=== PATIENT | male | born 1950 | race Caucasian/White ===

== ENCOUNTER 2023-12-06 12:01 | Inpatient (IN) ==
[2023-12-06 12:48] LABS: Hematocrit (blood only) 31.4 % (42.0-52.0); Hemoglobin 9.6 g/dl (14.0-18.0); Mean Corpuscular Hemoglobin 24.6 pg (25.0-34.0); Mean Corpuscular Hgb Conc 30.6 g/dL (32.0-36.0); Mean Corpuscular Volume 80.5 fL (80.0-100.0); Mean Platelet Volume 9.4 fL (9.4-12.4); Nucleated RBC # (auto) 0.06 K/uL (0.00-0.12); Nucleated RBC % (auto) 0.3 %; Platelet Count 623 K/uL (130-400); RDW Coefficient of Variation 19.5 % (11.5-14.5); RDW Standard Deviation 56.5 fL (36.4-46.3); White Blood Count 18.06 K/ul (4.8-10.8)
[2023-12-06 13:07] LABS: Basophils # (auto) 0.01 K/uL (0.00-0.20); Basophils % (auto) 0.1 %; Eosinophils # (auto) 0.05 K/uL (0.00-0.50); Eosinophils % (auto) 0.3 %; Immature Granulocytes # (auto) 0.27 K/uL (0.01-0.20); Immature Granulocytes % (auto) 1.5 %; Lymphocytes # (auto) 0.66 K/uL (1.20-3.40); Lymphocytes % (auto) 3.7 %; Monocytes # (auto) 0.39 K/uL (0.11-0.59); Monocytes % (auto) 2.2 %; Neutrophils # (auto) 16.68 K/uL (1.40-6.50); Neutrophils % (auto) 92.2 %; Rouleaux 1+
[2023-12-06 13:13] LABS: Alanine Aminotransferase 76 U/L (7-52); Albumin Globulin Ratio 0.8 (0.9-2); Albumin Level 3.1 gm/dl (3.4-5.0); Alkaline Phosphatase 107 U/L (34-104); Anion Gap 11 (3-11); Aspartate Aminotransferase 61 U/L (13-39); BUN Creatinine Ratio 28.3 (10-20); Bilirubin,Total 0.5 mg/dl (0.2-1.0); Blood Urea Nitrogen 32 mg/dl (6-23); Calcium 8.9 mg/dl (8.6-10.3); Carbon Dioxide 24 mmol/L (21-32); Chloride 98 mmol/L (98-107); Globulin 3.9 gm/dl (2.5-4.0); Glucose 136 mg/dl (70-99(Fasting)); Potassium 4.4 mmol/L (3.5-5.1); Sodium 133 mmol/L (136-145)
[2023-12-06 13:18] LABS: Partial Thromboplastin Ratio 0.9; Partial Thromboplastin Time 24 Seconds (21-31); Prothrombin Time 11.1 Seconds (9.0-12.0)
[2023-12-06 13:19] LABS: Troponin I High Sensitivity 10.6 pg/ml (0-20)
--- NOTE | 2023-12-06 13:21 | Emergency Department Note ---
Impression & Plan Acute respiratory failure with hypoxia, Metastatic renal cell carcinoma to bone, SOB (shortness of breath), Acute pulmonary edema ED Provider Note NAME: OSCAR YIN AGE: 73 SEX: M : 1950 ARRIVES VIA: Walk-In INFORMANT: Patient ED PROVIDER(S): Armaan Diego DO CHIEF COMPLAINT: Shortness of breath HPI: Patient is a 73-year-old male with a past medical history of metastatic renal cell carcinoma and pneumonitis who presents to the ER for shortness of breath. He notes he has metastatic renal cell carcinoma and is taking Keytruda. Over the past 2 to 3 weeks his shortness of breath has been getting worse. He admits to being seen here recently and had a scan of his chest. Denies any headache or change in vision. No chest pain. No belly pain, nausea, vomiting, or diarrhea. No dysuria, urgency, or frequency. No other exacerbating or remitting factors. ADDITIONAL HISTORY OBTAINED: Per HPI Chronic Medical/Social Conditions Affecting Care: Per HPI PAST MEDICAL HISTORY:See Below PAST SURGICAL HISTORY:See Below FAMILY HISTORY:See Below SOCIAL HISTORY:See Below HOME MEDICATIONS:See Below ALLERGIES:See Below VITALS:See Below PHYSICAL EXAMINATION: GENERAL: Sitting up in bed, alert, well appearing, well nourished, no distress, non-toxic EYE EXAM: normal conjunctiva. OROPHARYNX: mucous membranes are moist NECK: supple, no nuchal rigidity, no adenopathy, non-tender LUNGS: Clear to auscultation. Normal chest wall mechanics HEART: no murmurs, S1 normal and S2 normal ABDOMEN: abdomen soft, non-tender, normo-active bowel sounds, no masses, no rebound or guarding. UPPER EXTREMITIES: upper extremities are grossly normal. LOWER EXTREMITIES: No pitting edema. Calves are equal bilaterally NEURO EXAM: Normal sensorium, cranial nerves II-XII grossly intact, normal speech, no gross weakness of arms, no gross weakness of legs. MEDICAL DECISION MAKING: Patient is a 73-year-old male who presents to the ER for shortness of breath. IV was established medicos obtained. Upon arrival he is found to be hypoxic at 88% on room air. He was placed on 2 L nasal cannula throughout his stay while in the ER. Labs show leukocytosis of 18,000. Mild anemia at 10. INR unremarkable. BMP along with LFTs bilirubin was unremarkable. Troponin was negative. Flu COVID and RSV was negative. Chest x-ray was obtained and did show pulmonary vascular congestion. Do favor this likely cause of the hypoxia. He was given IV Lasix. Updated bedside. Discussed case with the hospitalist for further evaluation management treatment. CT angio of the chest was negative done on the and was negative for PE and consequently did not repeat this as I do not feel this would be beneficial at this time. Consults/Care Managements Discussions: Per [facility] Triage Nursing notes reviewed. Limited review of prior medical records performed Vital Signs: reviewed and remarkable for hypoxia Differential diagnosis: Differential diagnoses includes but is not limited to pneumonia, bronchitis, COPD/Asthma exacerbation, pneumothorax, pulmonary embolism, congestive heart failure, acute coronary syndrome ER treatment provided: See below Diagnostics interpreted by me include EKG and cardiac monitoring as listed below: -Cardiac Monitoring: An order was placed for continuous cardiac monitoring. The monitor shows a rate of 94 with sinus rhythm. -ECG: Sinus rhythm rate of 94 Normal axis No PVCs QTc 415 -Laboratory studies:Interpreted by me as stated above in MDM and shown below. Imaging studies: Xrays: As interpreted by me: Portable AP upright 1 view of the chest shows pulmonary vascular congestion CTs show: none Procedures:none Critical Care: I have personally spent 32 minutes of critical care time in the direct management of this patient. This includes bedside care, interpretation of diagnostic studies, and testing, discussion with consultants, patient, and family members, and other required patient management activities. This 32 minutes is in excess of all separately billable procedures. Past Med/Surg History Problem List (Updated 12/06/23 @ 16:45 by Armaan Diego DO) Hypertension Acute pulmonary edema (Acute) Acute respiratory failure with hypoxia (Acute) Pneumonitis (Acute) SOB (shortness of breath) (Acute) Metastatic renal cell carcinoma to bone (Chronic) Medical History (Updated 12/06/23 @ 16:45 by Armaan Diego DO) MDD (major depressive disorder) Lyme disease Left inguinal hernia Hyperlipidemia BPH with elevated PSA Bloody stool COVID-19 Surgical History (Updated 10/27/22 @ 14:10 by Summer Escobedo RN) S/P TURP (transurethral resection of prostate) Hx of prostate biopsy H/O colonoscopy H/O hernia repair Family History (Updated 10/27/22 @ 13:23 by Summer Escobedo RN) Mother Cancer colon and metastatic liver Father Cancer Lung Sister Cancer Lung Sister Cancer Kidney Social History (Updated 10/27/22 @ 13:25 by Summer Escobedo RN) Smoking Status: Never smoker Second Hand Exposure: Yes; Hx Alcohol Use: Yes Alcohol type: beer Alcohol Intake Frequency: 2-3 x/Week Hx Substance Use: No Preferred Language: Divehi Visual Impairment: No Limitations Hearing Ability: Normal Ophthalmic Aide Required: No Beliefs That Will Affect Care: None Current Living Situation: Spouse current occupational status: retired current occupation: IT Feels Safe at Home: Yes Diet: regular Assistive Devices: Glasses Allergies Allergies Allergy/AdvReac Type Severity Reaction Status Date / Time Penicillins Allergy Intermediate Rash Verified 05/23/23 15:08 Home Meds Home Medications Medication Instructions Recorded Confirmed aspirin 81 mg chewable tablet 81 mg PO DAILY 10/27/22 05/23/23 bupropion HCl 100 mg tablet,12 hr 100 mg PO BID 10/27/22 05/23/23 sustained-release (Wellbutrin SR) cholecalciferol (vitamin D3) 100 100 mcg PO DAILY 10/27/22 05/23/23 mcg (4,000 unit) tablet ferrous sulfate 325 mg (65 mg 325 mg PO .QOD 10/27/22 05/23/23 iron) tablet,delayed release finasteride 5 mg tablet 5 mg PO DAILY 10/27/22 05/23/23 losartan 25 mg tablet (Cozaar) 25 mg PO DAILY 10/27/22 05/23/23 multivitamin 1 tab PO DAILY 10/27/22 05/23/23 omega 2-kyj-nrl-fish oil 1,000 mg 1 cap PO DAILY 10/27/22 05/23/23 (120 mg-180 mg) capsule (Fish Oil) simvastatin 10 mg tablet 10 mg PO DAILY 10/27/22 05/23/23 cabozantinib 40 mg tablet 40 mg PO DAILY 11/09/22 05/23/23 (Cabometyx) nivolumab 40 mg/4 mL intravenous IV 11/09/22 05/23/23 solution (Opdivo) ondansetron HCl 8 mg tablet 8 mg PO DAILY 11/09/22 05/23/23 prochlorperazine maleate 10 mg 10 mg PO Q6H PRN 11/09/22 05/23/23 tablet (Compazine) calcium carbonate (Calcium 500) 500 mg PO BID 05/23/23 05/23/23 mecobalamin (vitamin B12) 1,000 1,000 mcg PO BID 05/23/23 05/23/23 mcg chewable tablet Results & Data (ED) Vital Signs Vital Signs - 24 hr 12/06/23 12:10 Temperature 36.8 C Temperature Source Skin Pulse Rate 101 H Respiratory Rate 20 Blood Pressure 136/75 Blood Pressure Mean 95 Pulse Oximetry 89 L Oxygen Delivery Method Room Air Sepsis Recent Fever Within 48 Hours No Sepsis New/Unexplained Change in Mental Status No Sepsis Action Taken by Nursing No Action Required Laboratory Data 12/06/23 12:28 12/06/23 12:28 Lab Results 12/06/23 Range/Units 12:28 WBC 18.06 H (4.8-10.8) K/ul RBC 3.90 L (4.70-6.10) M/uL Hgb 9.6 L (14.0-18.0) g/dl Hct 31.4 L (42.0-52.0) % MCV 80.5 (80.0-100.0) fL MCH 24.6 L (25.0-34.0) pg MCHC 30.6 L (32.0-36.0) g/dL RDW Std Deviation 56.5 H (36.4-46.3) fL RDW Coeff of Gumaro 19.5 H (11.5-14.5) % Plt Count 623 H (130-400) K/uL MPV 9.4 (9.4-12.4) fL Immature Gran % (Auto) 1.5 % Neut % (Auto) 92.2 % Lymph % (Auto) 3.7 % Collin % (Auto) 2.2 % Eos % (Auto) 0.3 % Baso % (Auto) 0.1 % Neut # (Auto) 16.68 H (1.40-6.50) K/uL Lymph # (Auto) 0.66 L (1.20-3.40) K/uL Collin # (Auto) 0.39 (0.11-0.59) K/uL Eos # (Auto) 0.05 (0.00-0.50) K/uL Baso # (Auto) 0.01 (0.00-0.20) K/uL Immature Gran # (Auto) 0.27 H (0.01-0.20) K/uL Absolute Nucleated RBC 0.06 (0.00-0.12) K/uL Nucleated RBC % (auto) 0.3 % Rouleaux 1+ PT 11.1 (9.0-12.0) Seconds INR 1.0 (0.9-1.1) APTT 24 (21-31) Seconds PTT Ratio 0.9 Sodium 133 L (136-145) mmol/L Potassium 4.4 (3.5-5.1) mmol/L Chloride 98 (98-107) mmol/L Carbon Dioxide 24 (21-32) mmol/L Anion Gap 11 (3-11) BUN 32 H (6-23) mg/dl Creatinine 1.13 (0.6-1.4) mg/dl Est Cr Clr Drug Dosing Not Reportable eGFR 69.06 BUN/Creatinine Ratio 28.3 H (10-20) Glucose 136 H (70-99(Fasting)) mg/dl Calcium 8.9 (8.6-10.3) mg/dl Total Bilirubin 0.5 (0.2-1.0) mg/dl AST 61 H (13-39) U/L ALT 76 H (7-52) U/L Alkaline Phosphatase 107 H (34-104) U/L Troponin I High Sens 10.6 (0-20) pg/ml Total Protein 7.0 (6.0-8.3) gm/dl Albumin 3.1 L (3.4-5.0) gm/dl Globulin 3.9 (2.5-4.0) gm/dl Albumin/Globulin Ratio 0.8 L (0.9-2) SARS-CoV-2 (PCR) NEGATIVE (Negative) Influenza Type A (PCR) Negative (Neg) Influenza Type B (PCR) Negative (Neg) RSV (RT-PCR) Negative (Neg) Administered Medications Discontinued Medications Furosemide (Furosemide 40 Mg/4 Ml Vial) 40 mg IV NOW STA Stop: 12/06/23 14:04 Last Admin: 12/06/23 14:37 Dose: 40 mg Documented By: NRB Imaging Data Radiologist's Impression: Chest X-Ray 12/06/23 12:14 SINGLE VIEW CHEST CLINICAL HISTORY: Atypical chest pain. FINDINGS: An AP, portable, upright chest radiograph is compared to chest x-ray and chest CT dated 12/01/2023. The heart is enlarged. There is pulmonary vascular congestion with evidence of interstitial edema. Atelectasis is noted at the lung bases. Small pleural effusions are suspected. No pneumothorax is seen. The skeletal structures are osteopenic. The bony thorax is grossly intact. Degenerative change is noted in the spine. IMPRESSION: 1. Cardiomegaly with evidence of congestive failure and pulmonary edema. This has worsened as compared to 12/01/2023. Correlate clinically for evidence of a superimposed infectious/inflammatory pneumonitis. Radiographic follow-up to resolution is recommended. 2. Suspect small pleural effusions ACT 112: Negative or not required by law. Electronically signed by: Jim Griffin M.D. 12/06/2023 1:39 PM Discharge Plan Visit Data Chief Complaint: Shortness of Breath/Dyspnea Stated Complaint: FEVER, SOB, COUGH, LOW O2 ED Provider: Armaan Diego Discharge Problem: Acute respiratory failure with hypoxia, Metastatic renal cell carcinoma to bone, SOB (shortness of breath), Acute pulmonary edema Patient Disposition: Admitted As Inpatient Discharge Instructions Interventions: ED Discharge Assessment Last Done: 12/06/23 15:50
[2023-12-06 13:39] LABS: Influenza A virus by PCR Negative (Neg); Influenza B virus by PCR Negative (Neg); RSV by PCR Negative (Neg); SARS CoV2 RNA(COVID-19) Ceph NEGATIVE (Negative)
--- NOTE | 2023-12-06 13:40 | XRay Report ---
SINGLE VIEW CHEST CLINICAL HISTORY: Atypical chest pain. FINDINGS: An AP, portable, upright chest radiograph is compared to chest x-ray and chest CT dated 11/05. The heart is enlarged. There is pulmonary vascular congestion with evidence of interstitial e ting. Atelectasis is noted at the lung bases. Small pleural effusions are suspected. No pneumothorax is seen. The skeletal structures are osteopenic. The bony thorax is grossly intact. Degenerative roldan ge is noted in the spine. IMPRESSION: 1. Cardiomegaly with evidence of congestive failure and pulmonary edema. This has worsened as compare d to 12/01/2023. Correlate clinically for evidence of a superimposed infectious/inflammatory pneumonit is. Radiographic follow-up to resolution is recommended. 2. Suspect small pleural effusions ACT 112: Negative or not required by law. Electronically signed by: Jim Griffin M.D. 12/06/2023 1:39 PM
[2023-12-06] MEDS: FUROSEMIDE 40 MG/4 ML VIAL IV STA (14:37)
--- NOTE | 2023-12-06 15:28 | History & Physical Report ---
Date of Service December 06, 2023 Assessment & Plan (1) Acute respiratory failure with hypoxia: (2) Pneumonitis: (3) Acute pulmonary edema: (4) Metastatic renal cell carcinoma to bone: (5) Hypertension: Plan: 73-year-old male with history of metastatic renal cell carcinoma, with osseous and pulmonary hilar/mediastinal mets, hypertension, and other problems noted below presenting with shortness of breath and cough x 1 to 2 weeks. Acute respiratory failure with hypoxia, multifactorial, secondary to: Pulmonary edema, rule out CHF Check echocardiogram Lasix 40 mg IV daily Pneumonitis, secondary to immunotherapy Presence of mediastinal metastatic disease Currently Keytruda on hold Continue prednisone 60 mg p.o. daily started by oncologist last November 28, 2023 Check procalcitonin Start Levaquin for possible bacterial pneumonia component given immunocompromised state Start nebs 4 times daily, incentive spirometry, flutter valve Will order pulmonology service evaluation Metastatic renal cell carcinoma with osseous and pulmonary involvement Currently Keytruda on hold as per oncologist Dr. West Hypertension Patient reports blood pressure was on the lower side this morning Hold losartan DVT prophylaxis Lovenox 1 mg subcu daily CODE STATUS Patient okay with CPR and defibrillation, no mechanical ventilation or intubation Disposition Lives with family at home History of Present Illness Chief Complaint: Shortness of breath x 1-2 weeks Primary Care Provider: Joe Osborn MD 73-year-old male with history of metastatic renal cell carcinoma, with osseous and pulmonary hilar/mediastinal mets, hypertension, and other problems noted below presenting with shortness of breath and cough x 1 to 2 weeks. Patient follows with [facility] oncology and [facility] in [place]. About 2 weeks ago, patient developed dry cough and shortness of breath associated with some voice hoarseness. CT chest done as an outpatient showed new bilateral micronodular infiltrates consistent with pneumonitis. Symptoms felt to be multifactorial secondary to drug-induced pneumonitis, presence of bulky mediastinal mid metastatic disease process. He was started on prednisone 60 mg p.o. daily last November 28, 2023. Due to persistence of symptoms, patient was referred to dietary pulmonary service and was seen last December 04, 2023. He was advised to continue with the prednisone 60 mg p.o. daily and HCTZ 12.5 mg daily as needed for lower EXTR edema was also started. Today, patient presented to the ER for worsening of shortness of breath and cou gh. Denies fevers or chills. Found to be hypoxic in the ER in the high 90s on room air, placed on 2 L of O2 by cell cannula. Chest x-ray showing possible pulmonary edema and groundglass opacities possible infectious versus inflammatory in etiology. On exam, patient seen resting in bed, comfortable on 2 L of O2. No other new symptoms. Allergies Allergy/AdvReac Type Severity Reaction Status Date / Time Penicillins Allergy Intermediate Rash Verified 05/23/23 15:08 Home Medications Medication Instructions Recorded Confirmed Type aspirin 81 mg chewable tablet 81 mg PO DAILY 10/27/22 05/23/23 History bupropion HCl 100 mg tablet,12 hr 100 mg PO BID 10/27/22 05/23/23 History sustained-release (Wellbutrin SR) cholecalciferol (vitamin D3) 100 100 mcg PO DAILY 10/27/22 05/23/23 History mcg (4,000 unit) tablet ferrous sulfate 325 mg (65 mg 325 mg PO .QOD 10/27/22 05/23/23 History iron) tablet,delayed release finasteride 5 mg tablet 5 mg PO DAILY 10/27/22 05/23/23 History losartan 25 mg tablet (Cozaar) 25 mg PO DAILY 10/27/22 05/23/23 History multivitamin 1 tab PO DAILY 10/27/22 05/23/23 History omega 3-coo-spe-fish oil 1,000 mg 1 cap PO DAILY 10/27/22 05/23/23 History (120 mg-180 mg) capsule (Fish Oil) simvastatin 10 mg tablet 10 mg PO DAILY 10/27/22 05/23/23 History cabozantinib 40 mg tablet 40 mg PO DAILY 11/09/22 05/23/23 History (Cabometyx) nivolumab 40 mg/4 mL intravenous IV 11/09/22 05/23/23 History solution (Opdivo) ondansetron HCl 8 mg tablet 8 mg PO DAILY 11/09/22 05/23/23 History prochlorperazine maleate 10 mg 10 mg PO Q6H PRN 11/09/22 05/23/23 History tablet (Compazine) calcium carbonate (Calcium 500) 500 mg PO BID 05/23/23 05/23/23 History mecobalamin (vitamin B12) 1,000 1,000 mcg PO BID 05/23/23 05/23/23 History mcg chewable tablet Past Med/Surg History Problem List (Updated 12/06/23 @ 15:34 by Rk Sanderson MD) Hypertension Acute pulmonary edema Acute respiratory failure with hypoxia Pneumonitis (Acute) SOB (shortness of breath) (Acute) Metastatic renal cell carcinoma to bone (Chronic) Medical History (Updated 12/06/23 @ 15:34 by Rk Sanderson MD) MDD (major depressive disorder) Lyme disease Left inguinal hernia Hyperlipidemia BPH with elevated PSA Bloody stool COVID-19 Surgical History (Updated 10/27/22 @ 14:10 by Summer Escobedo, BASSAM) S/P TURP (transurethral resection of prostate) Hx of prostate biopsy H/O colonoscopy H/O hernia repair Family History (Updated 10/27/22 @ 13:23 by Summer Escobedo, RN) Mother Cancer colon and metastatic liver Father Cancer Lung Sister Cancer Lung Sister Cancer Kidney Social History (Updated 10/27/22 @ 13:25 by Summer Escobedo, RN) Smoking Status: Never smoker Second Hand Exposure: Yes; Hx Alcohol Use: Yes Alcohol type: beer Alcohol Intake Frequency: 2-3 x/Week Hx Substance Use: No Preferred Language: Estonian Visual Impairment: No Limitations Hearing Ability: Normal Beliefs That Will Affect Care: None Current Living Situation: Spouse current occupational status: retired current occupation: IT Feels Safe at Home: Yes Diet: regular Assistive Devices: Glasses Review of Systems Review of Systems: all noted and negative except for above Physical Exam Physical Exam: General- oriented x 3, not in distress, speaks in sentences with no effort or accessory muscle use Head- atraumatic Eyes- PERRL, EOMI, anicteric ENT- oropharynx clear Neck- supple, no JVD, no adenopathy, no thyromegaly; carotids +2/2, no bruits appreciated Lungs-Positive crackles bilateral bases, no wheezing, good air entry bilaterally Heart- normal rate, regular rhythm; no murmur, no gallop, no rub appreciated Abdomen- normal bowel sounds, nondistended, soft, nontender, no masses or hepatosplenomegaly Extremities-mild lower extremity edema, no calf tenderness; peripheral pulses intact Neuro- alert, oriented x 3; CN 2-12 grossly intact; motor 5/5 bilaterally;sensation 100% on all extremities; no other gross focal neurologic deficits Skin- warm & dry Results & Data Results & Data Vital Signs (Past 12 Hours) Vital Signs Temp Pulse Resp BP Pulse Ox O2 Del Method 12/06/23 12:10 36.8 C 101 H 20 136/75 89 L Room Air all noted and reviewed including below Code Status & VTE Plan VTE Prophylaxis Plan VTE Prophylaxis will be ordered: Yes
--- NOTE | 2023-12-06 15:29 | Electrocardiogram Report ---
Test Reason : Blood Pressure : */* mmHG Vent. Rate : 94 BPM Atrial Rate : 94 BPM P-R Int : 146 ms QRS Dur : 82 ms QT Int : 332 ms P-R-T Axes : 35 -12 10 degrees QTcB Int : 415 ms Normal sinus rhythm Minimal voltage criteria for LVH, may be normal variant Borderline ECG When compared with ECG of 01-Dec-2023 15:29, No significant change was found Confirmed by Mauricio Salguero ([id number]) on 12/06/2023 3:29:01 PM Referred By: Confirmed By: Mauricio Salguero
[2023-12-06] MEDS ORDERED: ACETAMINOPHEN 325 MG TAB PO PRN (16:14)
[2023-12-06] MEDS ORDERED: Patient's HEIGHT &/or WEIGHT Needed SCH (16:30)
[2023-12-06] MEDS: ADVANCED PROBIOTIC 625 MG CAPSULE PO SCH (18:09)
[2023-12-06] MEDS: levoFLOXacin 750 MG TAB PO ONE (18:09)
[2023-12-06] MEDS ORDERED: ALBUTEROL HFA 8 GM INHALER INH PRN (18:25)
[2023-12-06] MEDS: ACETAMINOPHEN W/CODEINE #3 1 TAB PO PRN (18:36)
[2023-12-06] MEDS: FERROUS SULFATE 325 MG TAB PO SCH (19:51)
[2023-12-06] MEDS: POLYETHYLENE (MIRALAX) 17 GM PACK PO SCH (20:42)
[2023-12-06] MEDS: buPROPion SR 100 MG TABCR PO SCH (20:45)
[2023-12-06] MEDS: CALCIUM CARBONATE 1250MG TAB PO SCH (20:45)
[2023-12-06] MEDS: CYANOCOBALAMIN (B-12) 500 MCG TABLET PO SCH (20:46)
[2023-12-06] MEDS: LEVALBUTEROL HCL 0.63 MG/3 ML NEB NEB SCH (20:51)
--- OUTSIDE RECORDS SUMMARY | 2023-12-07 00:12 | External Medical Summary | Summary of Care ---
Author Name Unknown Organization [facility] Address [address] [place] [address] Phone [phone] Care Team Providers Care Line Servicer Name Role Phone Joe Osborn MD Primary Care Provider + Reason for Visit * Reason Onset Date Comments Advice 12/04/2023 Dr. West Test Results 12/04/2023 Encounter Details Date Type Department Care Team (Late st Contact Info) Description 12/04/2023 Telephone Hematology/Oncology [facility] [place] 200 [facility] [place] [phone] Rafael West MD 200 [facility] [place] [address] Advice (Dr. West ); Test Results Allergies Active Allergy Reactions Criticality Noted Date Comments Penicillins Rash 08/26/2015 Age 19 had hepatitis a and got a rash. documented as of this encounter (statuses as of 12/04/2023) Medications Medication Sig Dispensed Refills Start Date End Date Status Aspirin 81 MG Tablet Take 1 Tablet by mouth in the morning. Active Fish Oil 1000 MG Oral Capsule Take 1 Capsule by mouth in the morning. Active Vitamin D3 50 MCG (1999) Oral Capsule Take 50 Units by mouth daily. 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 30 Tablet 3 10/27/2022 Active Additional Information Patient not taking.Reported on 11/27/2023 Prochlorperazine Maleate 10 MG Oral Tablet (Compazine)Indicatio ns:Malignant neoplasm of left kidney (HCC) Take 1 Tablet by mouth every 6 hours as needed for Nausea. 30 Tablet 3 10/27/2022 Active Additional Information Patient not taking.Reported on 11/27/2023 Udderly Smooth Extra Care 20 External CreamIndications:Mal ignant neoplasm of left kidney (HCC) Apply topically to affected area 2 times a day. Apply topically to hands and feet twice daily 228 g 3 10/27/2022 Active Sodium Fluoride 1.1 % Dental Cream (PreviDent 5000 Plus) [place] with a pea-size amount each evening before bed for 2 minutes. Spit but do not rinse after. 51 g 3 11/17/2022 Active Clobetasol Propionate 0.05 % External Ointment (Temovate)Indication s:Hand foot syndrome Apply topically to affected area 2 times a day. Apply to hands and feet 30 g 1 01/03/2023 Active Simvastatin 10 MG Oral Tablet (Zocor)Indications:H yperlipidemia, unspecified hyperlipidemia type TAKE ONE TABLET BY MOUTH EVERY DAY 90 Tablet 1 04/04/2023 04/03/19 25 Active Finasteride 5 MG Oral Tablet (Proscar) TAKE ONE TABLET BY MOUTH IN THE MORNING 90 Tablet 3 04/04/2023 04/03/19 25 Active Ammonium Lactate 12 % External Lotion (Amlactin Daily) Apply topically to affected area as needed for Dry Skin. Apply to both feet once daily. 400 g 1 05/10/2023 Active B-12 1000 MCG Oral Tablet Take by mouth. Active Calcium Carbonate 1250 (500 Ca) MG Oral Tablet Chewable 1 Tablet. 05/23/2023 Acti ve LORazepam 0.5 MG Oral Tablet (Ativan)Indications: VIANEY (generalized anxiety disorder) Take 1 Tablet by mouth 3 times a day as needed for Anxiety. 30 Tablet 1 06/19/2023 Active Albuterol Sulfate HFA 108 (90 Base) MCG/ACT Inhalation Aerosol Solution Inhale 1 puff by mouth every 6 (six) hours as needed for wheezing or shortness of breath. 8.5 g 3 06/29/2023 Active Additional Information Patient not taking.Reported on 11/27/2023 Clindamycin HCl 300 MG Oral Capsule Take 1 capsule by mouth every six hours until finished 24 Capsule 07/03/2023 Active Additional Information Patient not taking.Reported on 11/09/2023 Chlorhexidine Gluconate 0.12 % Mouth/Throat Solution (Periogard) Swish 15ml in the mouth two times a day (after meals) 473 mL 07/03/2023 Active Additional Information Patient not taking.Reported on 11/27/2023 Losartan Potassium 25 MG Oral Tablet (Cozaar) Take 1 Tablet by mouth in the morning. 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 90 Capsule 3 07/26/2023 Active Clindamycin HCl 150 MG Oral Capsule (Cleocin) take 1 capsule by mouth every 6 hours until gone 40 Capsule 1 08/22/2023 Active Additional Information Patient not taking.Reported on 11/09/2023 buPROPion HCl ER (SR) 100 MG Oral Tablet Extended Release 12 Hour (Wellbutrin SR) TAKE ONE TABLET BY MOUTH EVERY MORNING AND ONE TABLET BEFORE BEDTIME 200 Tablet 3 09/05/2023 Active Levothyroxine Sodium 25 MCG Oral Tablet (Levoxyl) Take 1 tablet (25 mcg) by mouth daily. 30 Tablet 11 10/05/2023 Active Lenvima (18 MG Daily Dose) 10 MG & 2 x 4 MG Oral Capsule Therapy Pack (Lenvatinib (18 MG Daily Dose)) Take 3 capsules (18 mg) by mouth daily. 90 Each 11 10/05/2023 Active Additional Information Patient taking differently: 14 mg daily, Reported on 11/27/2023 Ferrous Sulfate 325 (65 Fe) MG Oral Tablet (FeroSul)Indications :Iron deficiency anemia Take 1 Tablet by mouth every other day. 45 Tablet 3 10/25/2023 Active predniSONE 10 MG Oral Tablet (Deltasone)Indicatio ns:Drug-induced pneumonitis Take 6 Tablets by mouth in the morning. Or as directed by Oncology office. Take with food.. 150 Tablet 11/28/2023 Active Omeprazole 20 MG Oral Capsule Delayed Release (PriLOSEC)Indication s:Drug-induced pneumonitis Take 1 Capsule by mouth in the morning. 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 50 Tablet 2 11/30/2023 Active hydroCHLOROthiazide 12.5 MG Oral Tablet Take 1 Tablet by mouth at bedtime as needed for Other (Worsening edema in lower extremities.). 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 02/21 colon WNL armond 5y 10/19 colonoscopy 7mm sigmoid polyp . Path tubular adenoma. Armond 3y due to poor prep BPH with elevated PSA Overview: 2018 WNL . Armond 2y. Had elev PSA in past 2002 biopsy at time WNL, went on meds, no symptoms, PSA 4 this spring. See scanned results. Up from 3 1 yA Family history of colon cancer in mother MDD (major depressive disorder), recurrent episo de, mild Hyperlipidemia documented as of this encounter (statuses as of 12/04/2023) Resolved Problems Problem Noted Date Diagnosed Date Resolved Date COVID-19 virus infection 08/10/2022 Left flank pain 07/06/2022 10/24/2023 Left inguinal hernia 03/09/2016 023 Blood stool 08/29/2016 documented as of this encounter (statuses as of 12/04/2023) Immunizations Name Administration Dates Next Due COVID-19 mRNA, LNP-s, No Pre serve, 2-Dose Series (eTruck) 12/09/2020,05/13/2020,04/15/2020 COVID-19, LNP-s, No Preserve , Ryder-sucrose, Ages 12+ (eTruck) 08/30/2021 COVID-19, MRNA-LNP, 23-24, P F, 30 MCG/0.3 mL, 12 YRS AND ABOVE, IM ([facility]) 06/20/2023 Covid-19, Mrna, Lnp-s, Pf, B ivalent, 30 Mcg, IM, 12 yrs and above (eTruck) 12/31/2021 Pneumococcal Conjugate Vacc, 13 Valent (Prevnar) 08/29/2016 Pneumococcal Polysaccharide PPV23 (Pneumovax) 08/30/2017 Season Influenza, Quad, PF, Adjuvanted, 65+ Yrs, IM (FLUAD) 12/20/2019 Seasonal Influenza, High Dos e, Trivalent, PF, IM (Fluzone HD) 11/09/2023 Seasonal Influenza, PF, 6 M & above, IM , (FluLaval or Fluzone) 12/05/2020,11/22/2017,01/04/2017 Seasonal Influenza, Quadriva lent Hd (Fluzone Hd) 12/19/2022,12/08/2021 Seasonal Influenza, Quadriva lent, No Preserve, IM 11/24/2015 Seasonal Influenza, Trivalen t, (IIV3), with Preserv, (Fluzone) 12/25/2018 Seasonal Influenza, Trivalen t, Adjuvanted, 65+ YRS, PF, (Fluad) 12/25/2018 TDAP (age 10 and older)(Boostrix) 08/26/2015 Varicella Zoster Vaccine (Adult) 09/04/2011 Zoster Vaccine Recombinant (Shingrix) 02/06/2018 ,08/30/2017 documented as of this encounter Social History Tobacco Use Types Packs/Day Years Used Date Smoking Tobacco: Never Smokeless Tobacco: Never Alcohol Use Standard Drinks/Week Comments Not Currently 3 (1 standard drink = 0.6 oz pur e alcohol) update to Zero w/ch PHQ-2 Answer Date Recorded PHQ Adult Total Score 0 06/15/2022 Hunger Vital Sign Answer Date Recorded Within the past 12 months, y ou worried that your food would run out before you got the money to buy more. Never true 06/16/19 23 Within the past 12 months, t he food you bought just didn't last and you didn't have money to get more. Never true 06/15/2022 Utilities Answer Date Recorded Do you have trouble paying y our heating, water, or electric bill? (Adult - for ages 18 years and over) Not on file 08/22/2023 Is your family able to pay t he heat, water, or electric bill? (Household - for ages 0-17 years) Not on file 08/22/2023 Does your family have access to good internet? (Household - for ages 0-17 years) Not on file 08/22/2023 Social Connections Answer Date Recorded How often do you feel lonely or isolated from those around you? (Adult - for ages 18 years and over) Not on file 08/22/2023 Sex and Gender Information Value Date Recorded Sex Assigned at Male 06/15/2022 8:17 AM EDT Gender Identity Male 06/15/2022 8:17 AM EDT Sexual Orientation Straight 06/15/2022 8: 17 AM EDT Job Start Date Occupation Industry Not on file Not on file Not on file documented as of this encounter Miscellaneous Notes * Telephone Encounter - Nader Elizondo RN - 12/04/2023 2:[address] West/Damaris- ISABEL, patient seen at [facility] ER 11/30 for SOB. PT 02 sat 97%, CTA of Chest completed as well as CXR andEKG. Pt discharged same day and advised to follow up. He is scheduled to see Damaris on 12/11. * Telephone Encounter - Nader Elizondo RN - 12/04/2023 2:45 PM EDT Called patients Yulia back. No answer, LMOM with return #. * Telephone Encounter - Karie Justin OSA - 12/04/2023 2:33 PM EDT Patients Yulia called to speak with Savi. She advised he had lab work completed this morningas Damaris Dickey instructed him too. She also advised Bayron went to the ER on Monday and they advised him to follow up with hem/onc on Monday. She was inquiring Dr. West's office would want him to be seen in person or if she could just speak with someone about his ER visit. Please contact Yulia at your earliest convenience at [phone]. She advised she will be unavailable from 3-4 pm today. Thank you. documented in this encounter Plan of Treatment Upcoming Encounters Date Type Department Care Team (Late st Contact Info) Description 12/12/2023 3:00 PM EDT Office Visit [facility]ematology[facility] [phone] [facility] [place] [address] 12/13/2023 11:30 AM EDT Office Visit Urology, [facility] 132 [facility] [place] [address] Shar Brown MD 27 [facility] [place] [address] 12/19/2023 9:30 AM EDT Pharmacy Pharmacy Hematology Oncology [facility] [address] [place] [address] [facility], [facility] Hem/Onc [address] [place] [address] 12/25/2023 11:20 AM EDT Office Visit Family Practice [facility] [address] [place] [address] Joe Osborn MD [address] [place] [address] 12/27/2023 2:45 PM EDT Office Visit Hematology/Oncology [facility] [address] [place] [phone] Rafael West MD 200 [facility] [place] [address] 01/01/2024 2:15 PM EDT Office Visit Dermatology [facility] 200 [facility] [place], [place] [address] Bayron Molina MD 200 [facility] [place], [place] [address] 03/11/2024 3:20 PM EST Office Visit Pulmonary Medicine, [facility] [address] [place] [address] Isael Ang MD [address] [place] [address] 06/20/2024 9:20 AM EDT Office Visit Family [facility] [address] [place] [address] Joe Osborn MD [address] [place] [address] 09/25/2024 7:40 AM EDT Office Visit Pulmonary Medicine, [facility] [address] [place] [address] Isael Ang MD [address] [place] [address] Scheduled Procedures Name Priority Associated Diagnoses Date/Ti me COLONOSCOPY FLEXIBLE PROXIMA L DIAGNOSTIC Recall History of colon polyps Family history of colon cancer Health Maintenance Due Date Last Done Comments Cologuard 05/16/1996 Fecal Occult Blood Test 05/16/1996 Sigmoidoscopy 05/16/1996 Adult Wellness Visit 05/16/2017 Depression Monitoring 06/16/2023 06/15/2022 COVID-19 Vaccine ( season) 2023 06/20/2023, 12/31/2021, 08/30/2021, Additional history exists Colonoscopy 02/20/2024 02/19/2019, 02/03, 10/26/2015, Additional history exists Colorectal Cancer Screening 02/20/2024 TSH 11/27/2024 11/28/2023, 05/2023, 10/17/2023, Additional history exists GFR 12/03/2024 12/04/2023, 11/05, 11/07/2023, Additional history exists Albumin/Creatinine Ratio 07/07/2025 07/07/2022 DTap/Tdap Vaccines (2 - Td or Tdap) 08/25/2025 08/26/2015 Lipid Panel 05/01/2028 05/01/2023, 100 07/2021, 10/05/2020, Additional history exists Pneumococcal Vaccine: 65+ Years Completed 08/30/2017, 08/29/2016 Zoster Vaccines Completed 02/06/2018, 08/05, 09/04/2011 RETIRED - COLONOSCOPY-EVERY 5 YRS AGES 18-100 Discontinued 02/19/2019, 02/19/2019, 10/26/2015, Additional history exists Influenza Vaccine (FLU shot) Completed 11/09/2023, 12/19/2022, 12/08/2021, Additional history exists HPV (Gardasil) Vaccine Aged Out No lo nger eligible based on patient's age to complete this topic Hepatitis B Vaccine Aged Out No longe r eligible based on patient's age to complete this topic MENINGOCOCCAL (MENACTRA/MENVEO) Aged Out No longer eligible based on patient's age to complete this topic documented as of this encounter Medical Devices Implanted Type Area Director Clinical Applications Device Identifier Shelf Expiration Date Model / Serial / Lot Mesh 3dmax 3.1x5.3in Lft Med - [id number] Implanted:Qty: 1 on 12/18/2017 by Aashish Schwartz MD at OR [facility] Left: Groin CR BARD : DAVOL 09/30/2021 [id number] / / [id number] documented as of this encounter Advance Directives * Full Code (Latest Code Status on File) Date Activated Date Inactivated Comments 10/04/2022 5:49 PM 10/04/2022 11:15 PM This order re flects the patients wishes and were consensually agreed upon. Question Answer Comments Discussion of Advance Direct britta occurred with: Not Discussed due to patient's condition * Full Code Date Activated Date Inactivated Comments 10/04/2022 2:12 PM 10/04/2022 5:49 PM This order ref lects the patients wishes and were consensually agreed upon. Question Answer Comments Discussion of Advance Directives occurred with: Patient Care Teams Line Servicer Relationship Specialty Start Date End Date Joe Osborn MD [address] [place] [address] PCP - General Family Medicine 08/26/15 documented as of this encounter
--- OUTSIDE RECORDS SUMMARY | 2023-12-07 00:12 | External Medical Summary | Summary of Care ---
Author Name Unknown Organization [facility] Address [address] [place] [address] Phone [phone] Care Team Providers Care Vp & General Counsel Name Role Phone Joe Osborn MD Primary Care Provider + Reason for Visit * Reason Onset Date Comments Advice 12/04/2023 Dr. West Test Results 12/04/2023 Encounter Details Date Type Department Care Team (Late st Contact Info) Description 12/04/2023 Telephone Hematology/Oncology [facility] [place] [address] [facility] [place] [phone] Rafael West MD 200 [facility] [place] [address] Advice (Dr. West ); Test Results Allergies Active Allergy Reactions Criticality Noted Date Comments Penicillins Rash 08/26/2015 Age 19 had hepatitis a and got a rash. documented as of this encounter (statuses as of 12/05/2023) Medications Medication Sig Dispensed Refills Start Date [...] 1.1 % Dental Cream (PreviDent 5000 Plus) [place] with a pea-size amount each evening before [...] as of this encounter (statuses as of 12/05/2023) Active Problems Problem Noted Date Diagnosed Date [...] as of this encounter (statuses as of 12/05/2023) Resolved Problems Problem Noted Date Diagnosed Date Resolved Date COVID-19 virus infection 08/10/2022 Left flank pain 07/06/2022 10/24/2023 Left inguinal hernia 03/09/2016 023 Blood stool 08/29/2016 documented as of this encounter (statuses as of 12/05/2023) Immunizations Name Administration Dates Next Due COVID-19 mRNA, LNP-s, No Pre serve, 2-Dose Series (ii4b) 12/09/2020,05/13/2020,04/15/2020 COVID-19, LNP-s, No Preserve , Ryder-sucrose, Ages 12+ (ii4b) 08/30/2021 COVID-19, MRNA-LNP, 23-24, P F, 30 MCG/0.3 mL, 12 YRS AND ABOVE, IM ([facility]) 06/20/2023 Covid-19, Mrna, Lnp-s, Pf, B ivalent, 30 Mcg, IM, 12 yrs and above (ii4b) 12/31/2021 Pneumococcal Conjugate Vacc, 13 Valent (Prevnar) [...] encounter Miscellaneous Notes * Telephone Encounter - Savi Small RN - 12/05/2023 9:22 AM EDT Reviewed with Dr West. Patient should continue 60mg prednisone daily. Patient is scheduled to see Damaris 12/12/23. Plan is to potentially decrease to 50mg prednisone daily when patient is seen, depending on symptoms. Can consider also adding in bactrim prophylaxis at office visit next week. Called patient. He verbalized understanding. * Telephone Encounter - Nader Elizondo RN - 12/04/2023 2:[address] West/Slava HALL, patient seen at [facility] ER 11/30 for SOB. PT 02 sat [...] contact Yulia at your earliest convenience at [phone]. She advised she will be unavailable from 3-4 pm today. Thank you. documented in this encounter Plan of Treatment Upcoming Encounters Date Type Department Care Team (Late st Contact Info) Description 12/12/2023 3:00 PM EDT Office Visit Hematology/Oncology [facility] [address] [place] [phone] Damaris Dickey CRNP [address] [place] [address] 12/13/2023 11:30 AM EDT Office Visit Urology, [facility] [address] [place] [address] Shar Brown MD [address] [place] [address] 12/19/2023 9:30 AM EDT Pharmacy Pharmacy Hematology Oncology [facility] [address] [place] [address] [facility] Hem/Onc [address] [place] [address] 12/25/2023 11:20 AM EDT Office Visit [facility] 132 [facility] [place] [address] Joe Osborn MD 132 [place] [address] 12/27/2023 2:45 PM EDT Office Visit Hematology/Oncology [facility] [address] [facility] [place] [address] Rafael West MD [address] [facility] [place] [place] [address] 01/01/2024 2:15 PM EDT Office Visit Dermatology [facility] [address] [facility] [place] [place] [address] Bayron Molina MD [address] [facility] [place] [place] [address] 03/11/2024 3:20 PM EST Office Visit Pulmonary Medicine, [facility] 132 [facility] [place] [address] Isael Ang MD [address] [place] [address] 06/20/2024 9:20 AM EDT Office Visit [facility] [place] [address] Joe Osborn MD [address] [place] [address] 09/25/2024 7:40 AM EDT Office Visit Pulmonary Medicine, [facility] [place] [address] Isael Ang MD [address] [place] [address] Scheduled Procedures Name Priority Associated Diagnoses Date/Ti [...] Additional history exists Colorectal Cancer Screening 02/20/2024 GFR 12/03/2024 12/04/2023, 11/05, 11/07/2023, Additional history exists TSH 12/03/2024 12/04/2023, 11/05, 11/07/2023, Additional history exists Albumin/Creatinine Ratio 07/07/2025 07/07/2022 DTap/Tdap Vaccines (2 - Td or Tdap) 08/25/2025 08/26/2015 Lipid Panel 05/01/2028 05/01/2023, 10/0 07/2021, 10/05/2020, Additional history exists Pneumococcal Vaccine: [...] this encounter Medical Devices Implanted Type Area Producer Device Identifier Shelf Expiration Date Model / Serial / Lot Mesh 3dmax 3.1x5.3in Lft Med - [id number] Implanted:Qty: 1 on 12/18/2017 by Aashish Schwartz MD at [facility] Left: Groin CR BARD : DAVOL 09/30/2021 [id number] / / [id number] documented as of this encounter Advance Directives [...] Advance Directives occurred with: Patient Care Teams Vp & General Counsel Relationship Specialty Start Date End Date Joe Osborn MD [address] [place] [address] PCP - General Family Medicine 08/26/15 documented as of this encounter
--- OUTSIDE RECORDS SUMMARY | 2023-12-07 00:13 | External Medical Summary | Summary of Care ---
Author Name Unknown Organization [facility] Address [address] [place] [address] Phone [phone] Care Team Providers Care Instruction Librarian Name Role Phone Joe Osborn MD Primary Care Provider + Reason for Visit * Reason Comments Outpatient Testing Encounter Details Date Type Department Care Team (Late st Contact Info) Description 12/04/2023 8:30 AM EDT Laboratory Laboratory, [facility] [address] [place] [phone] [facility] [address] [place] [address] Malignant neoplasm of left kidney (HCC); [employer] Other*[id number] Allergies Active Allergy Reactions Criticality Noted Date [...] 1.1 % Dental Cream (PreviDent 5000 Plus) Parker with a pea-size amount each evening before [...] mRNA, LNP-s, No Pre serve, 2-Dose Series ([employer]) 12/09/2020,05/13/2020,04/15/2020 COVID-19, LNP-s, No Preserve , Ryder-sucrose, Ages 12+ ([employer]) 08/30/2021 COVID-19, MRNA-LNP, 23-24, P F, 30 MCG/0.3 mL, 12 YRS AND ABOVE, IM ([facility]) 06/20/2023 Covid-19, Mrna, Lnp-s, Pf, B ivalent, 30 Mcg, IM, 12 yrs and above ([employer]) 12/31/2021 Pneumococcal Conjugate Vacc, 13 Valent (Prevnar) [...] on file documented as of this encounter Plan of Treatment Upcoming Encounters Date Type Department Care Team (Late st Contact Info) Description 12/12/2023 3:00 PM EDT Office Visit Hematology/Oncology [facility] [place] [address] [place] [phone] Damaris Dickey CRNP [address] [place] [address] 12/13/2023 11:30 AM EDT Office Visit Urology, [facility] [address] [facility] [place] [address] Shar Brown MD [address] [place] [address] 12/19/2023 9:30 AM EDT Pharmacy Pharmacy Hematology Oncology [facility] [address] [place] [address] [facility] Hem/Onc [address] [place] [address] 12/25/2023 11:20 AM EDT Office Visit [facility] [address] [facility] [place] [address] Joe Osborn MD [address] [place] [address] 12/27/2023 2:45 PM EDT Office Visit Hematology/Oncology [facility] [address] [facility] [place] [phone] Rafael West MD [address] [facility] [place] [address] 01/01/2024 2:15 PM EDT Office Visit Dermatology [facility] [address] [facility] [place] [address] Bayron Molina MD [address] [facility] [place] [address] 03/11/2024 3:20 PM EST Office Visit Pulmonary Medicine, [facility] 132 [facility] [place] [address] Isael Ang MD [address] [place] [address] 06/20/2024 9:20 AM EDT Office Visit [facility] [address] [facility] [place] [address] Joe Osborn MD [address] [place] [address] 09/25/2024 7:40 AM EDT Office Visit Pulmonary Medicine, [facility] [address] [place] [address] Isael [facility] [address] [facility] [address] Pending Results Name Type Priority Associated Diagnoses Date /Time TSH WITH FREE T4 IF INDICATED Lab Routine Malignant neoplasm of left kidney (HCC) 12/04/2023 8:21 AM EDT MYCODE SUBSEQUENT ADULT Lab Routine [employer] Other*[id number] 12/04/2023 8:21 AM EDT MYCODE SST1 Lab Routine [employer] Other*[id number] 12/04/2023 8:21 AM EDT MYCODE SST2 Lab Routine [employer] Other*[id number] 12/04/2023 8:21 AM EDT URINALYSIS WITH MICROSCOPIC EXAM Lab Routine Malignant neoplasm of left kidney (HCC) 12/04/2023 12:00 PM EDT Scheduled Procedures Name Priority Associated Diagnoses Date/Ti [...] this encounter Medical Devices Implanted Type Area Textiles Sales Representative Device Identifier Shelf Expiration Date Model / Serial / Lot Mesh 3dmax 3.1x5.3in Lft Med - [id number] Implanted:Qty: 1 on 12/18/2017 by Aashish Schwartz MD at OR [facility] Left: Groin CR BARD : DAVOL 09/30/2021 [id number] / / [id number] documented as of this encounter Procedures Procedure Name Priority Date/Time Associated Diagnosis Comments DIFFERENTIAL, AUTOMATED Routine 12/04/2023 8:21 AM EDT Malignant neoplasm of left kidney (HCC) BASIC METABOLIC PANEL Routine 12/04/2023 8:21 AM EDT Malignant neoplasm of left kidney (HCC) CBC Routine 12/04/2023 8:21 AM EDT Malignant neoplasm of left kidney (HCC) CBC Routine 12/04/2023 8:21 AM EDT Malignant neoplasm of left kidney (HCC) DIFFERENTIAL, TECHNOLOGIST REVIEW Routine 12/04/2023 8:21 AM EDT Malignant neoplasm of left kidney (HCC) documented in this encounter Results * (ABNORMAL) DIFFERENTIAL, TECHNOLOGIST REVIEW (12/04/2023 8:21 AM EDT) WBC 21.62(H) 4.00 - 10.80 K/uL 12/04/2023 10:30 AM EDT [facility] [place] [facility] Neutrophils % 86.0(H) 40.0 - 75.0 % 12/04/2023 10:30 AM EDT [facility] [place] [facility] Lymphocytes % 3.0(L) 18.0 - 42.0 % 12/04/2023 10:30 AM EDT [facility] [place] [facility] Monocytes % 11.0 1.0 - 11.0 % 12/04/2023 10:30 AM EDT [facility] [place] [facility] Absolute Neutrophils 18.59(H) 1.80 - 7.70 K/uL 12/04/2023 10:30 AM EDT [facility] [place] [facility] Absolute Lymphocytes 0.65(L) 1.00 - 4.80 K/uL 12/04/2023 10:30 AM EDT [facility] [place] [facility] Absolute Monocytes 2.38(H) 0.00 - 1.10 K/uL 12/04/2023 10:30 AM EDT [facility] [place] [facility] nRBCs 1(H) <=0 /100 WBCs 12/04/2023 10:30 AM EDT [facility] [place] [facility] Hypersegmented Neutrophils Present(A ) None Seen 12/04/2023 10:30 AM EDT [facility] [place] [facility] Blood Venous blood specimen / Unknown Venipuncture / Unknown 12/04/2023 8:21 AM EDT 12/04/2023 8:21 AM EDT Isael Ang MD LAB BLOOD ORDE KALI [facility] [place] [facility] [address] [facility] [place] [address] * DIFFERENTIAL, AUTOMATED (12/04/2023 8:21 AM EDT) Blood Venous blood specimen / Unknown Venipuncture / Unknown 12/04/2023 8:21 AM EDT 12/04/2023 8:21 AM EDT Isael Ang MD LAB BLOOD CATHLEEN BASS [facility] Organization Address City/State/ZIP Co de Phone Number [facility] [place] [facility] [address] [facility] [place] [address] * (ABNORMAL) CBC (12/04/2023 8:21 AM EDT) WBC 21.62(H) 4.00 - 10.80 K/uL 12/04/2023 10:30 AM EDT [facility] [place] [facility] RBC 3.77 4.50 - 5.25 M/uL 12/04/2023 10:30 AM EDT [facility] [place] [facility] HGB 9.5(L) 14.0 - 16.8 g/dL 12/04/2023 10:30 AM EDT [facility] [place] [facility] HCT 31.0(L) 40.0 - 48.4 % 12/04/2023 10:30 AM EDT [facility] [place] [facility] MCV 82.2 82.0 - 99.5 fL 12/04/2023 10:30 AM EDT [facility] [place] [facility] MCH 25.2 27.0 - 34.0 pg 12/04/2023 10:30 AM EDT [facility] [place] [facility] MCHC 30.6 32.0 - 36.0 g/dL 12/04/2023 10:30 AM EDT [facility] RDW 19.8 11.5 - 15.5 % 12/04/2023 10:30 AM EDT [facility] [place] [facility] PLT 616(H) 140 - 400 K/uL 12/04/2023 10:30 AM EDT [facility] MPV 9.3 6.6 - 11.1 fL 12/04/2023 10:30 AM EDT [facility] [place] [facility] Blood Venous blood specimen / Unknown Venipuncture / Unknown 12/04/2023 8:21 AM EDT 12/04/2023 8:21 AM EDT Isael Ang MD LAB BLOOD ORDE K[facility] Organization Address City/State/ZIP Co de Phone Number [facility] [place] [facility] [place] [address] * (ABNORMAL) BASIC METABOLIC PANEL (12/04/2023 8:21 AM EDT) BUN 28(H) 6 - 20 mg/dL 12/04/2023 11:03 AM EDT [facility] [place] [facility] CREATININE 1.0 0.6 - 1.2 mg/dL 12/04/2023 11:03 AM EDT [facility] [place] [facility] EGFR 79 >=60 mL/min 12/04/2023 11:03 AM EDT [facility] [place] [facility] Comment:eGFR is calculated b ased on the CKD-EPI 2020 equation. SODIUM 135 135 - 146 mmol/L 12/04/2023 11:03 AM EDT [facility] [place] [facility] POTASSIUM 4.7 3.5 - 5.1 mmol/L 12/04/2023 11:03 AM EDT [facility] [place] [facility] CHLORIDE 98 98 - 107 mmol/L 12/04/2023 11:03 AM EDT [facility] [place] [facility] CO2 23 22 - 32 mmol/L 12/04/2023 11:03 AM EDT [facility] [place] [facility] ANION GAP 14 7 - 15 mmol/L 12/04/2023 11:03 AM EDT [facility] [place] [facility] GLUCOSE 161(H) 70 - 120 mg/dL 12/04/2023 11:03 AM EDT [facility] [place] [facility] CALCIUM 8.5 8.4 - 10.2 mg/dL 12/04/2023 11:03 AM EDT [facility] [place] [facility] Blood Venous blood specimen / Unknown Venipuncture / Unknown 12/04/2023 8:21 AM EDT 12/04/2023 8:21 AM EDT Isael Ang MD LAB BLOOD [facility] [place] [facility] [place] [address] documented in this encounter Visit Diagnoses Diagnosis Malignant neoplasm of left kidney (HCC) [employer] Other*[id number] documented in this encounter Advance Directives * Full Code [...] Advance Directives occurred with: Patient Care Teams Instruction Librarian Relationship Specialty Start Date End Date Joe Osborn MD [address] [place] [address] PCP - General Family Medicine 08/26/15 documented as of this encounter
--- OUTSIDE RECORDS SUMMARY | 2023-12-07 00:13 | External Medical Summary ---
Author Name Unknown Address Unknown Organization K01:[facility] [place] [address] [place] [address] Laboratory Report Ordering Provider Test Date Status TEE STALLWORTH 12/04/2023 08:21:45 Final Observation Date Value Abnormality Reference (Units ) Status MYCODE SPECIMEN-SST 12/04/2023 08:21:45 Freezing of extracted DNA, whole blood and/or serum. Final Performing Location [facility] - [address] [place] [address]
--- OUTSIDE RECORDS SUMMARY | 2023-12-07 00:13 | External Medical Summary | Summary of Care ---
Author Name Unknown Organization [facility] Address [address] [place] [address] Phone [phone] Care Team Providers Care Electrician Office Name Role Phone Joe Obsorn MD Primary Care Provider + Reason for Visit * Reason Comments Follow Up Return pulm. Renal c ell carcinoma. Encounter Details Date Type Department Care Team (Late st Contact Info) Description 12/04/2023 7:40 AM EDT Office Visit Pulmonary Medicine, [facility] [address] [place] [address] Isael Ang MD [address], [place] [id number] Malignant neoplasm of left kidney (HCC)* Allergies Active Allergy Reactions Criticality Noted Date [...] 1.1 % Dental Cream (PreviDent 5000 Plus) [place] with a pea-size amount each evening before [...] poor prep BPH with elevated PSA Overview: 2017 WNL . Armond 2y. Had elev PSA [...] mRNA, LNP-s, No Pre serve, 2-Dose Series (PVPower) 12/09/2020,05/13/2020,04/15/2020 COVID-19, LNP-s, No Preserve , Ryder-sucrose, Ages 12+ (PVPower) 08/30/2021 COVID-19, MRNA-LNP, 23-24, P F, 30 MCG/0.3 mL, 12 YRS AND ABOVE, IM ([facility] 06/20/2023 Covid-19, Mrna, Lnp-s, Pf, B ivalent, 30 Mcg, IM, 12 yrs and above (PVPower) 12/31/2021 Pneumococcal Conjugate Vacc, 13 Valent (Prevnar) [...] on file documented as of this encounter Last Filed Vital Signs Vital Sign Reading Time Taken Comments Blood Pressure 140/76 12/04/2023 7:32 AM EDT Pulse 88 12/04/2023 7:32 AM EDT Temperature 36.2 C (97.1 F) 12/04/2023 7:32 AM ED T Respiratory Rate 16 12/04/2023 7:32 AM EDT Oxygen Saturation 92% 12/04/2023 7:33 AM EDT ra-amb Inhaled Oxygen Concentration - - Weight 73.5 kg (162 lb) 12/04/2023 7:32 AM EDT Height 170.2 cm (5' 7") 12/04/2023 7:32 AM EDT Body Mass Index 25.37 12/04/2023 7:32 AM EDT documented in this encounter Progress Notes * Isael Ang MD - 12/04/2023 7:40 AM EDT 12/04/2023 Pulmonary Medicine, [address] [place] [id number] Bayron Alston 1950 male 73 year old Attending Physician Documentation: 73-year-old male, retired professional services manager, lifetime nonsmoker, significant past medical history of metastatic left renal cell CA, evidence of osseous and pulmonary hilar/mediastinal Mets on PET scan,recent worsening of cough, shortness of breath with worsening bilateral reticulonodular infiltrates/ pneumonitis, currently off Keytruda and immunotherapy, started on high-dose steroid therapy, presenting for follow-up pulmonary medicine evaluation regarding persistent cough. Patient is receiving concurrent Oncology care between [facility] and [facility] in [place]. Scheduled for [facility] follow-up in December 2023 Since last evaluation patient describes worsening of his cough symptoms , continuing with corticosteroids therapy as prescribed by Oncology along with Tylenol No. 3 currently being managed by Oncology/PCP. Patient has been taking 2 tablets of Tylenol No. 3 every 6 hours for control of his cough symptoms. Prednisone at 30 mg to 60 mg daily based on symptoms status Denies heartburn, postnasal drainage, high-grade fever or purulent expectoration. Denies sick contacts. Episodic hoarseness of voice reported. Denies use of bronchodilator therapy. Patient has been continuing on prednisone as prescribed by Oncology service. Lower extremity swelling is reported. Physical examination significant for alert awake oriented male, class 2 throat, clear lung durand, regular cardiac rhythm, no evidence of volume overload and nonlateralizing Neuro examination. CT chest 11/2023 was compared with historical CT scan from few months ago. New bilateral micronodular infiltrates noted bilaterally consistent with pneumonitis . Prior PET scan showed bulky FDG avid lymphadenopathy in subcarinal and left hilar zones. No evidence of extrinsic bronchial compression noted. Cough and episodic hoarseness is considered multifactorial likely related to drug-induced pneumonitis, presence of bulky mediastinal metastatic disease process along with concern regarding immunotherapy drug related side effects. Symptomatic relief of cough is recommended instead of additional diagnostic workup. We agree with continuing maintenance acetaminophen /codeine 300/30 mg 1-2 tablets every 6 hours as needed for cough and kqnlfziy-iv-ogbpbp pain. Low-dose hydrochlorothiazide therapy was added at 12.5mg taken once daily as needed for lower extremity edema while patient is on high-dose prednisone therapy. Drug related side effects in management recommendations were discussed. Patient was advised to avoid driving or operating heavy machinery while taking codeine. Cumulative effect of codeine and Antihistamine cough syrups for somnolence was discussed. Patient will be followed up in 3 months to reassess cough symptoms status, and discuss further management plan. Meanwhile patient was advised to continue follow-up with PCP, Oncology Service and Oncology team at [facility]. 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 for Cough control Agree with high dose Prednisone trial per oncology HCTZ 12.5 QD PRN for edema added F/u 3 months Additional Radiologic surveillance per Oncology Follow Up: Return in about 3 months (around 03/04/2024) for Clinic Visit. 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 for Cough control Agree with high dose Prednisone trial per oncology HCTZ 12.5 QD PRN for edema added F/u 3 mon Follow Up: Return in about 3 months (around 03/04/2024) for Clinic Visit. | For: Clinic Visit | Check-out note: ths Additional Radiologic surveillance per Oncology Isael Ang MD Subjective CC: Chief Complaint Patient presents with Follow Up Return pulm. Renal cell carcinoma. HPI: Nursing Notes: Ping Tao LPN 12/04/23 0738 Signed Chief Complaint Patient presents with Follow Up Return pulm. Interm History/Respiratory Symptoms Cough: no Hemoptysis: no Sinus Symptoms: congestion/drainage Hospitalizations: no ED Trips: yes-11/30-renal cell carcinoma.CT lungs Triggers: breathing exertion Nocturnal: sleeps with head elevation CPAP/BiPAP/O2: no DME Supplier: no Flu Vaccine: 2022 Pneumovax: 2018 Prevnar: 2017 COVID 19: x6. MMRC Dyspnea Scale = 4 (I am too breathless to leave the house or I am breathless when dressing) Objective Filed Vitals: 12/04/23 0732 12/04/23 0733 BP: 140/76 Pulse: 88 Resp: 16 Temp: 36.2 C (97.1 F) TempSrc: Tympanic SpO2: 95% 92% Weight: 73.5 kg (162 lb) Height: 1.702 m (5' 7") Exam: Const: No signs of acute distress present. Head/Face: Normal on inspection. Eyes: Conjunctivae clear. Pupils equal round and reactive to light. ENMT: Oropharynx: No erythema, exudate or masses. Posterior pharynx is normal. Neck: Supple and symmetric. Resp: Respiratory examination as outlined above CV: Rate is regular. Rhythm is regular. No heart murmur appreciated. Extremities: No edema of the lower limbs bilaterally. Skin: Skin is warm and dry. Neuro: Coordination normal. No involuntary movement. Psych: Patient's attitude is cooperative. Mood is normal. Affect is normal. Tests reviewed with the patient: CT CHEST W CONTRAST Result Date: 11/28/2023 IMPRESSION: 1. Acute, diffuse pulmonary opacity favoring drug-related pneumonitis versus viral bronchiolitis. 2. Metastatic mediastinal and retroperitoneal lymphadenopathy not appreciably changed within the field of view. Hypoenhancing soft tissue in the included left kidney appears marginally increased; unclear if this is related to marginal disease progression or an inflammatory component in the context of immunotherapy. Attention on follow-up studies according to the clinical protocol for the primary neoplasm. XR CHEST 2 VIEWS Result Date: 11/27/2023 IMPRESSION Grossly clear lungs without lobar pneumonia. Note that metastatic disease chest was better assessed on the prior CT scan. VASC DUPLEX VENOUS LE BILAT Result Date: 11/17/2023 : Right lower extremity with no evidence of acute deep venous thrombosis. Left lower extremity withno evidence of acute deep venous thrombosis. XR ANKLE 3 OR MORE VIEWS Result Date: 11/17/2023 IMPRESSION No radiographic evidence of acute osseous injury. Small Achilles enthesophyte. CT ABD/PELVIS W IV CONTRAST - WO ORAL CONTRAST Result Date: 10/05/2023 Chest: 1. Unchanged pulmonary parenchymal nodules, compatible with metastases. 2. Minimal decrease in size of the left infrahilar adenopathy, with unchanged additional posterior mediastinal/retrocrural adenopathy. Abdomen and pelvis: 1. New subcentimeter hypodensity within hepatic segment VII, suspect for new metastasis. 2. Unchanged left renal primary tumor with associated areas of pelvicalycealdilatation. 3. Largely stable left para aortic adenopathy, with minimal decrease in size of one of the left para-aortic lymph nodes. Musculoskeletal: Unchanged multifocal osseous metastases. ACTIONABLE ITEMS/RECOMMENDATIONS*: None. *An Actionable Finding is a finding that may be unrelated to the original reason for imaging but potentially actionable, meaning further investigation may be necessary. The Actionable Findings Vigilance Unit (AFVU) assists medical providers with responding to additional radiologic findings that are unexpected and potentially actionable. NM BONE SCAN WHOLEBODY Result Date: 10/04/2023 Stable multifocal skeletal metastatic disease. ACTIONABLE ITEMS/RECOMMENDATIONS*: None. *An Actionable Finding is a finding that may be unrelated to the original reason for imaging but potentially actionable, meaning further investigation may be necessary. The Actionable Findings Vigilance Unit (AFVU) assists medical providers with responding to additional radiologic findings that are unexpected and potentially actionable. XR L SPINE AP AND LATERAL Result Date: 07/18/2023 IMPRESSION: No acute bony abnormalities. THIS DOCUMENT HAS BEEN ELECTRONICALLY SIGNED BY COREY CHASE MD XR HIP UNILAT 2-3 VIEWS INCLUDING AP PELVIS Result Date: 07/18/2023 IMPRESSION: No acute findings. THIS DOCUMENT HAS BEEN ELECTRONICALLY SIGNED BY VENKAT BRENNAN MD MRI BRAIN W WO CONTRAST Result Date: 06/28/2023 No acute intracranial abnormality. No intracranial metastasis. ACTIONABLE ITEMS/RECOMMENDATIONS*: None. *An Actionable Finding is a finding that may be unrelated to the original reason for imaging but potentially actionable, meaning further investigation may be necessary. The Actionable Findings Vigilance Unit (AFVU) assists medical providers with responding to additional radiologic findings thatare unexpected and potentially actionable. CT CHEST ABDOMEN PELVIS WITH/WITHOUT CONTRAST Result Date: 06/27/2023 Multiple subcentimeter bilateral lung nodules suspicious for metastatic disease, difficult to compare with 05/16/2023 PET/CT. Stable left renal primary infiltrative malignancy with associated areas of moderate hydronephrosis. Stable left infrahilar, posterior mediastinal, retrocrural, retroperitoneal adenopathy. Stable osseous metastases ACTIONABLE ITEMS/RECOMMENDATIONS*: None. *An Actionable Finding is a finding that may be unrelated to the original reason for imaging but potentially actionable, meaning further investigation may be necessary. The Actionable Findings Vigilance Unit (AFVU) assists medical providers with responding to additional radiologic findings that are unexpected and potentially actionable. NM BONE SCAN WHOLEBODY Result Date: 06/26/2023 Multifocal bone metastases, as described. Study may serve as a baseline bone scan study. ACTIONABLEITEMS/RECOMMENDATIONS*: None. *An Actionable Finding is a finding that may be unrelated to the original reason for imaging but potentially actionable, meaning further investigation may be necessary. The Actionable Findings Vigilance Unit (AFVU) assists medical providers with responding to additional radiologic findings that are unexpected and potentially actionable. I personally reviewed these image(s) along with the resident's/fellow's interpretations, certify that if a procedure was performedI was physically present, and agree with the final report. CT CHEST W CONTRAST Result Date: 06/13/2023 IMPRESSION Stable burden of metastatic disease in the chest without acute findings. XR CHEST 2 VIEWS Result Date: 06/09/2023 IMPRESSION Retrocardiac density, which may correspond to the left infrahilar metastasis demonstrated on the PET-CT. Available Radiologic data was reviewed by me in PACS. The images were shown to the patient and findings were discussed with the patient. HOME MEDICATIONS: Acetaminophen-Codeine 300-30 MG Oral Tablet Omeprazole 20 MG Oral Capsule Delayed Release (PriLOSEC) predniSONE 10 MG Oral Tablet (Deltasone) Lenvima (18 MG Daily Dose) 10 MG & 2 x 4 MG Oral Capsule Therapy Pack (Lenvatinib (18 MG Daily Dose)) Levothyroxine Sodium 25 MCG Oral Tablet (Levoxyl) buPROPion HCl ER (SR) 100 MG Oral Tablet Extended Release 12 Hour (Wellbutrin SR) Benzonatate 100 MG Oral Capsule (Tessalon Perles) Losartan Potassium 25 MG Oral Tablet (Cozaar) LORazepam 0.5 MG Oral Tablet (Ativan) Calcium Carbonate 1250 (500 Ca) MG Oral Tablet Chewable B-12 1000 MCG Oral Tablet Ammonium Lactate 12 % External Lotion (Amlactin Daily) Finasteride 5 MG Oral Tablet (Proscar) Simvastatin 10 MG Oral Tablet (Zocor) Sodium Fluoride 1.1 % Dental Cream (PreviDent 5000 Plus) Udderly Smooth Extra Care 20 External Cream Vitamin D3 50 MCG (2000 UT) Oral Capsule Aspirin 81 MG Tablet Ferrous Sulfate 325 (65 Fe) MG Oral Tablet (FeroSul) Clindamycin HCl 150 MG Oral Capsule (Cleocin) Chlorhexidine Gluconate 0.12 % Mouth/Throat Solution (Periogard) Clindamycin HCl 300 MG Oral Capsule Albuterol Sulfate HFA 108 (90 Base) MCG/ACT Inhalation Aerosol Solution Clobetasol Propionate 0.05 % External Ointment (Temovate) Ondansetron HCl 8 MG Oral Tablet Prochlorperazine Maleate 10 MG Oral Tablet (Compazine) Fish Oil 1000 MG Oral Capsule ROS: No reported history of Hemoptysis, Hematemesis, Melena No reported history of Dysuria, Hematuria, Flank Pain No reported history of chronic headache, seizures No reported history of Fall or trauma . No reported history of recent change in weight or appetite. Past Medical History: Diagnosis Date Blood stool BPH with elevated PSA COVID-19 virus infection 08/10/2022 Family history of colon cancer in mother Hyperlipidemia Left inguinal hernia 03/09/2016 Lyme disease 2015 treated MDD (major depressive disorder), recurrent episode, mild (HCC) Metastasis to liver (HCC) 10/24/2023 Past Surgical History: Procedure Laterality Date BONE BIOPSY, TROCAR/NEEDLE, DEEP Right 10/04/2022 BIOPSY BONE TROCAR OR NEEDLE DEEP [place] [facility] [place] MARROW ASPIRATION N/A 10/04/2022 BONE MARROW ASPIRATION performed by Noble Roy MD [place] [facility], [place]NOST[place] (RECTUM) 10/26/2015 adenomatous polyp, repeat 3 yrs/COLONOSCOPY FLEXIBLE PROXIMAL DIAGNOSTIC performed by Jacquelyn Sepulveda DO at [facility]OS[facility] COLONOSCOPY, DIAGNOSTIC (RECTUM) 02/19/2019 normal, repeat 5 yrs/COLONOSCOPY FLEXIBLE PROXIMAL DIAGNOSTIC performed by Jacquelyn Sepulveda DO at ENDOSCOPY [facility] DENTAL SURGERY PROCEDURE NEC LAPAROSCOPY; REPAIR INITIAL INGUINAL HERNIA Left 12/18/2017 LAPAROSCOPIC REPAIR INGUINAL HERNIA INITIAL performed by Aashish Schwartz MD at [facility] MISCELLANEOUS ORDER (HS ONLY) knee arthroscopy-cartilage PROSTATE U/S AND BIOPSY EDU 2002 benign REMOVAL OF PROSTATE (TURP) 08/24/2018 TRANSURETHRAL RESECTION PROSTATE ELECTROSURGICAL performed by Deanne Friedman MD at OR [facility] Social History Socioeconomic History Marital status: Occupational History 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 Mar 2018 Tobacco Use Smoking status: Never Smokeless tobacco: Never Vaping Use Vaping status: Never Used Substance and Sexual Activity Alcohol use: Not Currently Alcohol/week: 3.0 - 5.0 standard drinks of alcohol Types: 3 - 5 Mixed drink(s) containing 1.5 shots of alcohol per week Comment: update to Zero w/ch Drug use: No Sexual activity: Yes Partners: Female Comment: . step daughter. 3 grandkids in [place] Social History Narrative 03/26 addition on house. Likes--fish, golf Social Determinants of Health Financial Resource Strain: Low Risk (03/23/2023) [facility], [facility], [facility] Overall Financial Resource Strain (CARDIA) Difficulty of Paying Living Expenses: Not hard at all Food Insecurity: No Food Insecurity (03/23/2023) [facility], [facility], [facility] Hunger Vital Sign Worried About Running Out of Food in the Last Year: Never true Ran Out of Food in the Last Year: Never true Transportation Needs: Unknown (03/23/2023) [facility], [facility], [facility], [facility] PRAPARE - Transportation Lack of Transportation (Medical): No Social Connections Housing Stability: Unknown (03/23/2023) Received from [facility], [facility], [facility], [facility], [facility] Housing Stability Vital Sign Unable to Pay for Housing in the Last Year: No In the last 12 months, was there a time when you did not have a steady place to sleep or slept in ashelter (including now)?: No Family History Problem Relation Name Age of Onset Cancer Mother colon 80s-- Cancer Father 80s-smoked lung CA Prostate cancer Father 75 Peripheral vascular disease Sister near [place] Brain cancer Sister 43 Other (hepatitis c) Sister 40 [facility]. treated but active. Liver cancer Sister treated 30ya. Review of patient's allergies indicates: Allergen Reactions Penicillins Rash Age 19 had hepatitis a and got a rash. documented in this encounter Nursing Notes * Ping Tao LPN - 12/04/2023 7:33 AM EDT Chief Complaint Patient presents with Follow Up Return pulm. Interm History/Respiratory Symptoms Cough: no Hemoptysis: no Sinus Symptoms: congestion/drainage Hospitalizations: no ED Trips: yes-11/30-renal cell carcinoma.CT lungs Triggers: breathing exertion Nocturnal: sleeps with head elevation CPAP/BiPAP/O2: no DME Supplier: no Flu Vaccine: 2022 Pneumovax: 2018 Prevnar: 2017 COVID 19: x6. MMRC Dyspnea Scale = 4 (I am too breathless to leave the house or I am breathless when dressing) documented in this encounter Plan of Treatment Upcoming Encounters Date Type Department Care Team (Late st Contact Info) Description 12/12/2023 3:00 PM EDT Office Visit Hematology/Oncology [facility] [address] [place] [phone] Damaris Dickey CRNP [address] [place] [address] [place] [address] 12/13/2023 11:30 AM EDT Office Visit Urology, [facility] [address] [facility] [place] [address] Shar Brown MD [address] [place] [address] 12/19/2023 9:30 AM EDT Pharmacy Pharmacy Hematology Oncology [facility] [address] [place] [address] [facility] [address] [place] [address] 12/25/2023 11:20 AM EDT Office Visit Family Practice [facility] [address] [facility] [place] [address] [facility] MD [address] [facility] [address] 12/27/2023 2:45 PM EDT Office Visit Hematology/Oncology [facility] [address] [place] [address] Rafael West MD [address] [facility] [place] [address] 01/01/2024 2:15 PM EDT Office Visit Dermatology [facility] [address] [facility] [place] [address] Bayron Molina MD [address] [facility] [place], [place] [address] 03/11/2024 3:20 PM EST Office Visit Pulmonary Medicine, [facility] [address] [facility] [place] [address] Isael Ang MD [address] [place] [address] 06/20/2024 9:20 AM EDT Office Visit Family Practice [facility] [address] [place] [address] Joe Osborn MD [address] [place] [address] 09/25/2024 7:40 AM EDT Office Visit Pulmonary Medicine, [facility] [address] [place] [address] Isael Ang MD [address] [place] [address] Pending Results Name Type Priority Associated Diagnoses Date /Time CBC WITH WBC DIFFERENTIAL Lab Routine Malignant neoplasm of left kidney (HCC) 12/04/2023 8:21 AM EDT BASIC METABOLIC PANEL Lab Routine Malignant neoplasm of left kidney (HCC) 12/04/2023 8:21 AM EDT TSH WITH FREE T4 IF INDICATED Lab Routine Malignant neoplasm of left kidney (HCC) 12/04/2023 8:21 AM EDT Scheduled Orders Name Type Priority Associated Diagnoses Orde r Schedule CBC WITH WBC DIFFERENTIAL Lab Routine Malignant neoplasm of left kidney (HCC) Expected: 12/04/2023 (Approximate), Expires: 12/03/2024 BASIC METABOLIC PANEL Lab Routine Malignant neoplasm of left kidney (HCC) Expected: 12/04/2023, Expires: 12/03/2024 TSH WITH FREE T4 IF INDICATED Lab Routine Malignant neoplasm of left kidney (HCC) Expected: 12/04/2023, Expires: 12/03/2024 Scheduled Procedures Name Priority Associated Diagnoses Date/Ti [...] history exists Colorectal Cancer Screening 02/20/2024 GFR 11/27/2024 11/28/2023, 090 05/2023, 10/17/2023, Additional history exists TSH 11/27/2024 11/28/2023, 0 05/2023, 10/17/2023, Additional history exists Albumin/Creatinine Ratio 07/07/2025 07/07/2022 [...] this encounter Medical Devices Implanted Type Area Shrimp Trawler Device Identifier Shelf Expiration Date Model / Serial / Lot Mesh 3dmax 3.1x5.3in t Med - [id number] Implanted:Qty: 1 on 12/18/2017 by Aashish Schwartz MD at OR [facility] Left: Groin CR BARD : DAVOL 09/30/2021 [id number] / / [id number] documented as of this encounter Visit Diagnoses Diagnosis Malignant neoplasm of left kidney (HCC)- Primary documented in this encounter Advance Directives * [...] Advance Directives occurred with: Patient Care Teams Electrician Office Relationship Specialty Start Date End Date Joe Osborn MD [address] [place] [address] PCP - General Family Medicine 08/26/15 documented as of this encounter
--- OUTSIDE RECORDS SUMMARY | 2023-12-07 00:13 | External Medical Summary ---
Author Name Unknown Address Unknown Organization K0G:[facility] [place] 57-10 - [address] [place] [address] Laboratory Report Ordering Provider Test Date Status ARANZA ROSADO 12/04/2023 08:21:26 Final Observation Date Value Abnormality Reference (Units ) Status BUN 12/04/2023 08:21:26 28 Above high normal 6-20 (mg/dL) Final Creatinine 12/04/2023 08:21:26 1.0 0.6-1.2 (mg/dL) Final Glomerular filtration rate/1.73 sq M.predicted [Volume Rate/Area] in Serum, Plasma or Blood by Creatinine-based formula (CKD-EPI) 12/04/2023 08:21:26 79 >=60 (mL/min) Final eGFR is calculated based on the CKD-EPI 2020 equation. Sodium 12/04/2023 08:21:26 135 135-146 (m mol/L) Final Potassium 12/04/2023 08:21:26 4.7 3.5-5.1 (m mol/L) Final Cl 12/04/2023 08:21:26 98 98-107 (mm ol/L) Final CO2 12/04/2023 08:21:26 23 22-32 (mmo l/L) Final Anion gap 12/04/2023 08:21:26 14 7-15 (mmol /L) Final Glucose 12/04/2023 08:21:26 161 Above high normal 70 -120 (mg/dL) Final Calcium 12/04/2023 08:21:26 8.5 8.4-10.2 ( mg/dL) Final Performing Location [facility] [place] 57-1 0 - [address] [place] [address]
--- OUTSIDE RECORDS SUMMARY | 2023-12-07 00:13 | External Medical Summary ---
Author Name Unknown Address Unknown Organization K01:[facility] - [address] [place] [address] Laboratory Report Ordering Provider Test Date Status ARANZA ROSADO 12/04/2023 08:21:26 Final Observation Date Value Abnormality Reference (Units ) Status T4, Free 12/04/2023 08:21:26 1.2 0.9-1.7 (n g/dL) Final Performing Location [facility] - [address] [place] [address]
--- OUTSIDE RECORDS SUMMARY | 2023-12-07 00:13 | External Medical Summary | Summary of Care ---
Author Name Unknown Organization [facility] Address [address] [place] [address] Phone [phone] Care Team Providers Care Pattern Wheel Maker Name Role Phone Joe Osborn MD Primary Care Provider + Reason for Visit * Reason Onset Date Comments Advice 12/04/2023 Dr. West Test Results 12/04/2023 Encounter Details Date Type Department Care Team (Late st Contact Info) Description 12/04/2023 Telephone Hematology/Oncology [facility] [place] 200 [facility] [place] [phone] Rafael West MD 200 [place] [address] Advice (Dr. West ); Test Results Allergies [...] 1.1 % Dental Cream (PreviDent 5000 Plus) [place] with a pea-size amount each evening before [...] mRNA, LNP-s, No Pre serve, 2-Dose Series ([employer]) 12/09/2020,05/13/2020,04/15/2020 COVID-19, LNP-s, No Preserve , Ryder-sucrose, Ages 12+ ([employer]) 08/30/2021 COVID-19, MRNA-LNP, 23-24, P F, 30 MCG/0.3 mL, 12 YRS AND ABOVE, IM ([facility]) 06/20/2023 Covid-19, Mrna, Lnp-s, Pf, B ivalent, 30 Mcg, IM, 12 yrs and above ([employer]) 12/31/2021 Pneumococcal Conjugate Vacc, 13 Valent (Prevnar) [...] EDT Dr. West/Damaris- ISABEL, patient seen at [facility] ER 11/30 for SOB. PT 02 [...] contact Yulia at your earliest convenience at [phone]. She advised she will be unavailable from 3-4 pm today. Thank you. documented in this encounter Plan of Treatment Upcoming Encounters Date Type Department Care Team (Late st Contact Info) Description 12/12/2023 3:00 PM EDT Office Visit Hematology/Oncology [facility] [phone] Damaris Dickey CRNP [facility] [place] [address] 12/13/2023 11:30 AM EDT Office Visit Urology, [facility] 132 [facility] [place] [address] Shar Brown MD 27 [facility] [place] [address] 12/19/2023 9:30 AM EDT Pharmacy Pharmacy Hematology Oncology [facility] [address] [place] [address] [facility], [facility] Hem/Onc [address] [place] [address] 12/25/2023 11:20 AM EDT Office Visit Family Practice [facility] [address] [place] [address] Joe Osborn MD [address] [place] [address] 12/27/2023 2:45 PM EDT Office Visit Hematology/Oncology [facility] [address] [place] [phone] Rafael West MD 200 [facility] [place] [address] 01/01/2024 2:15 PM EDT Office Visit Dermatology [facility] 200 [facility] [place], [place] [address] Bayron Molina MD 200 [facility] [place], [place] [address] 03/11/2024 3:20 PM EST Office Visit Pulmonary Medicine, [facility] [address] [place] [address] Isael Ang MD [address] [place] [address] 06/20/2024 9:20 AM EDT Office Visit Family [facility] [address] [place] [address] Joe Osborn MD [address] [place] [address] 09/25/2024 7:40 AM EDT Office Visit Pulmonary Medicine, [facility] [address] [place] [address] Isael Ang MD [address] [place] [address] Scheduled Procedures Name Priority Associated Diagnoses Date/Ti [...] this encounter Medical Devices Implanted Type Area Box Maker Wood Device Identifier Shelf Expiration Date Model / Serial / Lot Mesh 3dmax 3.1x5.3in Lft Med - [id number] Implanted:Qty: 1 on 12/18/2017 by Aashish Schwartz MD at OR [facility] Left: Groin CR BARD : DAVOL 09/30/2021 [id number] / / [id number] documented as of this encounter Advance Directives [...] Advance Directives occurred with: Patient Care Teams Pattern Wheel Maker Relationship Specialty Start Date End Date Joe Osborn MD [address] [place] [address] PCP - General Family Medicine 08/26/15 documented as of this encounter
--- OUTSIDE RECORDS SUMMARY | 2023-12-07 00:13 | External Medical Summary ---
Author Name Unknown Address Unknown Organization K0G:[facility] [place] 57-10 - [address] [place] [address] Laboratory Report Ordering Provider Test Date Status IVETH HAQUE 12/04/2023 12:00:33 Final Observation Date Value Abnormality Reference (Units ) Status Color of Urine by Auto 12/04/2023 12:00:33 Yellow Light Yellow, Yellow, Dark Yellow Final Clarity, Urine 12/04/2023 12:00:33 Clear Clear Final Glucose [Mass/volume] in Urine by Automated test strip 12/04/2023 12:00:33 Negative Negative (mg/dL) Final Bilirubin.total [Presence] in Urine by Automated test strip 12/04/2023 12:00:33 Negative Negative Final Ketones [Mass/volume] in Urine by Automated test strip 12/04/2023 12:00:33 Negative Negative (mg/dL) Final Specific gravity, Urine 12/04/2023 12:00:33 1.015 1.003-1.030 Final Hemoglobin [Presence] in Urine by Automated test strip 12/04/2023 12:00:33 Negative Negative Final pH, Urine 12/04/2023 12:00:33 6.5 5.0-7.5 (Units) Final Protein [Mass/volume] in Urine by Automated test strip 12/04/2023 12:00:33 Negative Negative (mg/dL) Final Urobilinogen [Mass/volume] in Urine by Automated test strip 12/04/2023 12:00:33 0.2 0.2, 1.0 (mg/dL) Final Nitrite [Presence] in Urine by Automated test strip 12/04/2023 12:00:33 Negative Negative Final Leukocyte esterase [Presence] in Urine by Automated test strip 12/04/2023 12:00:33 Negative Negative Final RBC, Urine 12/04/2023 12:00:33 0-2 0-2 (/HPF) Final WBC, Urine 12/04/2023 12:00:33 0-2 0-2 (/HPF) Final Bacteria [#/area] in Urine sediment by Microscopy high power field 12/04/2023 12:00:33 0-25 0-25 (/HPF) Final Performing Location [facility] [place] 57-1 0 - [address] [facility] [address]
--- OUTSIDE RECORDS SUMMARY | 2023-12-07 00:13 | External Medical Summary | Summary of Care ---
Author Name Unknown Organization [facility] Address [address] [place] [address] Phone [phone] Care Team Providers Care Sign Erector Name Role Phone Joe Osborn MD Primary Care Provider + Reason for Visit * Reason Comments Outpatient Testing Encounter Details Date Type Department Care Team (Late st Contact Info) Description 12/04/2023 8:30 AM EDT Laboratory Laboratory, [facility] [address] [place] [phone] [facility] [address] [place] [address] Malignant neoplasm of left kidney (HCC); Attachments.[employer] Research Other*[id number] Allergies Active Allergy Reactions Criticality Noted Date [...] 1.1 % Dental Cream (PreviDent 5000 Plus) [place] with a pea-size amount each evening before [...] mRNA, LNP-s, No Pre serve, 2-Dose Series ([employer]) 12/09/2020,05/13/2020,04/15/2020 COVID-19, LNP-s, No Preserve , Ryder-sucrose, Ages 12+ ([employer]) 08/30/2021 COVID-19, MRNA-LNP, 23-24, P F, 30 MCG/0.3 mL, 12 YRS AND ABOVE, IM ([facility]) 06/20/2023 Covid-19, Mrna, Lnp-s, Pf, B ivalent, 30 Mcg, IM, 12 yrs and above ([employer]) 12/31/2021 Pneumococcal Conjugate Vacc, 13 Valent (Prevnar) [...] PM EDT Office Visit Hematology/Oncology [facility] [place] [address] [place] [phone] Damaris Dickey CRNP [address] [place] [address] 12/13/2023 11:30 AM EDT Office Visit Urology, [facility] 132 [facility] [place] [address] Shar Brown MD [address] [place] [address] 12/19/2023 9:30 AM EDT Pharmacy Pharmacy Hematology Oncology [facility] [address] [place] [address] [facility] Hem/Onc [address] [place] [address] 12/25/2023 11:20 AM EDT Office Visit [facility] 132 [facility] [place] [address] Joe Osborn MD [address] [place] [address] 12/27/2023 2:45 PM EDT Office Visit Hematology/Oncology [facility] 200 [facility] [place] [phone] Rafael West MD 200 [facility] [place] [address] 01/01/2024 2:15 PM EDT Office Visit Dermatology [facility] 200 [facility] [place] [address] Bayron Molina MD 200 [facility] [place] [address] 03/11/2024 3:20 PM EST Office Visit Pulmonary Medicine, [facility] 132 [facility] [place] [address] Isael Ang MD [address] [place] [address] 06/20/2024 9:20 AM EDT Office Visit [facility] 132 [facility] [place] [address] Joe Osborn MD [address] [place] [address] 09/25/2024 7:40 AM EDT Office Visit Pulmonary Medicine, [facility] [address] [place] [address] Isael Ang MD [address] [facility] [place] [address] Pending Results Name Type Priority Associated Diagnoses Date /Time CBC WITH WBC DIFFERENTIAL Lab Routine Malignant neoplasm of left kidney (HCC) 12/04/2023 8:21 AM EDT BASIC METABOLIC PANEL Lab Routine Malignant neoplasm of left kidney (HCC) 12/04/2023 8:21 AM EDT TSH WITH FREE T4 IF INDICATED Lab Routine Malignant neoplasm of left kidney (HCC) 12/04/2023 8:21 AM EDT CBC Lab Routine Malignant neoplasm of left kidney (HCC) 12/04/2023 8:21 AM EDT DIFFERENTIAL, AUTOMATED Lab Routine Malignant neoplasm of left kidney (HCC) 12/04/2023 8:21 AM EDT MYCODE SUBSEQUENT ADULT Lab Routine [employer] Other*[id number] 12/04/2023 8:21 AM EDT MYCODE SST1 Lab Routine [employer] Other*[id number] 12/04/2023 8:21 AM EDT MYCODE SST2 Lab Routine [employer] Other*[id number] 12/04/2023 8:21 AM EDT Scheduled Procedures Name Priority Associated Diagnoses [...] Colorectal Cancer Screening 02/20/2024 GFR 11/27/2024 11/28/2023, 0 05/2023, 10/17/2023, Additional history exists TSH 11/27/2024 [...] this encounter Medical Devices Implanted Type Area Cell Biology Scientist Device Identifier Shelf Expiration Date Model / Serial / Lot Mesh 3dmax 3.1x5.3in t Med - [id number] Implanted:Qty: 1 on 12/18/2017 by Aashish Schwartz MD at OR [facility] Left: Groin CR BARD : DAVOL 09/30/2021 [id number] / / [id number] documented as of this encounter Visit Diagnoses Diagnosis Malignant neoplasm of left kidney (HCC) [employer] Other*[id number] documented in this encounter Advance Directives * [...] Advance Directives occurred with: Patient Care Teams Sign Erector Relationship Specialty Start Date End Date Joe Osborn MD [address] [place] [address] PCP - General Family Medicine 08/26/15 documented as of this encounter
--- OUTSIDE RECORDS SUMMARY | 2023-12-07 00:13 | External Medical Summary ---
Author Name Unknown Address Unknown Organization K01:[facility] - [address] [place] [address] Laboratory Report Ordering Provider Test Date Status ARANZA ROSADO 12/04/2023 08:21:26 Final Observation Date Value Abnormality Reference (Units ) Status TSH 12/04/2023 08:21:26 4.56 Above high normal 0. 27-4.20 (uIU/mL) Final Performing Location LAB[facility]ORY C - [address] [place] [address]
--- OUTSIDE RECORDS SUMMARY | 2023-12-07 00:13 | External Medical Summary | Summary of Care ---
Author Name Unknown Organization [facility] Address [address] [place] [address] Phone [phone] Care Team Providers Care Customer Support Coordinator Name Role Phone Joe Osborn MD Primary Care Provider + Reason for Visit * Reason Onset Date Comments Advice 12/04/2023 Dr. West Test Results 12/04/2023 Encounter Details Date Type Department Care Team (Late st Contact Info) Description 12/04/2023 Telephone Hematology/Oncology [facility] [place] 200 [facility] [place] [phone] Rafael West MD 200 [place] [address] Advice (Dr. West ); Test Results Allergies [...] 1.1 % Dental Cream (PreviDent 5000 Plus) [place] with a pea-size amount each evening before [...] mRNA, LNP-s, No Pre serve, 2-Dose Series ([employer]) 12/09/2020,05/13/2020,04/15/2020 COVID-19, LNP-s, No Preserve , Ryder-sucrose, Ages 12+ ([employer]) 08/30/2021 COVID-19, MRNA-LNP, 23-24, P F, 30 MCG/0.3 mL, 12 YRS AND ABOVE, IM [facility] 06/20/2023 Covid-19, Mrna, Lnp-s, Pf, B ivalent, 30 Mcg, IM, 12 yrs and above ([employer]) 12/31/2021 Pneumococcal Conjugate Vacc, 13 Valent (Prevnar) [...] - 12/04/2023 2:45 PM EDT Called patients [place] Bender back. No answer, LMOM with return #. [...] contact Yulia at your earliest convenience at [phone]. She advised she will be unavailable from 3-4 pm today. Thank you. documented in this encounter Plan of Treatment Upcoming Encounters Date Type Department Care Team (Late st Contact Info) Description 12/12/2023 3:00 PM EDT Office Visit Hematology/Oncology [facility] 200 [place] [phone] Damaris Dickey CRNP [address] [place] [address] 12/13/2023 11:30 AM EDT Office Visit Urology, [facility] [address] [place] [address] Shar Brown MD [address] [place] [address] 12/19/2023 9:30 AM EDT Pharmacy Pharmacy Hematology Oncology [facility] [address] [place] [address] [facility] Hem[facility]Onc [address] [place] [address] 12/25/2023 11:20 AM EDT Office Visit Family Practice [facility] [address] [place] [address] Joe Osborn MD 132 [place] [address] 12/27/2023 2:45 PM EDT Office Visit Hematology/Oncology [place] [address] [facility] [place], [place] [address] Rafael West MD 200 [facility] [place] [address] 01/01/2024 2:15 PM EDT Office Visit Dermatology [facility] 200 [facility] [place] [address] Bayron Molina MD 200 [facility] [place] [address] 03/11/2024 3:20 PM EST Office Visit Pulmonary Medicine, [facility] 132 [facility] [place] [address] Isael Ang MD [address] [place] [address] 06/20/2024 9:20 AM EDT Office Visit Family Practice [facility] 132 [facility] [place] [address] Joe Osborn MD 132 [employer] [place] [address] 09/25/2024 7:40 AM EDT Office Visit Pulmonary Medicine, [facility] 132 [facility] [place] [address] Isael Ang MD [address] [place] [address] Scheduled Procedures Name Priority Associated Diagnoses Date/Ti [...] Tdap) 08/25/2025 08/26/2015 Lipid Panel 05/01/2028 05/01/2023, 07/2021, 10/05/2020, Additional history exists Pneumococcal Vaccine: [...] this encounter Medical Devices Implanted Type Area Tip Mender Device Identifier Shelf Expiration Date Model / Serial / Lot Mesh 3dmax 3.1x5.3in t Med - [id number] Implanted:Qty: 1 on 12/18/2017 by Aashish Schwartz MD at OR [facility] Left: Groin CR BARD : DAVOL 09/30/2021 [id number] / / [id number] documented as of this encounter Advance Directives [...] Advance Directives occurred with: Patient Care Teams Customer Support Coordinator Relationship Specialty Start Date End Date Joe Osborn MD [address] [place] [address] PCP - General Family Medicine 08/26/15 documented as of this encounter
--- OUTSIDE RECORDS SUMMARY | 2023-12-07 00:13 | External Medical Summary ---
Author Name Unknown Address Unknown Organization K0G:[facility] [place] 57-10 - [address] [place] [address] Laboratory Report Ordering Provider Test Date Status ARANZA ROSADO 12/04/2023 08:21:26 Final Observation Date Value Abnormality Reference (Units ) Status WBC, Total 12/04/2023 08:21:26 21.62 Above high normal 4 .00-10.80 (K/uL) Final RBC 12/04/2023 08:21:26 3.77 4.50-5.25 (M/uL) Final Hemoglobin 12/04/2023 08:21:26 9.5 Below low normal 14 .0-16.8 (g/dL) Final HCT 12/04/2023 08:21:26 31.0 Below low normal 40. 0-48.4 (%) Final MCV 12/04/2023 08:21:26 82.2 82.0-99.5 (fL) Final MCH 12/04/2023 08:21:26 25.2 27.0-34.0 (pg) Final MCHC 12/04/2023 08:21:26 30.6 32.0-36.0 (g/dL) Final RDW 12/04/2023 08:21:26 19.8 11.5-15.5 (%) Final Platelets 12/04/2023 08:21:26 616 Above high normal 14 0-400 (K/uL) Final MPV 12/04/2023 08:21:26 9.3 6.6-11.1 ( fL) Final Performing Location [facility] [place] 57-1 0 - [address] [place] [address]
--- OUTSIDE RECORDS SUMMARY | 2023-12-07 00:13 | External Medical Summary ---
Author Name Unknown Address Unknown Organization K0G:[facility] [place] 57-10 - [address] [place] [address] Laboratory Report Ordering Provider Test Date Status ARANZA ROSADO 12/04/2023 08:21:26 Final Observation Date Value Abnormality Reference (Units ) Status SYNC LEUKOCYTES IN BLOOD BY AUTOMATED COUNT 12/04/2023 08:21:26 21.62 Above high normal 4.00-10.80 (K/uL) Final Neutrophils/100 leukocytes in Blood by Manual count 12/04/2023 08:21:26 86.0 Above high normal 40.0-75.0 (%) Final Lymphocytes/100 leukocytes in Blood by Manual count 12/04/2023 08:21:26 3.0 Below low normal 18.0-42.0 (%) Final Monocytes/100 leukocytes in Blood by Manual count 12/04/2023 08:21:26 11.0 1.0-11.0 (%) Final Neutrophils [#/volume] in Blood by Manual count 12/04/2023 08:21:26 18.59 Above high normal 1.80-7.70 (K/uL) Final Lymphocytes [#/volume] in Blood by Manual count 12/04/2023 08:21:26 0.65 Below low normal 1.00-4.80 (K/uL) Final Monocytes [#/volume] in Blood by Manual count 12/04/2023 08:21:26 2.38 Above high normal 0.00-1.10 (K/uL) Final Nucleated erythrocytes/100 leukocytes [Ratio] in Blood by Automated count 12/04/2023 08:21:26 1 Above high normal <=0 (/100 WBCs) Final Neutrophils.hypersegm ented [Presence] in Blood by Light microscopy 12/04/2023 08:21:26 Present Abnormal None Seen Final Performing Location [facility] [place] 57-1 0 - [address] [place] [address]
--- OUTSIDE RECORDS SUMMARY | 2023-12-07 00:13 | External Medical Summary ---
Author Name Unknown Address Unknown Organization K01:[facility] - [address] [place] [address] Laboratory Report Ordering Provider Test Date Status TEE STALLWORTH 12/04/2023 08:21:45 Final Observation Date Value Abnormality Reference (Units ) Status MYCODE SPECIMEN-SST 12/04/2023 08:21:45 Freezing of extracted DNA, whole blood and/or serum. Final Performing Location LAB[facility]ATORY C - [address] [place] [address]
[2023-12-07] MEDS: LEVOTHYROXINE SODIUM 25 MCG TABLET PO SCH (04:46)
[2023-12-07 06:35] LABS: Hematocrit (blood only) 28.7 % (42.0-52.0); Hemoglobin 8.9 g/dl (14.0-18.0); Mean Corpuscular Hemoglobin 24.8 pg (25.0-34.0); Mean Corpuscular Volume 79.9 fL (80.0-100.0); Mean Platelet Volume 9.3 fL (9.4-12.4); Nucleated RBC # (auto) 0.02 K/uL (0.00-0.12); Nucleated RBC % (auto) 0.1 %; Platelet Count 550 K/uL (130-400); RDW Standard Deviation 54.4 fL (36.4-46.3); Red Blood Count 3.59 M/uL (4.70-6.10); White Blood Count 15.86 K/ul (4.8-10.8)
[2023-12-07 06:52] LABS: Albumin Level 2.8 gm/dl (3.4-5.0); BUN Creatinine Ratio 30.4 (10-20); Bilirubin Direct 0.1 mg/dl (0-0.2); Bilirubin,Total 0.4 mg/dl (0.2-1.0); Creatinine Clr Calc Pharmacy 56.2 ml/min; Potassium 4.6 mmol/L (3.5-5.1); Total Protein 6.4 gm/dl (6.0-8.3)
[2023-12-07 06:54] LABS: Basophils # (auto) 0.02 K/uL (0.00-0.20); Basophils % (auto) 0.1 %; Eosinophils # (auto) 0.02 K/uL (0.00-0.50); Eosinophils % (auto) 0.1 %; Immature Granulocytes # (auto) 0.18 K/uL (0.01-0.20); Immature Granulocytes % (auto) 1.1 %; Lymphocytes % (auto) 3.2 %; Monocytes # (auto) 0.22 K/uL (0.11-0.59); Monocytes % (auto) 1.4 %; Neutrophils # (auto) 14.92 K/uL (1.40-6.50); Neutrophils % (auto) 94.1 %
[2023-12-07] MEDS: LEVALBUTEROL 1.25 MG/3 ML NEB NEB PRN (07:50)
--- NOTE | 2023-12-07 08:30 | Hospitalist Progress Note ---
Date of Service December 07, 2023 Assessment & Plan (1) Acute respiratory failure with hypoxia: (2) Pneumonitis: (3) Acute pulmonary edema: (4) Metastatic renal cell carcinoma to bone: (5) Hypertension: Plan Pt is a 73-year-old male with history of metastatic renal cell carcinoma, with osseous and pulmonary hilar/mediastinal mets, hypertension, and other problems noted below presenting with shortness of breath and cough x 1 to 2 weeks. Acute respiratory failure with hypoxia, multifactorial Pulmonary edema Pneumonitis, secondary to immunotherapy Presence of mediastinal metastatic disease Pt presenting hypoxic Chest XRAY noting concern for pleural effusions CTA chest from 11/30 with diffuse ground glass opacities Echo with EF of 60 to 65%, grade 1 diastolic dysfunction, moderate LVH Lasix 40 mg IV daily Currently Keytruda on hold procalcitonin normal Pulmonology consulted, appreciate recs --switched to methylpred from po prednisone Continue Levaquin for possible bacterial pneumonia component given immunocompromised state Continue nebs 4 times daily, incentive spirometry, flutter valve Continue to monitor Chronic Anemia Hgb currently 8.9 AM anemia panel Continue to monitor Congestive Heart failure Chest XRAY concerning for cardiomegaly with CHF and pulmonary edema BNP elevated with downtrend today Continue with IV Lasix 40mg daily Consider cardiology consult in AM Metastatic renal cell carcinoma with osseous and pulmonary involvement Currently Keytruda on hold as per oncologist Dr. West Hypertension Patient reports blood pressure was on the lower side this morning Hold losartan Diet: Regular DVT prophylaxis: Lovenox 1 mg subcu daily CODE STATUS: Patient okay with CPR and defibrillation, no mechanical ventilation or intubation Dispo: PT/OT ordered for further recs Admission and Anticipated Discharge Date Admission Date: December 06, 2023 Subjective Patient was seen with his at bedside. States that he feels the same, having difficulty breathing Review of Systems Review of Systems: All systems reviewed & are unremarkable except as noted in Subjective Physical Exam Physical Exam: General: Alert, oriented Psych: Appropriate mood and affect Neuro: No gross deficits while in bed HEENT: NC/AT CV: RRR Resp: Breath sounds without wheeze bilaterally, no increased effort of breathing Abdomen: Soft, nontender Extremities: No edema in lower extremities bilaterally. Results & Data Results & Data Vital Signs (Past 12 Hours) Vital Signs Temp Pulse Pulse Resp BP BP Pulse Ox 12/07/23 07:52 94 H 22 85 L 12/07/23 07:39 36.7 C 81 18 146/78 H 90 12/07/23 07:22 76 12/07/23 03:41 36.9 C 82 16 122/66 94 12/06/23 23:41 36.8 C 76 18 130/73 93 12/06/23 22:01 12/06/23 21:52 79 12/06/23 20:53 79 17 98 O2 Del Method O2 Flow Rate 12/07/23 07:52 Nasal Cannula 2 12/07/23 07:39 Nasal Cannula 2.5 12/07/23 07:22 12/07/23 03:41 Nasal Cannula 2.5 12/06/23 23:41 Nasal Cannula 2.5 12/06/23 22:01 Nasal Cannula 2.5 12/06/23 21:52 12/06/23 20:53 Nasal Cannula 3 Diagnostic Findings Chest X-Ray 12/06/23 12:14 SINGLE VIEW CHEST CLINICAL HISTORY: Atypical chest pain. FINDINGS: An AP, portable, upright chest radiograph is compared to chest x-ray and chest CT dated 12/01/2023. The heart is enlarged. There is pulmonary vascular congestion with evidence of interstitial edema. Atelectasis is noted at the lung bases. Small pleural effusions are suspected. No pneumothorax is seen. The skel etal structures are osteopenic. The bony thorax is grossly intact. Degenerative change is noted in the spine. IMPRESSION: 1. Cardiomegaly with evidence of congestive failure and pulmonary edema. This has worsened as compared to 12/01/2023. Correlate clinically for evidence of a superimposed infectious/inflammatory pneumonitis. Radiographic follow-up to resolution is recommended. 2. Suspect small pleural effusions ACT 112: Negative or not required by law. Electronically signed by: Jim Griffin M.D. 12/06/2023 1:39 PM
--- NOTE | 2023-12-07 09:04 | Pulmonary Consultation ---
Date of Consultation December 07, 2023 Assessment & Plan (1) Acute respiratory failure with hypoxia: (2) Pneumonitis: (3) Metastatic renal cell carcinoma to bone: Plan CTA chest 12/01/2023 personally reviewed: Diffuse patchy groundglass opacities appreciated bilaterally upper and lower lobes Multiple pulmonary nodules appreciated bilaterally measuring up to 6 mm No significant mediastinal lymphadenopathy 2D echo 12/07/2023: EF 60-65%, grade 1 diastolic dysfunction, moderate concentric LVH, RV normal in size and function -- Acute hypoxic respiratory failure Likely secondary to pneumonitis from Keytruda It will be classified as grade 3- 4 pneumonitis and it is recommended to discontinue Keytruda Negative for SARS Cov-2, influenza A/B and RSV on 12/06/2023 Procalcitonin 0.21 BNP 138 --> 44 -- History of metastatic renal cell carcinoma Was getting Keytruda, currently on hold Plan: Follow BNP Continue with antibiotics with atypical coverage for 5 days Increase Solu-Medrol to 40 mg twice daily which will be approximately 1 Mg per KG Keep O2 saturation between 90-92% Please note the above document was generated using voice recognition software. It may contain grammatical, syntax or spelling errors.Any formal questions or concerns about the content, text or information contained within the body of this dictation should be directly addressed to the provider for clarification. History of Present Illness Attending Physician: Deanna Barnes MD History of Present Illness 73-year-old male presents to the hospital with complaints of shortness of breath and cough Past medical history: Metastatic renal cell carcinoma with pulmonary mets, hypertension Pulmonary consulted for abnormal chest CT At the time of examination patient was saturating 88-89% on 4 L nasal cannula, I went up to 5 L Patient says that he has been having issues with shortness of breath going on for approximately a week Denies any chest pain, shortness of breath is more worse on exertion. No wheezing, no chest tightness associated with it Occasional cough with clear phlegm. Denies any chest congestion. No dysuria, no diarrhea No recent travel history. No nausea vomiting No headache, no blurry vision No fever or chills at home Social history: Lifetime non-smoker neck Has a dog at home. No birds or poultry nearby Allergies Allergy/AdvReac Type Severity Reaction Status Date / Time Penicillins Allergy Intermediate Rash Verified 12/06/23 17:43 Home Medications Medication Instructions Recorded Confirmed Type aspirin 81 mg chewable tablet 81 mg PO DAILY 10/27/22 12/06/23 History bupropion HCl 100 mg tablet,12 hr 100 mg PO BID 10/27/22 12/06/23 History sustained-release (Wellbutrin SR) cholecalciferol (vitamin D3) 100 100 mcg PO DAILY 10/27/22 12/06/23 History mcg (4,000 unit) tablet ferrous sulfate 325 mg (65 mg 325 mg PO Q OTHER DAY 10/27/22 12/06/23 History iron) tablet,delayed release finasteride 5 mg tablet 5 mg PO DAILY 10/27/22 12/06/23 History losartan 25 mg tablet (Cozaar) 25 mg PO DAILY 10/27/22 12/06/23 History multivitamin 1 tab PO DAILY 10/27/22 12/06/23 History simvastatin 10 mg tablet 10 mg PO DAILY 10/27/22 12/06/23 History ondansetron HCl 8 mg tablet 8 mg PO Q6H PRN Nausea And Vomiting 11/09/22 12/06/23 History prochlorperazine maleate 10 mg 10 mg PO Q6H PRN Nausea And 11/09/22 12/06/23 History tablet (Compazine) Vomiting calcium carbonate (Calcium 500) 500 mg PO BID 05/23/23 12/06/23 History mecobalamin (vitamin B12) 1,000 1,000 mcg PO BID 05/23/23 12/06/23 History mcg chewable tablet acetaminophen 300 mg-codeine 30 mg 2 tab PO Q6H PRN Pain 12/06/23 12/06/23 History tablet albuterol sulfate 90 mcg/actuation 2 puff inhalation Q6H PRN Dyspnea 12/06/23 12/06/23 History aerosol inhaler hydrochlorothiazide 12.5 mg tablet 12.5 mg PO DAILY 12/06/23 12/06/23 History levothyroxine 25 mcg tablet 25 mcg PO DAILY 12/06/23 12/06/23 History prednisone 10 mg tablet 60 mg PO DAILY 12/06/23 12/06/23 History Patient History Medical History (Updated 12/06/23 @ 16:45 by Armaan Diego DO) MDD (major depressive disorder) Lyme disease Left inguinal hernia Hyperlipidemia BPH with elevated PSA Bloody stool COVID-19 Surgical History (Updated 10/27/22 @ 14:10 by Summer Escobedo RN) S/P TURP (transurethral resection of prostate) Hx of prostate biopsy H/O colonoscopy H/O hernia repair Family History (Updated 10/27/22 @ 13:23 by Summer Escobedo, RN) Mother Cancer colon and metastatic liver Father Cancer Lung Sister Cancer Lung Sister Cancer Kidney Social History (Updated 10/27/22 @ 13:25 by Summer Escobedo, BASSAM) Smoking Status: Never smoker Second Hand Exposure: Yes; Hx Alcohol Use: Yes Alcohol type: beer Alcohol Intake Frequency: 2-3 x/Week Hx Substance Use: No Preferred Language: Divehi Communication Ability: Effective Visual Impairment: No Limitations Hearing Ability: Normal Deliverer Pharmacy Required: No Beliefs That Will Affect Care: None Current Living Situation: Spouse current occupational status: retired current occupation: IT Feels Safe at Home: Yes Diet: regular Assistive Devices: None Review of Systems 2 Review of Systems: All systems reviewed & are unremarkable except as noted in HPI & below Physical Exam 2 Physical Exam: Constitutional: No acute distress HEENT: EOMI, PERRLA Respiratory system: Creased air entry bilaterally, no wheeze, no rhonchi, positive crackles appreciated bilateral lower lobes, questionable Velcro-like CVS: S1-S2 positive, no murmurs or gallops Abdomen: Soft, nontender, nondistended, positive bowel sounds x4 Extremities: +2 pulses bilaterally radialis/ dorsalis pedis, no cyanosis, +2 pitting edema bilateral lower extremity Neuro: Awake alert oriented x3 Psych: Normal mood and affect G/U: No Damico Skin: no rashes, warm and dry Lymphatic: no cervical or axillary lymphadenopathy Results & Data Results & Data Vital Signs (Past 12 Hours) Vital Signs Temp Pulse Pulse Resp BP BP Pulse Ox 12/07/23 07:52 94 H 22 85 L 12/07/23 07:39 36.7 C 81 18 146/78 H 90 12/07/23 07:22 76 12/07/23 03:41 36.9 C 82 16 122/66 94 12/06/23 23:41 36.8 C 76 18 130/73 93 12/06/23 22:01 12/06/23 21:52 79 O2 Del Method O2 Flow Rate 12/07/23 07:52 Nasal Cannula 2 12/07/23 07:39 Nasal Cannula 2.5 12/07/23 07:22 12/07/23 03:41 Nasal Cannula 2.5 12/06/23 23:41 Nasal Cannula 2.5 12/06/23 22:01 Nasal Cannula 2.5 12/06/23 21:52 Laboratory Results 12/07/23 06:00 12/07/23 06:00 PG Care Time/CCT Total # of Minutes Spent Total Time Spent with Patient: Total time spent is greater than 50% in coordination of care (as documented) at patient's floor/unit and/or counseling patient: Coding Level of Care Code 11318 INT INP/OBS CARE 3/75MIN Diagnoses Acute respiratory failure with hypoxia J96.01 Pneumonitis J98.4 Metastatic renal cell carcinoma to bone C79.51; C64.9
[2023-12-07] MEDS ORDERED: methylPREDNISolone 1000 MG/16 ML IV STA (09:21)
[2023-12-07] MEDS: FINASTERIDE 5 MG TAB PO SCH (09:33)
[2023-12-07] MEDS: ASPIRIN 81 MG ECTAB PO SCH (09:33)
[2023-12-07] MEDS: MULTIVITAMIN TAB PO SCH (09:33)
[2023-12-07] MEDS: SIMVASTATIN 10 MG TAB PO SCH (09:33)
[2023-12-07] MEDS: CHOLECALCIFEROL 25 MCG (1000 UNITS) TAB PO SCH (09:34)
[2023-12-07] MEDS: FUROSEMIDE 40 MG/4 ML VIAL IV SCH (09:35)
[2023-12-07] MEDS: methylPREDNISolone 60 MG in SYRINGE 0 ML IV STA (11:03)
[2023-12-07] MEDS: levoFLOXacin 750 MG TAB PO SCH (11:03)
[2023-12-07] MEDS: predniSONE 20 MG TAB PO SCH (11:17)
[2023-12-07] MEDS: DOCUSATE SODIUM 100 MG CAP PO SCH (20:41)
[2023-12-07] MEDS: methylPREDNISolone 40 MG in SYRINGE 0 ML IV SCH (20:42)
[2023-12-07] MEDS ORDERED: methylPREDNISolone 1000 MG/16 ML IV SCH (21:00)
[2023-12-08 06:40] LABS: Hematocrit (blood only) 27.5 % (42.0-52.0); Hemoglobin 8.6 g/dl (14.0-18.0); Mean Corpuscular Hemoglobin 24.6 pg (25.0-34.0); Mean Corpuscular Hgb Conc 31.3 g/dL (32.0-36.0); Mean Corpuscular Volume 78.8 fL (80.0-100.0); Mean Platelet Volume 9.4 fL (9.4-12.4); Platelet Count 480 K/uL (130-400); RDW Coefficient of Variation 18.7 % (11.5-14.5); RDW Standard Deviation 53.8 fL (36.4-46.3); Red Blood Count 3.49 M/uL (4.70-6.10); White Blood Count 15.71 K/ul (4.8-10.8)
[2023-12-08 07:02] LABS: Basophils # (auto) 0.01 K/uL (0.00-0.20); Basophils % (auto) 0.1 %; Immature Granulocytes # (auto) 0.22 K/uL (0.01-0.20); Immature Granulocytes % (auto) 1.4 %; Lymphocytes # (auto) 0.36 K/uL (1.20-3.40); Lymphocytes % (auto) 2.3 %; Monocytes # (auto) 0.22 K/uL (0.11-0.59); Monocytes % (auto) 1.4 %; Neutrophils % (auto) 94.8 %; Polychromasia 1+
[2023-12-08 07:07] LABS: Albumin Globulin Ratio 0.8 (0.9-2); Albumin Level 2.8 gm/dl (3.4-5.0); BUN Creatinine Ratio 36.2 (10-20); Bilirubin,Total 0.3 mg/dl (0.2-1.0); Calcium 9.3 mg/dl (8.6-10.3); Creatinine Clr Calc Pharmacy 50.9 ml/min; Globulin 3.5 gm/dl (2.5-4.0); Phosphorus 5.2 mg/dl (2.5-4.9); Potassium 4.7 mmol/L (3.5-5.1); Total Protein 6.3 gm/dl (6.0-8.3)
[2023-12-08 07:18] LABS: Folate (Folic Acid),Ser orPlas 18.07 ng/ml (>5.38)
[2023-12-08 07:25] LABS: Ferritin 335.1 ng/ml (8-388)
--- NOTE | 2023-12-08 07:43 | XRay Report ---
XR chest 1V portable HISTORY: 73 years-old Male f/u acute shortness of breath COMPARISON: December 06, 2023 TECHNIQUE: AP view the chest FINDINGS: Cardiac silhouette is enlarged. Perivascular congestion with reticular interstitial opacities. No pneumothorax or large pleural effus ion. Probable small pleural effusions. Mild linear left basilar atelectasis. Bones appear grossly int act. IMPRESSION: Cardiomegaly with persistent findings suggestive of interstitial pulmonary edema, stable to mildly worsened. ACT 112: Negative or not required by law. The above report was generated using voice recognition software. It may contain grammatical, syntax o r spelling errors. Electronically signed by: John Jiménez M.D. 12/08/2023 7:42 AM
--- NOTE | 2023-12-08 08:29 | Hospitalist Progress Note ---
Date of Service December 08, 2023 Assessment & Plan (1) Acute respiratory failure with hypoxia: (2) Pneumonitis: (3) Acute pulmonary edema: (4) Metastatic renal cell carcinoma to bone: (5) Hypertension: Plan Pt is a 73-year-old male with history of metastatic renal cell carcinoma, with osseous and pulmonary hilar/mediastinal mets, hypertension, and other problems noted below presenting with shortness of breath and cough x 1 to 2 weeks. Acute respiratory failure with hypoxia, multifactorial Pulmonary edema Pneumonitis, secondary to immunotherapy Presence of mediastinal metastatic disease Pt presenting hypoxic Chest XRAY noting concern for pleural effusions CTA chest from 11/30 with diffuse ground glass opacities Echo with EF of 60 to 65%, grade 1 diastolic dysfunction, moderate LVH Lasix 40 mg IV daily Currently Keytruda on hold procalcitonin normal Pulmonology consulted, appreciate recs --switched to methylpred from po prednisone - recommending discontinuation of Keytruda Continue Levaquin for possible bacterial pneumonia component given immunocompromised state Continue nebs 4 times daily, incentive spirometry, flutter valve Continue to monitor Chronic Anemia Hgb currently 8.9 AM anemia panel noting iron deficiency IV Venofer x1 dose 200mg Continue to monitor Congestive Heart failure Chest XRAY concerning for cardiomegaly with CHF and pulmonary edema BNP elevated with downtrend Received 2 doses of IV Lasix 40mg daily, transitioned to po lasix 20mg daily Cardiology consulted, appreciate recs. Recommended/ stated the following: -"Cardiac assessment has demonstrated normal LV systolic function on serial testing Exam not consistent pulmonary edema or congestive heart failure Trivial lower extremity edema secondary to hypoalbuminemia and acute illness Recommendations: Treat hypoxia likely require oxygen on hospital discharge Discontinue IV furosemide Add oral furosemide 20 mg/day over hydroch lorothiazide for management of mild pedal edema. Hyponatremia may improve off hydrochlorothiazide" Metastatic renal cell carcinoma with osseous and pulmonary involvement Currently Keytruda on hold as per oncologist Dr. West Hypertension Patient reports blood pressure was on the lower side Holding losartan Diet: Regular DVT prophylaxis: heparin SQ CODE STATUS: Patient okay with CPR and defibrillation, no mechanical ventilation or intubation Dispo: PT/OT ordered for further recs, home once medically stable Admission and Anticipated Discharge Date Admission Date: December 06, 2023 Subjective patient was seen with his at bedside. Expresses desire to go home. States that his shortness of breath is improving. States he is having bowel movements Review of Systems Review of Systems: All systems reviewed & are unremarkable except as noted in Subjective Physical Exam Physical Exam: General: Alert, oriented Psych: Appropriate mood and affect Neuro: No gross deficits while in bed HEENT: NC/AT CV: RRR Resp: Breath sounds without wheeze bilaterally, no increased effort of breathing Abdomen: Soft, nontender Extremities: No edema in lower extremities bilaterally. Results & Data Results & Data Vital Signs (Past 12 Hours) Vital Signs Temp Pulse Pulse Resp BP Pulse Ox O2 Del Method 12/08/23 07:57 36.4 C L 65 20 147/71 H 96 Nasal Cannula 12/08/23 07:28 61 15 95 Nasal Cannula 12/08/23 07:25 Nasal Cannula 12/08/23 04:00 36.5 C 59 L 18 110/58 L 97 Nasal Cannula 12/08/23 00:15 36.5 C 67 18 125/73 95 Room Air 12/07/23 23:35 Nasal Cannula 12/07/23 21:47 82 O2 Flow Rate 12/08/23 07:57 5 12/08/23 07:28 5 12/08/23 07:25 5 12/08/23 04:00 5 12/08/23 00:15 12/07/23 23:35 5 12/07/23 21:47
--- NOTE | 2023-12-08 09:12 | Pulmonology Progress Note ---
Date of Service December 08, 2023 Assessment & Plan (1) Acute respiratory failure with hypoxia: (2) Pneumonitis: (3) Metastatic renal cell carcinoma to bone: Plan CTA chest 12/01/2023 personally reviewed: Diffuse patchy groundglass opacities appreciated bilaterally upper and lower lobes Multiple pulmonary nodules appreciated bilaterally measuring up to 6 mm No significant mediastinal lymphadenopathy 2D echo 12/07/2023: EF 60-65%, grade 1 diastolic dysfunction, moderate concentric LVH, RV normal in size and function -- Acute hypoxic respiratory failure Likely secondary to pneumonitis from Keytruda It will be classified as grade 3- 4 pneumonitis and it is recommended to discontinue Keytruda Negative for SARS Cov-2, influenza A/B and RSV on 12/06/2023 Procalcitonin 0.21 BNP 138 --> 44 -- History of metastatic renal cell carcinoma Was getting Keytruda, currently on hold Plan: Chest x-ray from today does not show any significant change compared to before. Recommend strict ins and out Continue with diuretics Continue with antibiotics with atypical coverage for 5 days Continue with Solu-Medrol to 40 mg twice daily which will be approximately 1 Mg per KG Keep O2 saturation between 90-92% Case was discussed with primary team Please note the above document was generated using voice recognition software. It may contain grammatical, syntax or spelling errors.Any formal questions or concerns about the content, text or information contained within the body of this dictation should be directly addressed to the provider for clarification. Admission and Anticipated Discharge Date Admission Date: December 06, 2023 Subjective Patient seen and examined at bedside. No acute distress, no adverse events overnight He was saturating 92-93% on 4 L nasal cannula. Overall he stated that there is mild improvement in the way he felt Still complains of occasional cough. No hemoptysis No chest pain No nausea or vomiting, fair appetite Review of Systems 2 Review of Systems: All systems reviewed & are unremarkable except as noted in Subjective Physical Exam 2 Physical Exam: Constitutional: No acute distress HEENT: EOMI, PERRLA Respiratory system: Decreased air entry bilaterally, no wheeze, no rhonchi, positive crackles appreciated bilateral lower lobes, questionable Velcro-like CVS: S1-S2 positive, no murmurs or gallops Abdomen: Soft, nontender, nondistended, positive bowel sounds x4 Extremities: +2 pulses bilaterally radialis/ dorsalis pedis, no cyanosis, +2 pitting edema bilateral lower extremity Neuro: Awake alert oriented x3 Psych: Normal mood and affect G/U: No Damico Skin: no rashes, warm and dry Lymphatic: no cervical or axillary lymphadenopathy Results & Data Results & Data Vital Signs (Past 12 Hours) Vital Signs Temp Pulse Pulse Resp BP Pulse Ox O2 Del Method 12/08/23 08:52 55 L 12/08/23 07:57 36.4 C L 65 20 147/71 H 96 Nasal Cannula 12/08/23 07:28 61 15 95 Nasal Cannula 12/08/23 07:25 Nasal Cannula 12/08/23 04:00 36.5 C 59 L 18 110/58 L 97 Nasal Cannula 12/08/23 00:15 36.5 C 67 18 125/73 95 Room Air 12/07/23 23:35 Nasal Cannula 12/07/23 21:47 82 O2 Flow Rate 12/08/23 08:52 12/08/23 07:57 5 12/08/23 07:28 5 12/08/23 07:25 5 12/08/23 04:00 5 12/08/23 00:15 12/07/23 23:35 5 12/07/23 21:47 Laboratory Results 12/08/23 06:12 12/08/23 06:12 PG Care Time/CCT Total # of Minutes Spent Total Time Spent with Patient: Total time spent is greater than 50% in coordination of care (as documented) at patient's floor/unit and/or counseling patient: Coding Level of Care Code 75896 SUB INP/OBS CARE 3/50MIN Diagnoses Acute respiratory failure with hypoxia J96.01 Pneumonitis J98.4 Metastatic renal cell carcinoma to bone C79.51; C64.9
[2023-12-08] MEDS: IRON SUCROSE 200 MG in 0.9 % SODIUM CHLORIDE 100 ML IV ONE (09:21)
--- NOTE | 2023-12-08 12:02 | Cardiology Consultation ---
Date of Consultation December 08, 2023 Assessment & Plan (1) Acute respiratory failure with hypoxia: (2) Pneumonitis: (3) Metastatic renal cell carcinoma to bone: Plan 73-year-old male undergoing chemotherapy for metastatic renal cell carcinoma with worsening cough and hypoxia. CT scans demonstrated reticular nodular infiltrate/pneumonitis. Keytruda discontinued and patient being treated with corticosteroid Cardiac assessment has demonstrated normal LV systolic function on serial testing Exam not consistent pulmonary edema or congestive heart failure Trivial lower extremity edema secondary to hypoalbuminemia and acute illness Recommendations: Treat hypoxia likely require oxygen on hospital discharge Discontinue IV furosemide Add oral furosemide 20 mg/day over hydrochlorothiazide for management of mild pedal edema. Hyponatremia may improve off hydrochlorothiazide No other further recommendations. Contact with question History of Present Illness Reason for Consultation: Respiratory distress Requesting Physician: Deanna Barnes MD Attending Physician: Deanna Barnes MD History of Present Illness Patient is a complex 73-year-old male whose ongoing concerns including 1. Renal cell carcinoma with advanced metastatic disease to bone 2. 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 Diagnosis previously established of acute drug- induced pneumonitis Hypoxic on presentation and has responded to oxygen supplementation Now on IV corticosteroid No prior history of cardiac disease, myocardial infarction, angina. Normal structural heart by echocardiogram serially Currently without fevers or chills no dyspnea oxygen Trace ankle edema at times Appetite fair weight stable recently Allergies Allergy/AdvReac Type Severity Reaction Status Date / Time Penicillins Allergy Intermediate Rash Verified 12/06/23 17:43 Home Medications Medication Instructions Recorded Confirmed Type aspirin 81 mg chewable tablet 81 mg PO DAILY 10/27/22 12/06/23 History bupropion HCl 100 mg tablet,12 hr 100 mg PO BID 10/27/22 12/06/23 History sustained-release (Wellbutrin SR) cholecalciferol (vitamin D3) 100 100 mcg PO DAILY 10/27/22 12/06/23 History mcg (4,000 unit) tablet ferrous sulfate 325 mg (65 mg 325 mg PO Q OTHER DAY 10/27/22 12/06/23 History iron) tablet,delayed release finasteride 5 mg tablet 5 mg PO DAILY 10/27/22 12/06/23 History losartan 25 mg tablet (Cozaar) 25 mg PO DAILY 10/27/22 12/06/23 History multivitamin 1 tab PO DAILY 10/27/22 12/06/23 History simvastatin 10 mg tablet 10 mg PO DAILY 10/27/22 12/06/23 History ondansetron HCl 8 mg tablet 8 mg PO Q6H PRN Nausea And Vomiting 11/09/22 12/06/23 History prochlorperazine maleate 10 mg 10 mg PO Q6H PRN Nausea And 11/09/22 12/06/23 History tablet (Compazine) Vomiting calcium carbonate (Calcium 500) 500 mg PO BID 05/23/23 12/06/23 History mecobalamin (vitamin B12) 1,000 1,000 mcg PO BID 05/23/23 12/06/23 History mcg chewable tablet acetaminophen 300 mg-codeine 30 mg 2 tab PO Q6H PRN Pain 12/06/23 12/06/23 History tablet albuterol sulfate 90 mcg/actuation 2 puff inhalation Q6H PRN Dyspnea 12/06/23 12/06/23 History aerosol inhaler hydrochlorothiazide 12.5 mg tablet 12.5 mg PO DAILY 12/06/23 12/06/23 History levothyroxine 25 mcg tablet 25 mcg PO DAILY 12/06/23 12/06/23 History prednisone 10 mg tablet 60 mg PO DAILY 12/06/23 12/06/23 History Patient History Medical History MDD (major depressive disorder) Lyme disease Left inguinal hernia Hyperlipidemia BPH with elevated PSA Bloody stool COVID-19 Surgical History (Updated 10/27/22 @ 14:10 by Summer Escobedo RN) S/P TURP (transurethral resection of prostate) Hx of prostate biopsy H/O colonoscopy H/O hernia repair Family History (Updated 10/27/22 @ 13:23 by Summer Escobedo RN) Mother Cancer colon and metastatic liver Father Cancer Lung Sister Cancer Lung Sister Cancer Kidney Social History (Updated 10/27/22 @ 13:25 by Summer Escobedo RN) Smoking Status: Never smoker Second Hand Exposure: Yes; Hx Alcohol Use: Yes Alcohol type: beer Alcohol Intake Frequency: 2-3 x/Week Hx Substance Use: No Preferred Language: [place] Communication Ability: Effective Visual Impairment: No Limitations Hearing Ability: Normal Supervisor [employer] Required: No Beliefs That Will Affect Care: None Current Living Situation: Spouse current occupational status: retired current occupation: IT Feels Safe at Home: Yes Diet: regular Assistive Devices: None Review of Systems Review of Systems: All systems reviewed & are unremarkable except as noted in HPI & below Physical Exam Constitutional: + ill appearing; no acute distress Eyes: PERRL, conjunctivae normal, anicteric sclerae ENMT: external ear and nose normal, oropharynx normal Neck: trachea midline, no thyromegaly Respiratory: no labored breathing Auscultation: + crackles (Fine basilar crackles present) Cardiovascular: Rate/Rhythm: regular rate and regular rhythm Heart Sounds: normal S1 and normal S2; no murmur Vessels: no JVD Extremities: + edema (Trace) Gastrointestinal (Abdomen): normal bowel sounds, soft, nontender, no hepatosplenomegaly Musculoskeletal: no cyanosis or clubbing, extremities motor strength 5/5 Results & Data Vital Signs (Past 12 Hours) Vital Signs Temp Pulse Pulse Resp BP Pulse Ox Pulse Ox 12/08/23 11:44 36.5 C 87 20 124/74 93 12/08/23 10:31 95 12/08/23 08:52 55 L 12/08/23 07:57 36.4 C L 65 20 147/71 H 96 12/08/23 07:28 61 15 95 12/08/23 07:25 12/08/23 04:00 36.5 C 59 L 18 110/58 L 97 12/08/23 00:15 36.5 C 67 18 125/73 95 Pulse Ox O2 Del Method O2 Flow Rate O2 Flow Rate O2 Flow Rate 12/08/23 11:44 Nasal Cannula 4 12/08/23 10:31 90 4 4 12/08/23 08:52 12/08/23 07:57 Nasal Cannula 5 12/08/23 07:28 Nasal Cannula 5 12/08/23 07:25 Nasal Cannula 5 12/08/23 04:00 Nasal Cannula 5 12/08/23 00:15 Room Air Laboratory Results Laboratory Results - last 24 hr 12/08/23 06:12 WBC 15.71 H RBC 3.49 L Hgb 8.6 L Hct 27.5 L MCV 78.8 L MCH 24.6 L MCHC 31.3 L RDW Std Deviation 53.8 H RDW Coeff of Gumaro 18.7 H Plt Count 480 H MPV 9.4 Immature Gran % (Auto) 1.4 Neut % (Auto) 94.8 Lymph % (Auto) 2.3 Wright % (Auto) 1.4 Eos % (Auto) 0.0 Baso % (Auto) 0.1 Neut # (Auto) 14.90 H Lymph # (Auto) 0.36 L Wright # (Auto) 0.22 Eos # (Auto) 0.00 Baso # (Auto) 0.01 Immature Gran # (Auto) 0.22 H Polychromasia 1+ Sodium 133 L Potassium 4.7 Chloride 95 L Carbon Dioxide 27 Anion Gap 11 BUN 46 H Creatinine 1.27 Est Cr Clr Drug Dosing 50.9 eGFR 60.03 BUN/Creatinine Ratio 36.2 H Glucose 202 H Calcium 9.3 Phosphorus 5.2 H Magnesium 2.0 Iron 30 L TIBC 192 L Unsaturated IBC 162 Transferrin % Sat 16 L Ferritin 335.1 Total Bilirubin 0.3 AST 18 ALT 49 Alkaline Phosphatase 93 Total Protein 6.3 Albumin 2.8 L Globulin 3.5 Albumin/Globulin Ratio 0.8 L Vitamin B12 1429 H Folate 18.07 Diagnostic Findings Echocardiogram 05/17/2023 The left ventricular cavity size is normal. The LV wall thickness is normal. The left ventricular wall motion is normal. The qualitative LV ejection fraction is 60-64% (normal). The global longitudinal strain (GLS) is - 18.7 %. Normal left ventricular systolic function is suggested if GLS is -14% to -30%. The left ventricular diastolic function is mildly abnormal (grade I). Mild mitral regurgitation is present. Mild tricuspid regurgitation is present. There is no evidence of pulmonary hypertension. Compared to prior study of January 17, 2023, there is no significant change. Echocardiogram 12/07/2023 There is mild to moderate increase in left wall thickness with normal wall motion and grade 1 diastolic dysfunction No significant valvular No pulmonary hypertension No change from prior study EKG on presentation Sinus rhythm with voltage criteria for left ventricular hypertrophy at 94 bpm no Q waves or ST segment abnormality
[2023-12-08] MEDS: HYDROcodone/HOMATROPINE SYRUP 5MG/1.5MG 5ML UDP PO PRN (14:56)
[2023-12-08] MEDS: HEPARIN SOD 5,000 UNIT/0.5 ML VIAL SQ SCH (21:05)
[2023-12-09 06:00] LABS: Hematocrit (blood only) 28.4 % (42.0-52.0); Hemoglobin 8.8 g/dl (14.0-18.0); Mean Corpuscular Hemoglobin 24.6 pg (25.0-34.0); Mean Corpuscular Volume 79.6 fL (80.0-100.0); Mean Platelet Volume 9.5 fL (9.4-12.4); Platelet Count 527 K/uL (130-400); RDW Coefficient of Variation 18.8 % (11.5-14.5); RDW Standard Deviation 54.4 fL (36.4-46.3); Red Blood Count 3.57 M/uL (4.70-6.10); White Blood Count 17.02 K/ul (4.8-10.8)
[2023-12-09 06:18] LABS: Albumin Globulin Ratio 0.8 (0.9-2); Albumin Level 2.7 gm/dl (3.4-5.0); Bilirubin,Total 0.3 mg/dl (0.2-1.0); Calcium 9.6 mg/dl (8.6-10.3); Creatinine Clr Calc Pharmacy 54.7 ml/min; Globulin 3.5 gm/dl (2.5-4.0); Magnesium 1.9 mg/dl (1.7-2.4); Phosphorus 4.9 mg/dl (2.5-4.9); Potassium 4.9 mmol/L (3.5-5.1); Total Protein 6.2 gm/dl (6.0-8.3)
[2023-12-09 06:25] LABS: Basophils # (auto) 0.01 K/uL (0.00-0.20); Basophils % (auto) 0.1 %; Immature Granulocytes # (auto) 0.14 K/uL (0.01-0.20); Immature Granulocytes % (auto) 0.8 %; Lymphocytes # (auto) 0.31 K/uL (1.20-3.40); Lymphocytes % (auto) 1.8 %; Monocytes # (auto) 0.18 K/uL (0.11-0.59); Monocytes % (auto) 1.1 %; Neutrophils # (auto) 16.38 K/uL (1.40-6.50); Neutrophils % (auto) 96.2 %; Polychromasia 1+
[2023-12-09] MEDS: FUROSEMIDE 20 MG TAB PO SCH (09:08)
--- NOTE | 2023-12-09 11:17 | Pulmonology Progress Note ---
Date of Service December 09, 2023 Assessment & Plan (1) Acute respiratory failure with hypoxia: (2) Pneumonitis: (3) Metastatic renal cell carcinoma to bone: Plan CTA chest 12/01/2023 personally reviewed: Diffuse patchy groundglass opacities appreciated bilaterally upper and lower lobes Multiple pulmonary nodules appreciated bilaterally measuring up to 6 mm No significant mediastinal lymphadenopathy 2D echo 12/07/2023: EF 60-65%, grade 1 diastolic dysfunction, moderate concentric LVH, RV normal in size and function -- Acute hypoxic respiratory failure Likely secondary to pneumonitis from Keytruda It will be classified as grade 3- 4 pneumonitis and it is recommended to discontinue Keytruda Negative for SARS Cov-2, influenza A/B and RSV on 12/06/2023 Procalcitonin 0.21 BNP 138 --> 44 -- History of metastatic renal cell carcinoma Was getting Keytruda, currently on hold Plan: Continue with diuretics Continue with antibiotics with atypical coverage for 5 days Continue with Solu-Medrol to 40 mg twice daily which will be approximately 1 Mg per KG Keep O2 saturation between 90-92% Case was discussed with primary team and RN at bedside Please note the above document was generated using voice recognition software. It may contain grammatical, syntax or spelling errors.Any formal questions or concerns about the content, text or information contained within the body of this dictation should be directly addressed to the provider for clarification. Admission and Anticipated Discharge Date Admission Date: December 06, 2023 Subjective Patient seen and examined at bedside. No acute distress, no adverse events overnight He was saturating 95-96% on 4 L nasal cannula, I went down to 2 L. He was still saturating 92% on it He did say that he had a coughing fit overnight. He takes codeine pills which helps. When he does bring up phlegm is mostly clear. Denies any hemoptysis Overall he is feeling better since he came to the hospital but still not at his baseline Has been diuresing well Fair appetite, no nausea or vomiting Review of Systems 2 Review of Systems: All systems reviewed & are unremarkable except as noted in Subjective Physical Exam 2 Physical Exam: Constitutional: No acute distress HEENT: EOMI, PERRLA Respiratory system: Decreased air entry bilaterally, no wheeze, no rhonchi, positive crackles appreciated bilateral lower lobes, questionable Velcro-like CVS: S1-S2 positive, no murmurs or gallops Abdomen: Soft, nontender, nondistended, positive bowel sounds x4 Extremities: +2 pulses bilaterally radialis/ dorsalis pedis, no cyanosis, +1 pitting edema bilateral lower extremity Neuro: Awake alert oriented x3 Psych: Normal mood and affect G/U: No Damico Skin: no rashes, warm and dry Lymphatic: no cervical or axillary lymphadenopathy Results & Data Results & Data Vital Signs (Past 12 Hours) Vital Signs Temp Pulse Pulse Resp BP BP Pulse Ox 12/09/23 08:29 71 12/09/23 08:01 36.7 C 68 16 118/65 93 12/09/23 07:33 72 18 90 12/09/23 07:12 12/09/23 02:51 36.5 C 74 20 144/63 H 94 12/09/23 01:16 72 17 94 12/09/23 00:33 O2 Del Method O2 Flow Rate 12/09/23 08:29 12/09/23 08:01 Nasal Cannula 4 12/09/23 07:33 Nasal Cannula 3 12/09/23 07:12 Nasal Cannula 4 12/09/23 02:51 Nasal Cannula 3 12/09/23 01:16 Nasal Cannula 4 12/09/23 00:33 Nasal Cannula 4 Laboratory Results 12/09/23 05:33 12/09/23 05:33 PG Care Time/CCT Total # of Minutes Spent Total Time Spent with Patient: Total time spent is greater than 50% in coordination of care (as documented) at patient's floor/unit and/or counseling patient: Coding Level of Care Code 37706 SUB INP/OBS CARE 2/35MIN Diagnoses Acute respiratory failure with hypoxia J96.01 Pneumonitis J98.4 Metastatic renal cell carcinoma to bone C79.51; C64.9
--- NOTE | 2023-12-09 11:49 | Hospitalist Progress Note ---
Date of Service December 09, 2023 Assessment & Plan (1) Acute respiratory failure with hypoxia: (2) Pneumonitis: (3) Acute pulmonary edema: (4) Metastatic renal cell carcinoma to bone: (5) Hypertension: Plan Pt is a 73-year-old male with history of metastatic renal cell carcinoma, with osseous and pulmonary hilar/mediastinal mets, hypertension, and other problems noted below presenting with shortness of breath and cough x 1 to 2 weeks. Acute respiratory failure with hypoxia, multifactorial Pulmonary edema Pneumonitis, secondary to immunotherapy Presence of mediastinal metastatic disease Pt presenting hypoxic Chest XRAY noting concern for pleural effusions CTA chest from 11/30 with diffuse ground glass opacities Echo with EF of 60 to 65%, grade 1 diastolic dysfunction, moderate LVH Lasix 40 mg IV daily Currently Keytruda on hold procalcitonin normal Pulmonology consulted, appreciate recs --switched to IV methylpred from po prednisone - recommending discontinuation of Keytruda -12/09/23: "Continue with diuretics. Continue with antibiotics with atypical coverage for 5 days. Continue with Solu-Medrol to 40 mg twice daily which will be approximately 1 Mg per KG. Keep O2 saturation between 90-92%" Continue Levaquin for possible bacterial pneumonia component given immunocompromised state Continue nebs 4 times daily, incentive spirometry, flutter valve Continue to monitor Chronic Anemia Hgb currently 8.9 AM anemia panel noting iron deficiency IV Venofer x1 dose 200mg Continue to monitor Congestive Heart failure Chest XRAY concerning for cardiomegaly with CHF and pulmonary edema BNP elevated with downtrend Received 2 doses of IV Lasix 40mg daily, transitioned to po lasix 20mg daily Cardiology consulted, appreciate recs. Recommended/ stated the following: -"Cardiac assessment has demonstrated normal LV systolic function on serial testing Exam not consistent pulmonary edema or congestive heart failure Trivial lower extremity edema secondary to hypoalbuminemia and acute illness Recommendations: Treat hypoxia likely require oxygen on hospital discharge Discontinue IV furosemide Add oral furosemide 20 mg/day over hydrochlorothiazide for management of mild pedal edema. Hyponatremia may improve off hydrochlorothiazide" p.o. Lasix 20 mg daily added Metastatic renal cell carcinoma with osseous and pulmonary involvement Currently Keytruda on hold as per oncologist Dr. West Hypertension Patient reports blood pressure was on the lower side Holding losartan Diet: Regular DVT prophylaxis: heparin SQ CODE STATUS: Patient okay with CPR and defibrillation, no mechanical ventilation or intubation Dispo: PT/OT ordered for further recs, home once medically stable Admission and Anticipated Discharge Date Admission Date: December 06, 2023 Subjective patient states he did not have a good night overnight. States he was coughing quite a bit and the Hycodan did not really help. States he went back to his Tylenol with codeine which seemed to help Agreeable to staying for further evaluation Review of Systems Review of Systems: All systems reviewed & are unremarkable except as noted in Subjective Physical Exam Physical Exam: General: Alert, oriented Psych: Appropriate mood and affect Neuro: No gross deficits while in bed HEENT: NC/AT CV: RRR Resp: Breath sounds without wheeze bilaterally, no increased effort of breathing Abdomen: Soft, nontender Extremities: No edema in lower extremities bilaterally. Results & Data Results & Data Vital Signs (Past 12 Hours) Vital Signs Temp Pulse Pulse Resp BP BP Pulse Ox 12/09/23 11:19 36.5 C 79 18 136/71 94 12/09/23 08:29 71 12/09/23 08:01 36.7 C 68 16 118/65 93 12/09/23 07:33 72 18 90 12/09/23 07:12 12/09/23 02:51 36.5 C 74 20 144/63 H 94 12/09/23 01:16 72 17 94 12/09/23 00:33 O2 Del Method O2 Flow Rate 12/09/23 11:19 Nasal Cannula 4 12/09/23 08:29 12/09/23 08:01 Nasal Cannula 4 12/09/23 07:33 Nasal Cannula 3 12/09/23 07:12 Nasal Cannula 4 12/09/23 02:51 Nasal Cannula 3 12/09/23 01:16 Nasal Cannula 4 12/09/23 00:33 Nasal Cannula 4
[2023-12-10 06:06] LABS: Hematocrit (blood only) 28.1 % (42.0-52.0); Hemoglobin 8.6 g/dl (14.0-18.0); Mean Corpuscular Hemoglobin 24.6 pg (25.0-34.0); Mean Corpuscular Hgb Conc 30.6 g/dL (32.0-36.0); Mean Corpuscular Volume 80.5 fL (80.0-100.0); Mean Platelet Volume 9.4 fL (9.4-12.4); Platelet Count 507 K/uL (130-400); RDW Coefficient of Variation 18.6 % (11.5-14.5); RDW Standard Deviation 54.3 fL (36.4-46.3); Red Blood Count 3.49 M/uL (4.70-6.10); White Blood Count 17.63 K/ul (4.8-10.8)
[2023-12-10 06:27] LABS: Albumin Globulin Ratio 0.8 (0.9-2); Albumin Level 2.7 gm/dl (3.4-5.0); BUN Creatinine Ratio 41.4 (10-20); Bilirubin,Total 0.5 mg/dl (0.2-1.0); Calcium 9.8 mg/dl (8.6-10.3); Creatinine Clr Calc Pharmacy 58.2 ml/min; Globulin 3.2 gm/dl (2.5-4.0); Magnesium 1.8 mg/dl (1.7-2.4); Phosphorus 5.2 mg/dl (2.5-4.9); Total Protein 5.9 gm/dl (6.0-8.3)
[2023-12-10 06:38] LABS: Basophils # (auto) 0.02 K/uL (0.00-0.20); Basophils % (auto) 0.1 %; Immature Granulocytes # (auto) 0.24 K/uL (0.01-0.20); Immature Granulocytes % (auto) 1.4 %; Lymphocytes # (auto) 0.25 K/uL (1.20-3.40); Lymphocytes % (auto) 1.4 %; Monocytes # (auto) 0.13 K/uL (0.11-0.59); Monocytes % (auto) 0.7 %; Neutrophils # (auto) 16.99 K/uL (1.40-6.50); Neutrophils % (auto) 96.4 %; Polychromasia 1+
--- NOTE | 2023-12-10 07:42 | XRay Report ---
XR chest 1V portable CLINICAL HISTORY: f/u COMPARISON STUDY: Chest CT December 01, 2023. Chest radiograph December 08, 2023. FINDINGS: There is no pneumothorax or pleural effusion. Cardiomegaly is again noted. Interstitial thi ckening and bilateral airspace opacities, greater within the right lung, have mildly progressed. IMPRESSION: Cardiomegaly. Increase in interstitial thickening and bilateral opacities. The findings could reflect pulmonary edema or an infectious etiology. ACT 112: Negative or not required by law. Electronically signed by: Jose Antonio Krause M.D. 12/10/2023 7:41 AM
--- NOTE | 2023-12-10 10:01 | Pulmonology Progress Note ---
Date of Service December 10, 2023 Assessment & Plan (1) Acute respiratory failure with hypoxia: (2) Pneumonitis: (3) Metastatic renal cell carcinoma to bone: Plan CTA chest 12/01/2023 personally reviewed: Diffuse patchy groundglass opacities appreciated bilaterally upper and lower lobes Multiple pulmonary nodules appreciated bilaterally measuring up to 6 mm No significant mediastinal lymphadenopathy 2D echo 12/07/2023: EF 60-65%, grade 1 diastolic dysfunction, moderate concentric LVH, RV normal in size and function -- Acute hypoxic respiratory failure Likely secondary to pneumonitis from Keytruda It will be classified as grade 3- 4 pneumonitis and it is recommended to discontinue Keytruda Negative for SARS Cov-2, influenza A/B and RSV on 12/06/2023 Procalcitonin 0.21 BNP 138 --> 44 Recommendation for grade 3-grade 4 pneumonitis is discontinuation of Keytruda and giving Solu-Medrol 1-2 mg/kg for 4-6 weeks and gradually taper it off I would recommend Bactrim prophylaxis Monday as well as pantoprazole while the patient is on steroids -- History of metastatic renal cell carcinoma Was getting Keytruda, currently on hold Plan: Continue with diuretics Continue with antibiotics with atypical coverage for 5 days Thank you Solu-Medrol to 40 mg 3 times daily which will be approximately 1.5 Mg per KG Keep O2 saturation between 90-92% Case was discussed with primary team and RN at bedside Please note the above document was generated using voice recognition software. It may contain grammatical, syntax or spelling errors.Any formal questions or concerns about the content, text or information contained within the body of this dictation should be directly addressed to the provider for clarification. Admission and Anticipated Discharge Date Admission Date: December 06, 2023 Subjective Patient seen and examined at bedside. No acute distress. Did not have a good night sleep Has been complaining of cough. He was saturating 90-91% on 4 L nasal cannula He stated that whenever he exerts himself little bit he gets really short of breath Overall he says that he does not feel any significant difference prior to coming to the hospital Denied any headache No nausea or vomiting Review of Systems 2 Review of Systems: All systems reviewed & are unremarkable except as noted in Subjective Physical Exam 2 Physical Exam: Constitutional: No acute distress HEENT: EOMI, PERRLA Respiratory system: Decreased air entry bilaterally, no wheeze, no rhonchi, positive crackles appreciated bilateral lower lobes, questionable Velcro-like CVS: S1-S2 positive, no murmurs or gallops Abdomen: Soft, nontender, nondistended, positive bowel sounds x4 Extremities: +2 pulses bilaterally radialis/ dorsalis pedis, no cyanosis, +1 pitting edema bilateral lower extremity Neuro: Awake alert oriented x3 Psych: Normal mood and affect G/U: No Damico Skin: no rashes, warm and dry Lymphatic: no cervical or axillary lymphadenopathy Results & Data Results & Data Vital Signs (Past 12 Hours) Vital Signs Temp Pulse Pulse Resp BP BP Pulse Ox 12/10/23 08:00 36.8 C 71 18 120/54 L 94 12/10/23 07:18 67 12/10/23 07:18 77 18 93 12/10/23 07:09 12/10/23 02:41 36.6 C 78 18 124/68 96 12/09/23 22:47 37.6 C H 92 H 18 146/75 H 93 12/09/23 22:08 98 H O2 Del Method O2 Flow Rate 12/10/23 08:00 Oxymask 4 12/10/23 07:18 12/10/23 07:18 Oxymask 4 12/10/23 07:09 Oxymask 6 12/10/23 02:41 Oxymask 6 12/09/23 22:47 Oxymask 6 12/09/23 22:08 Laboratory Results 12/10/23 05:24 12/10/23 05:24 PG Care Time/CCT Total # of Minutes Spent Total Time Spent with Patient: Total time spent is greater than 50% in coordination of care (as documented) at patient's floor/unit and/or counseling patient: Coding Level of Care Code 25933 SUB INP/OBS CARE 2/35MIN Diagnoses Acute respiratory failure with hypoxia J96.01 Pneumonitis J98.4 Metastatic renal cell carcinoma to bone C79.51; C64.9
[2023-12-10] MEDS: PANTOprazole 40 MG TAB PO SCH (11:53)
--- NOTE | 2023-12-10 12:57 | Hospitalist Progress Note ---
Date of Service December 10, 2023 Assessment & Plan (1) Acute respiratory failure with hypoxia: (2) Pneumonitis: (3) Acute pulmonary edema: (4) Metastatic renal cell carcinoma to bone: (5) Hypertension: Plan Pt is a 73-year-old male with history of metastatic renal cell carcinoma, with osseous and pulmonary hilar/mediastinal mets, hypertension, and other problems noted below presenting with shortness of breath and cough x 1 to 2 weeks. Acute respiratory failure with hypoxia, multifactorial Pulmonary edema Pneumonitis, secondary to immunotherapy Presence of mediastinal metastatic disease Pt presenting hypoxic Chest XRAY noting concern for pleural effusions CTA chest from 11/30 with diffuse ground glass opacities Echo with EF of 60 to 65%, grade 1 diastolic dysfunction, moderate LVH Lasix 40 mg IV daily Currently Keytruda on hold procalcitonin normal Pulmonology consulted, appreciate recs --switched to IV methylpred from po prednisone - recommending discontinuation of Keytruda -12/09/23: "Continue with diuretics. Continue with antibiotics with atypical coverage for 5 days. Continue with Solu-Medrol to 40 mg twice daily which will be approximately 1 Mg per KG. Keep O2 saturation between 90-92%" Continue Levaquin for possible bacterial pneumonia component given immunocompromised state Continue nebs 4 times daily, incentive spirometry, flutter valve Continue to monitor Chronic Anemia Hgb currently 8.9 AM anemia panel noting iron deficiency IV Venofer x1 dose 200mg Continue to monitor Congestive Heart failure Chest XRAY concerning for cardiomegaly with CHF and pulmonary edema BNP elevated with downtrend Received 2 doses of IV Lasix 40mg daily, transitioned to po lasix 20mg daily Cardiology consulted, appreciate recs. Recommended/ stated the following: -"Cardiac assessment has demonstrated normal LV systolic function on serial testing Exam not consistent pulmonary edema or congestive heart failure Trivial lower extremity edema secondary to hypoalbuminemia and acute illness Recommendations: Treat hypoxia likely require oxygen on hospital discharge Discontinue IV furosemide Add oral furosemide 20 mg/day over hydrochlorothiazide for management of mild pedal edema. Hyponatremia may improve off hydrochlorothiazide" p.o. Lasix 20 mg daily added Metastatic renal cell carcinoma with osseous and pulmonary involvement Currently Keytruda on hold as per oncologist Dr. West Hypertension Patient reports blood pressure was on the lower side Holding losartan Diet: Regular DVT prophylaxis: heparin SQ CODE STATUS: Patient okay with CPR and defibrillation, no mechanical ventilation or intubation Dispo: PT/OT ordered for further recs, home once medically stable Admission and Anticipated Discharge Date Admission Date: December 06, 2023 Subjective patient was seen standing at the bedside trying to get in bed. Per nursing overnight he desaturated while trying to have a shower. States that he was seen by pulmonology and they advised that going up today would be up to him. States that while initially he wanted to go home he feels like he should stay another night. States he feels worn out even with short walks around his room. Review of Systems Review of Systems: All systems reviewed & are unremarkable except as noted in Subjective Physical Exam Physical Exam: General: Alert, oriented Psych: Appropriate mood and affect Neuro: No gross deficits while in bed HEENT: NC/AT CV: RRR Resp: Breath sounds without wheeze bilaterally, no increased effort of breathing Abdomen: Soft, nontender Extremities: No edema in lower extremities bilaterally. Results & Data Results & Data Vital Signs (Past 12 Hours) Vital Signs Temp Pulse Pulse Resp BP Pulse Ox O2 Del Method 12/10/23 12:27 80 20 89 L Oxymask 12/10/23 11:19 36.6 C 70 16 119/61 93 Oxymask 12/10/23 08:00 36.8 C 71 18 120/54 L 94 Oxymask 12/10/23 07:18 67 12/10/23 07:18 77 18 93 Oxymask 12/10/23 07:09 Oxymask 12/10/23 02:41 36.6 C 78 18 124/68 96 Oxymask O2 Flow Rate 12/10/23 12:27 5 12/10/23 11:19 5 12/10/23 08:00 4 12/10/23 07:18 12/10/23 07:18 4 12/10/23 07:09 6 12/10/23 02:41 6
[2023-12-10] MEDS: methylPREDNISolone 40 MG in SYRINGE 0 ML IV SCH (13:50)
[2023-12-11 06:34] LABS: Hematocrit (blood only) 29.7 % (42.0-52.0); Hemoglobin 9.5 g/dl (14.0-18.0); Mean Corpuscular Volume 78.2 fL (80.0-100.0); Mean Platelet Volume 9.4 fL (9.4-12.4); Platelet Count 593 K/uL (130-400); RDW Coefficient of Variation 18.3 % (11.5-14.5); RDW Standard Deviation 51.8 fL (36.4-46.3); White Blood Count 22.29 K/ul (4.8-10.8)
[2023-12-11 07:01] LABS: Basophils # (auto) 0.03 K/uL (0.00-0.20); Basophils % (auto) 0.1 %; Immature Granulocytes % (auto) 0.9 %; Lymphocytes % (auto) 0.9 %; Monocytes # (auto) 0.18 K/uL (0.11-0.59); Monocytes % (auto) 0.8 %; Neutrophils # (auto) 21.68 K/uL (1.40-6.50); Neutrophils % (auto) 97.3 %; Rouleaux 1+
[2023-12-11 07:05] LABS: BUN Creatinine Ratio 38.9 (10-20); Calcium 9.7 mg/dl (8.6-10.3); Creatinine Clr Calc Pharmacy 59.8 ml/min; Magnesium 1.8 mg/dl (1.7-2.4); Phosphorus 3.2 mg/dl (2.5-4.9); Potassium 4.5 mmol/L (3.5-5.1)
--- NOTE | 2023-12-11 08:55 | Pulmonology Progress Note ---
Date of Service December 11, 2023 Assessment & Plan (1) Acute respiratory failure with hypoxia: (2) Pneumonitis: (3) Metastatic renal cell carcinoma to bone: Plan CTA chest 12/01/2023 personally reviewed: Diffuse patchy groundglass opacities appreciated bilaterally upper and lower lobes Multiple pulmonary nodules appreciated bilaterally measuring up to 6 mm No significant mediastinal lymphadenopathy 2D echo 12/07/2023: EF 60-65%, grade 1 diastolic dysfunction, moderate concentric LVH, RV normal in size and function -- Acute hypoxic respiratory failure Likely secondary to pneumonitis from Keytruda It will be classified as grade 3- 4 pneumonitis and it is recommended to discontinue Keytruda Negative for SARS Cov-2, influenza A/B and RSV on 12/06/2023 Procalcitonin 0.21 BNP 138 --> 44 Recommendation for grade 3-grade 4 pneumonitis is discontinuation of Keytruda and giving Solu-Medrol 1-2 mg/kg for 4-6 weeks and gradually taper it off I would recommend Bactrim prophylaxis Monday as well as pantoprazole while the patient is on steroids -- History of metastatic renal cell carcinoma Was getting Keytruda, currently on hold Patient feels somewhat worse from a pulmonary perspective. That being said, his oxygen saturations are the same and chest x-ray is not worsened at this time. Certainly this will take a lengthy recovery process. As previously outlined, continue with prednisone taper in the outpatient setting. Please note the above document was generated using voice recognition software. It may contain grammatical, syntax or spelling errors.Any formal questions or concerns about the content, text or information contained within the body of this dictation should be directly addressed to the provider for clarification. Admission and Anticipated Discharge Date Admission Date: December 06, 2023 Supervising Physician Co-Signing Physician Notes I saw and evaluated the patient with David Araiza PA-C, and agree with findings and plan as documented in the note. Patient seen and examined at bedside. No acute distress, no adverse events overnight He was saturating 87% on room air, on wearing the oxygen 4 L, he was able to get oxygen to around 91% Denied any headache, no nausea vomiting Appetite is fair. Still complained of significant coughing episodes and generalized lethargy. As per the patient it the symptoms have not significantly changed since coming to the hospital Constitutional: No acute distress HEENT: EOMI, PERRLA Respiratory system: Decreased air entry bilaterally, no wheeze, no rhonchi, positive crackles appreciated bilateral lower lobes, questionable Velcro-like CVS: S1-S2 positive, no murmurs or gallops Abdomen: Soft, nontender, nondistended, positive bowel sounds x4 Extremities: +2 pulses bilaterally radialis/ dorsalis pedis, no cyanosis, +1 pitting edema bilateral lower extremity Neuro: Awake alert oriented x3 Psych: Normal mood and affect G/U: No Damico Plan: Recommend starting down titration at 80 mg daily (can do 40 mg twice daily) and reducing by 10 mg/week until he is titrated down to off. Recommend PJP prophylaxis while on the high doses of steroids greater than 20 mg. Would require Bactrim Monday/Monday/Monday while on dose of prednisone greater than 20 mg daily. Commend adding pantoprazole as well as vitamin D on a daily basis Continue with diuretics Antitussive medication [id number], recommend guaifenesin with codeine or Tylenol with codeine which she was taking at home Not to take more than 3 g of Tylenol in a day Continue with antibiotics with atypical coverage for 5 days Keep O2 saturation between 90-92% Case was discussed with primary team Please note the above document was generated using voice recognition software. It may contain grammatical, syntax or spelling errors.Any formal questions or concerns about the content, text or information contained within the body of this dictation should be directly addressed to the provider for clarification. Subjective Patient was seen and evaluated at bedside. He states that he is still having some difficulty with breathing and feels that the cough is largely contributing. He is unable to take a deep breath without coughing. He describes no pain, production of cough, or hemoptysis, thankfully. Review of Systems Review of Systems: As per subjective. Physical Exam Physical Exam: VITAL SIGNS Vital signs and nursing notes were reviewed. GENERAL 73-year-old male appearing his stated age who is in no acute distress. Communicates well with provider and answers questions appropriately. LUNGS Chest wall evaluation demonstrates normal chest wall A:P diameter. Auscultation reveals weak inspiratory effort. Fine crackles. No wheezing. CARDIAC RRR with S1/S2. No murmur, rubs, or gallops appreciated. EXTREMITIES Nail clubbing not present. No peripheral cyanosis. No pretibial edema present. +3/5 radial palpated throughout. PSYCH A&Ox3 and cooperates fully with examiner. Pt is very pleasant and interacts well with examiner. Skin: no rashes, warm and dry Lymphatic: no cervical or axillary lymphadenopathy Results & Data Results & Data Vital Signs (Past 12 Hours) Vital Signs Temp Pulse Pulse Resp BP Pulse Ox O2 Del Method 12/11/23 07:54 36.6 C 81 24 128/70 91 Oxymask 12/11/23 07:50 Oxymask 12/11/23 07:08 19 18 L Oxymask 12/11/23 07:00 85 12/11/23 03:36 36.4 C L 75 20 129/77 92 Oxymask 12/10/23 23:41 36.4 C L 82 20 150/80 H 92 Oxymask 12/10/23 21:45 75 O2 Flow Rate 12/11/23 07:54 4 12/11/23 07:50 12/11/23 07:08 7 12/11/23 07:00 12/11/23 03:36 7 12/10/23 23:41 5 12/10/23 21:45 PG Care Time/CCT Total # of Minutes Spent Total Time Spent with Patient: Total time spent is greater than 50% in coordination of care (as documented) at patient's floor/unit and/or counseling patient: Coding Level of Care Code 24382 SUB INP/OBS CARE 2/35MIN Diagnoses Acute respiratory failure with hypoxia J96.01 Pneumonitis J98.4 Metastatic renal cell carcinoma to bone C79.51; C64.9
--- NOTE | 2023-12-11 10:27 | XRay Report ---
XR chest 1V portable CLINICAL HISTORY: f/u TECHNIQUE: Single frontal radiograph of the chest was obtained. Comparison: Comparison is made to chest radiographs 12/10/2023 FINDINGS: No lines and tubes are seen. Cardiomegaly is noted. Interstitial thickening is seen. Bibasilar airspa ce opacities are stable to minimally improved. No evidence of pleural effusion or pneumothorax. IMPRESSION: Stable cardiomegaly. Redemonstration of interstitial and airspace opacities. ACT 112: Negative or not required by law. Electronically signed by: Douglas Loomis M.D. 12/11/2023 10:26 AM
--- NOTE | 2023-12-11 14:05 | Discharge Summary ---
Discharge Summary Date of Service December 11, 2023 Principal Dx & Hospital Course #1 = Principal Diagnosis (1) Acute respiratory failure with hypoxia: (2) Pneumonitis: (3) Acute pulmonary edema: (4) Metastatic renal cell carcinoma to bone: (5) Hypertension: Plan Pt is a 73-year-old male with history of metastatic renal cell carcinoma, with osseous and pulmonary hilar/mediastinal mets, hypertension, and other problems noted below presenting with shortness of breath and cough x 1 to 2 weeks. Acute respiratory failure with hypoxia, multifactorial Pulmonary edema Pneumonitis, secondary to immunotherapy Presence of mediastinal metastatic disease Pt presenting hypoxic Chest XRAY noting concern for pleural effusions CTA chest from 11/30 with diffuse ground glass opacities Echo with EF of 60 to 65%, grade 1 diastolic dysfunction, moderate LVH Lasix 40 mg IV daily Currently Keytruda on hold procalcitonin normal Pulmonology consulted, appreciate recs --switched to IV methylpred from po prednisone - recommending discontinuation of Keytruda -12/09/23: "Continue with diuretics. Continue with antibiotics with atypical coverage for 5 days. Continue with Solu-Medrol to 40 mg twice daily which will be approximately 1 Mg per KG. Keep O2 saturation between 90-92%" Continue Levaquin for possible bacterial pneumonia component given immunocompromised state Continue nebs 4 times daily, incentive spirometry, flutter valve Continue to monitor Chronic Anemia Hgb currently 8.9 AM anemia panel noting iron deficiency IV Venofer x1 dose 200mg Continue to monitor Congestive Heart failure Chest XRAY concerning for cardiomegaly with CHF and pulmonary edema BNP elevated with downtrend Received 2 doses of IV Lasix 40mg daily, transitioned to po lasix 20mg daily Cardiology consulted, appreciate recs. Recommended/ stated the following: -"Cardiac assessment has demonstrated normal LV systolic function on serial testing Exam not consistent pulmonary edema or congestive heart failure Trivial lower extremity edema secondary to hypoalbuminemia and acute illness Recommendations: Treat hypoxia likely require oxygen on hospital discharge Discontinue IV furosemide Add oral furosemide 20 mg/day over hydrochlorothiazide for management of mild pedal edema. Hyponatremia may improve off hydrochlorothiazide" p.o. Lasix 20 mg daily added Metastatic renal cell carcinoma with osseous and pulmonary involvement Currently Keytruda on hold as per oncologist Dr. West Hypertension Patient reports blood pressure was on the lower side Holding losartan Diet: Regular DVT prophylaxis: heparin SQ CODE STATUS: Patient okay with CPR and defibrillation, no mechanical ventilation or intubation Dispo: PT/OT ordered for further recs, home once medically stable Admission HPI Per Admitting Provider 73-year-old male with history of metastatic renal cell carcinoma, with osseous and pulmonary hilar/mediastinal mets, hypertension, and other problems noted below presenting with shortness of breath and cough x 1 to 2 weeks. Patient follows with [facility] oncology and [facility] oncology in [place]. About 2 weeks ago, patient developed dry cough and shortness of breath associated with some voice hoarseness. CT chest done as an outpatient showed new bilateral micronodular infiltrates consistent with pneumonitis. Symptoms felt to be multifactorial secondary to drug-induced pneumonitis, presence of bul ky mediastinal mid metastatic disease process. He was started on prednisone 60 mg p.o. daily last November 28, 2023. Due to persistence of symptoms, patient was referred to dietary pulmonary service and was seen last December 04, 2023. He was advised to continue with the prednisone 60 mg p.o. daily and HCTZ 12.5 mg daily as needed for lower EXTR edema was also started. Today, patient presented to the ER for worsening of shortness of breath and cough. Denies fevers or chills. Found to be hypoxic in the ER in the high 90s on room air, placed on 2 L of O2 by cell cannula. Chest x-ray showing possible pulmonary edema and groundglass opacities possible infectious versus inflammatory in etiology. On exam, patient seen resting in bed, comfortable on 2 L of O2. No other new symptoms. Discharge Exam General: Alert, oriented Psych: Appropriate mood and affect Neuro: No gross deficits while in bed HEENT: NC/AT CV: RRR Resp: Breath sounds without wheeze bilaterally, no increased effort of breathing Abdomen: Soft, nontender Extremities: No edema in lower extremities bilaterally. Updated Medication List Medication Instructions Recorded Confirmed Type aspirin 81 mg chewable tablet 81 mg PO DAILY 10/27/22 12/06/23 History bupropion HCl 100 mg tablet,12 hr 100 mg PO BID 10/27/22 12/06/23 History sustained-release (Wellbutrin SR) cholecalciferol (vitamin D3) 100 100 mcg PO DAILY 10/27/22 12/06/23 History mcg (4,000 unit) tablet ferrous sulfate 325 mg (65 mg 325 mg PO Q OTHER DAY 10/27/22 12/06/23 History iron) tablet,delayed release finasteride 5 mg tablet 5 mg PO DAILY 10/27/22 12/06/23 History losartan 25 mg tablet (Cozaar) 25 mg PO DAILY 10/27/22 12/06/23 History multivitamin 1 tab PO DAILY 10/27/22 12/06/23 History simvastatin 10 mg tablet 10 mg PO DAILY 10/27/22 12/06/23 History ondansetron HCl 8 mg tablet 8 mg PO Q6H PRN Nausea And Vomiting 11/09/22 12/06/23 History prochlorperazine maleate 10 mg 10 mg PO Q6H PRN Nausea And 11/09/22 12/06/23 History tablet (Compazine) Vomiting calcium carbonate (Calcium 500) 500 mg PO BID 05/23/23 12/06/23 History mecobalamin (vitamin B12) 1,000 1,000 mcg PO BID 05/23/23 12/06/23 History mcg chewable tablet acetaminophen 300 mg-codeine 30 mg 2 tab PO Q6H PRN Pain 12/06/23 12/06/23 History tablet albuterol sulfate 90 mcg/actuation 2 puff inhalation Q6H PRN Dyspnea 12/06/23 12/06/23 History aerosol inhaler hydrochlorothiazide 12.5 mg tablet 12.5 mg PO DAILY 12/06/23 12/06/23 History levothyroxine 25 mcg tablet 25 mcg PO DAILY 12/06/23 12/06/23 History prednisone 10 mg tablet 60 mg PO DAILY 12/06/23 12/06/23 History Hospital Stay Data Consultations 12/06/23 13:48 ED Decision to Admit Stat 12/07/23 08:28 Consult Pulmonology Routine 12/08/23 07:36 Consult Cardiology Routine
--- NOTE | 2023-12-11 15:07 | Hospitalist Progress Note ---
Date of Service December 11, 2023 Assessment & Plan (1) Acute respiratory failure with hypoxia: (2) Pneumonitis: (3) Acute pulmonary edema: (4) Metastatic renal cell carcinoma to bone: (5) Hypertension: Plan Pt is a 73-year-old male with history of metastatic renal cell carcinoma, with osseous and pulmonary hilar/mediastinal mets, hypertension, and other problems noted below presenting with shortness of breath and cough x 1 to 2 weeks. Acute respiratory failure with hypoxia, multifactorial Pulmonary edema Pneumonitis, secondary to immunotherapy Presence of mediastinal metastatic disease Pt presenting hypoxic Chest XRAY noting concern for pleural effusions CTA chest from 11/30 with diffuse ground glass opacities Echo with EF of 60 to 65%, grade 1 diastolic dysfunction, moderate LVH Lasix 40 mg IV daily Currently Keytruda on hold procalcitonin normal Pulmonology consulted, appreciate recs --switched to IV methylpred from po prednisone - recommending discontinuation of Keytruda -12/09/23: "Continue with diuretics. Continue with antibiotics with atypical coverage for 5 days. Continue with Solu-Medrol to 40 mg twice daily which will be approximately 1 Mg per KG. Keep O2 saturation between 90-92%" Continue Levaquin for possible bacterial pneumonia component given immunocompromised state Continue nebs 4 times daily, incentive spirometry, flutter valve Continue to monitor 12/11/23- patient had a 2 step today in anticipation of discharge. He required 9 L which is standing up and further requirement of 15 L with a few steps out of the room. Case discussed with pulmonology, advised getting limited echo to rule out PFO given the significant increase in oxygen requirement with ambulation. Also advised starting BiPAP as needed and at nighttime. Case discussed with patient and at bedside, patient agreeable to staying for further evaluation and management. bactrim PCP prophylaxis also ordered. Chronic Anemia Hgb currently 8.9 AM anemia panel noting iron deficiency IV Venofer x1 dose 200mg Continue to monitor Congestive Heart failure Chest XRAY concerning for cardiomegaly with CHF and pulmonary edema BNP elevated with downtrend Received 2 doses of IV Lasix 40mg daily, transitioned to po lasix 20mg daily Cardiology consulted, appreciate recs. Recommended/ stated the following: -"Cardiac assessment has demonstrated normal LV systolic function on serial testing Exam not consistent pulmonary edema or congestive heart failure Trivial lower extremity edema secondary to hypoalbuminemia and acute illness Recommendations: Treat hypoxia likely require oxygen on hospital discharge Discontinue IV furosemide Add oral furosemide 20 mg/day over hydrochlo rothiazide for management of mild pedal edema. Hyponatremia may improve off hydrochlorothiazide" p.o. Lasix 20 mg daily added Metastatic renal cell carcinoma with osseous and pulmonary involvement Currently Keytruda on hold as per oncologist Dr. West Hypertension Patient reports blood pressure was on the lower side Holding losartan Diet: Regular DVT prophylaxis: heparin SQ CODE STATUS: Patient okay with CPR and defibrillation, no mechanical ventilation or intubation Dispo: PT/OT ordered for further recs, home once medically stable Admission and Anticipated Discharge Date Admission Date: December 06, 2023 Subjective patient was seen multiple times during the day. Anxious for discharge. States he wants to go home today. However Dante to stop patient with significant desaturation even with a few steps in the room and sitting up at bedside requiring up to 15 L of oxygen. Upon rediscussion with patient and patient states he is agreeable to staying for further evaluation Case also discussed with pulmonology Review of Systems Review of Systems: All systems reviewed & are unremarkable except as noted in Subjective Physical Exam Physical Exam: General: Alert, oriented Psych: Appropriate mood and affect Neuro: No gross deficits while in bed HEENT: NC/AT CV: RRR Resp: Breath sounds without wheeze bilaterally, no increased effort of breathing Abdomen: Soft, nontender Extremities: No edema in lower extremities bilaterally. Results & Data Results & Data Vital Signs (Past 12 Hours) Vital Signs Temp Pulse Pulse Resp BP Pulse Ox O2 Del Method 12/11/23 14:49 99 H 22 87 L Oxymask 12/11/23 14:25 61 12/11/23 12:03 36.3 C L 89 16 126/66 90 Oxymask 12/11/23 07:54 36.6 C 81 24 128/70 91 Oxymask 12/11/23 07:50 Oxymask 12/11/23 07:08 19 18 L Oxymask 12/11/23 07:00 85 12/11/23 03:36 36.4 C L 75 20 129/77 92 Oxymask O2 Flow Rate 12/11/23 14:49 15 12/11/23 14:25 12/11/23 12:03 5 12/11/23 07:54 4 12/11/23 07:50 12/11/23 07:08 7 12/11/23 07:00 12/11/23 03:36 7
[2023-12-11] MEDS: SULFAMETHOXAZOLE/TRIMETHOPRIM DS 800/160MG TAB PO SCH (17:08)
[2023-12-11] MEDS: LORazepam 0.5 MG TAB PO PRN (17:08)
[2023-12-11] MEDS: hydrOXYzine HCl 10 MG TAB PO PRN (20:09)
[2023-12-11 20:16] LABS: Base Excess VBG 3.8 mEq/L; HCO3 VBG 29 mmol/L; Oxygen Saturation VBG < 60.0 %; PCO2 VBG 46 mmHg (38-50); PO2 VBG 25 mmHg; pH VBG 7.41 (7.36-7.41)
[2023-12-11] MEDS: MAGNESIUM SULFATE / D5W 1 GM/100 ML BAG IV ONE (20:34)
[2023-12-11] MEDS: LEVALBUTEROL 1.25 MG/3 ML NEB NEB STA (20:34)
[2023-12-11] MEDS: IPRATROPIUM BROMIDE NEB SOLN 0.02% 0.5MG/2.5ML VIAL INH STA (20:34)
[2023-12-12 06:11] LABS: Hematocrit (blood only) 26.4 % (42.0-52.0); Hemoglobin 8.6 g/dl (14.0-18.0); Mean Corpuscular Hemoglobin 25.1 pg (25.0-34.0); Mean Corpuscular Hgb Conc 32.6 g/dL (32.0-36.0); Mean Platelet Volume 9.5 fL (9.4-12.4); Platelet Count 501 K/uL (130-400); RDW Coefficient of Variation 18.6 % (11.5-14.5); RDW Standard Deviation 51.5 fL (36.4-46.3); Red Blood Count 3.43 M/uL (4.70-6.10); White Blood Count 21.99 K/ul (4.8-10.8)
[2023-12-12 06:26] LABS: BUN Creatinine Ratio 35.7 (10-20); Calcium 9.1 mg/dl (8.6-10.3); Creatinine Clr Calc Pharmacy 55.8 ml/min; Magnesium 2.1 mg/dl (1.7-2.4); Phosphorus 3.8 mg/dl (2.5-4.9); Potassium 4.6 mmol/L (3.5-5.1)
[2023-12-12 06:34] LABS: Basophils # (auto) 0.02 K/uL (0.00-0.20); Basophils % (auto) 0.1 %; Immature Granulocytes # (auto) 0.14 K/uL (0.01-0.20); Immature Granulocytes % (auto) 0.6 %; Lymphocytes # (auto) 0.18 K/uL (1.20-3.40); Lymphocytes % (auto) 0.8 %; Monocytes # (auto) 0.16 K/uL (0.11-0.59); Monocytes % (auto) 0.7 %; Neutrophils # (auto) 21.49 K/uL (1.40-6.50); Neutrophils % (auto) 97.8 %; Polychromasia 1+
--- NOTE | 2023-12-12 06:40 | XRay Report ---
XR chest 1V portable HISTORY: 73 years-old Male low o2 acute hypoxia COMPARISON: Chest radiograph of same day at 8:59 AM, CTA chest 11/11/2023 TECHNIQUE: AP view of the chest FINDINGS: Cardiac silhouette is upper limits of normal in size. Diffuse reticular nodular opacities are redemon strated. No pneumothorax or large pleural effusion. Mild patchy bibasilar airspace opacities are justyna lar to prior. Spondylotic spurring of the spine. IMPRESSION: Similar appearance of the diffuse bilateral reticulonodular densities with mild bibasilar airspace opacities suggestive of an infectious or inflammatory pneumonitis. ACT 112: Negative or not required by law. The above report was generated using voice recognition software. It may contain grammatical, syntax o r spelling errors. Electronically signed by: John Jiménez M.D. 12/12/2023 6:39 AM
--- NOTE | 2023-12-12 08:57 | XRay Report ---
XR chest 1V portable CLINICAL HISTORY: f/u TECHNIQUE: Single frontal radiograph of the chest was obtained. Comparison: Comparison is made to chest radiograph 12/11/2023 FINDINGS: No lines and tubes are seen. Cardiomegaly is noted. Redemonstration of reticulonodular and bibasilar airspace opacities. No evidence of pleural effusion or pneumothorax. IMPRESSION: No significant change in reticulonodular and bibasilar opacities compatible with pneumonitis. ACT 112: Negative or not required by law. Electronically signed by: Douglas Loomis M.D. 12/12/2023 8:55 AM
[2023-12-12] MEDS ORDERED: HYDROcodone/HOMATROPINE SYRUP 5MG/1.5MG 5ML UDP PO PRN (09:33)
[2023-12-12] MEDS ORDERED: BENZONATATE 100 MG CAPSULE PO PRN (09:36)
--- NOTE | 2023-12-12 10:23 | Pulmonology Progress Note ---
Date of Service December 12, 2023 Assessment & Plan (1) Acute respiratory failure with hypoxia: (2) Pneumonitis: (3) Metastatic renal cell carcinoma to bone: Plan CTA chest 12/01/2023 personally reviewed: Diffuse patchy groundglass opacities appreciated bilaterally upper and lower lobes Multiple pulmonary nodules appreciated bilaterally measuring up to 6 mm No significant mediastinal lymphadenopathy 2D echo 12/07/2023: EF 60-65%, grade 1 diastolic dysfunction, moderate concentric LVH, RV normal in size and function -- Acute hypoxic respiratory failure Likely secondary to pneumonitis from Keytruda It will be classified as grade 3- 4 pneumonitis and it is recommended to discontinue Keytruda Negative for SARS Cov-2, influenza A/B and RSV on 12/06/2023 Procalcitonin 0.21 BNP 138 --> 44 Recommendation for grade 3-grade 4 pneumonitis is discontinuation of Keytruda and giving Solu-Medrol 1-2 mg/kg for 4-6 weeks and gradually taper it off Recommend starting down titration at 80 mg daily (can do 40 mg twice daily) and reducing by 10 mg/week until he is titrated down to off. Recommend PJP prophylaxis while on the high doses of steroids greater than 20 mg. Would require Bactrim Monday/Monday/Monday while on dose of prednisone greater than 20 mg daily. Commend adding pantoprazole as well as vitamin D on a daily basis -- History of metastatic renal cell carcinoma Was getting Keytruda, currently on hold Patient noted to have positive findings on bubble study suggestive of shunting which may be contributing to the patient's degree of hypoxemia. Patient with ongoing complaints of worsening cough as well as difficulty with breathing. The patient did receive medications for his cough which have seemed to do more of a job sedating him rather than helping him actively airway. The patient would benefit from pulmonary toileting including incentive spirometry. Consideration for the addition of CPAP to help increase ventilation and improve aeration. Will place order for him to trial this as well. Unfortunately, this process of pneumonitis will likely be prolonged and without rapid recovery. I did discuss this with patient and family at bedside. We did review imaging studies as well. Discussed the patient with his daughter, Percy ([phone]), at the request the patient's . Please note the above document was generated using voice recognition software. It may contain grammatical, syntax or spelling errors.Any formal questions or concerns about the content, text or information contained within the body of this dictation should be directly addressed to the provider for clarification. Admission and Anticipated Discharge Date Admission Date: December 06, 2023 Supervising Physician Co-Signing Physician Notes I saw and evaluated the patient with David Araiza PA-C, and agree with findings and plan as documented in the note. Patient seen and examined at bedside. No acute distress He was saturating 87-88% on 8 L nasal cannula He was somnolent. He had gotten lorazepam around 9 AM along with his cough syrup Again his chief complaint is that he coughs a lot. Not bringing up any phlegm He is more worried about coughing then his oxygen requirement. Patient's daughter who is a PA was concerned about bronchospasm. Patient has been not wheezing since the time he came to the hospital and he has been on Solu-Medrol 40 mg Q8 now. I do not think he is in bronchospasm. Constitutional: No acute distress HEENT: EOMI, PERRLA Respiratory system: Decreased air entry bilaterally, no wheeze, no rhonchi, positive crackles appreciated bilateral lower lobes, questionable Velcro-like CVS: S1-S2 positive, no murmurs or gallops Abdomen: Soft, nontender, nondistended, positive bowel sounds x4 Extremities: +2 pulses bilaterally radialis/ dorsalis pedis, no cyanosis, +1 pitting edema bilateral lower extremity Neuro: Awake alert oriented x3 Psych: Normal mood and affect G/U: No Damico Plan: Chest x-ray from today does not show any significant change, did show some worsening especially in the right lower part of the lung Patient has been getting lorazepam for anxiety, codeine cough syrup. He was very somnolent when I saw him. Hardly taking deep breaths and. Unfortunately he was not aware of how to use the incentive spirometry. I did explain to him how to use it. DC lorazepam CPAP can be considered nightly and as needed shortness of breath His oxygen requirement has gone up compared to yesterday unfortunately Another dose of Lasix will be given today IV Continue with antibiotics with atypical coverage for 5 days Keep O2 saturation between 90-92% Case was discussed with primary team Please note the above document was generated using voice recognition software. It may contain grammatical, syntax or spelling errors.Any formal questions or concerns about the content, text or information contained within the body of this dictation should be directly addressed to the provider for clarification. Subjective Patient seen and evaluated at bedside. He reports that he had a difficult night as he had limited rest. He did sleep a majority of the night and in upright chair. He reports his main complaint is ongoing cough which seems to disrupt his sleep and be concerning to him. He has dyspnea with exertion. No complaints of chest pain, however. Review of Systems 2 Review of Systems: As per subjective. Physical Exam 2 Physical Exam: VITAL SIGNS Vital signs and nursing notes were reviewed. GENERAL 73-year-old male appearing his stated age who is in no acute distress. Communicates well with provider and answers questions appropriately. LUNGS Chest wall evaluation demonstrates normal chest wall A:P diameter. Auscultation reveals weak inspiratory effort. Fine crackles. No wheezing. CARDIAC RRR with S1/S2. No murmur, rubs, or gallops appreciated. EXTREMITIES Nail clubbing not present. No peripheral cyanosis. No pretibial edema present. +3/5 radial palpated throughout. PSYCH A&Ox3 and cooperates fully with examiner. Pt is very pleasant and interacts well with examiner. Skin: no rashes, warm and dry Lymphatic: no cervical or axillary lymphadenopathy Results & Data Results & Data Vital Signs (Past 12 Hours) Vital Signs Temp Pulse Pulse Resp BP Pulse Ox O2 Del Method 12/12/23 07:50 Oxymask 12/12/23 07:42 36.8 C 76 20 123/62 92 Nasal Cannula 12/12/23 07:32 97 H 26 H 83 L Oxymask 12/12/23 07:00 76 12/12/23 04:18 36.9 C 95 H 18 115/63 91 Oxymask 12/12/23 00:52 87 12/11/23 22:57 36.8 C 82 18 116/66 92 Oxymask 12/11/23 22:41 92 Oxymask O2 Flow Rate 12/12/23 07:50 8 12/12/23 07:42 6.5 12/12/23 07:32 6.5 12/12/23 07:00 12/12/23 04:18 6.0 12/12/23 00:52 12/11/23 22:57 6.0 12/11/23 22:41 6.5 Laboratory Results 12/12/23 05:33 12/12/23 05:33 PG Care Time/CCT Total # of Minutes Spent Total Time Spent with Patient: Total time spent is greater than 50% in coordination of care (as documented) at patient's floor/unit and/or counseling patient: Coding Level of Care Code 41738 SUB INP/OBS CARE 3/50MIN Diagnoses Acute respiratory failure with hypoxia J96.01 Pneumonitis J98.4 Metastatic renal cell carcinoma to bone C79.51; C64.9
[2023-12-12] MEDS: FUROSEMIDE INJ 20 MG/2 ML VIAL IV ONE (11:19)
--- NOTE | 2023-12-12 12:06 | Hospitalist Progress Note ---
Date of Service December 12, 2023 Assessment & Plan (1) Acute respiratory failure with hypoxia: (2) Pneumonitis: (3) Acute pulmonary edema: (4) Metastatic renal cell carcinoma to bone: (5) Hypertension: Plan Pt is a 73-year-old male with history of metastatic renal cell carcinoma, with osseous and pulmonary hilar/mediastinal mets, hypertension, and other problems noted below presenting with shortness of breath and cough x 1 to 2 weeks. Acute respiratory failure with hypoxia, multifactorial Pulmonary edema Pneumonitis, secondary to immunotherapy Presence of mediastinal metastatic disease Pt presenting hypoxic Chest XRAY noting concern for pleural effusions CTA chest from 11/30 with diffuse ground glass opacities Echo with EF of 60 to 65%, grade 1 diastolic dysfunction, moderate LVH Lasix 40 mg IV daily Currently Keytruda on hold procalcitonin normal Pulmonology consulted, appreciate recs --switched to IV methylpred from po prednisone - recommending discontinuation of Keytruda -12/09/23: "Continue with diuretics. Continue with antibiotics with atypical coverage for 5 days. Continue with Solu-Medrol to 40 mg twice daily which will be approximately 1 Mg per KG. Keep O2 saturation between 90-92%" Continue Levaquin for possible bacterial pneumonia component given immunocompromised state Continue nebs 4 times daily, incentive spirometry, flutter valve Continue to monitor 12/11/23- patient had a 2 step today in anticipation of discharge. He required 9 L which is standing up and further requirement of 15 L with a few steps out of the room. Case discussed with pulmonology, advised getting limited echo to rule out PFO given the significant increase in oxygen requirement with ambulation. Also advised starting BiPAP as needed and at nighttime. Case discussed with patient and at bedside, patient agreeable to staying for further evaluation and management. bactrim PCP prophylaxis also ordered. 12/11- Echo with noted positive bubble study, suggestive of extracardiac shunt. Pulmonology discussed case with patient's and family member in the medical field. Continuing with IV steroids, Levaquin, pulmonary toilet at this time. Given patient's increasing need for oxygen and prior documentation of no intubation, CODE STATUS was addressed once more. Patient notes that he is now a full code and would like intubation and mechanical ventilation if needed with sedation. He was concerned about whether it would be painful. Continue to monitor at this time. Appreciate pulmonology recommendation Chronic Anemia Hgb currently 8.9 AM anemia panel noting iron deficiency IV Venofer x1 dose 200mg Continue to monitor Congestive Heart failure Chest XRAY concerning for cardiomegaly with CHF and pulmonary edema BNP elevated with downtrend Received 2 doses of IV Lasix 40mg daily, transitioned to po lasix 20mg daily Cardiology consulted, appreciate recs. Recommended/ stated the following: -"Cardiac assessment has demonstrated normal LV systolic function on serial testing Exam not consistent pulmonary edema or congestive heart failure Trivial lower extremity edema secondary to hypoalbuminemia and acute illness Recommendations: Treat hypoxia likely require oxygen on hospital discharge Discontinue IV furosemide Add oral furosemide 20 mg/day over hydrochlorothiazide for management of mild pedal edema. Hyponatremia may improve off hydrochlorothiazide" p.o. Lasix 20 mg daily added Metastatic renal cell carcinoma with osseous and pulmonary involvement Currently Keytruda on hold as per oncologist Dr. West Hypertension Patient reports blood pressure was on the lower side Holding losartan Diet: Regular DVT prophylaxis: heparin SQ CODE STATUS:FULL CODE pt would like intubation if needed Dispo: PT/OT ordered for further recs, home once medically stable Admission and Anticipated Discharge Date Admission Date: December 06, 2023 Subjective Patient was seen multiple times during the day. Initially having some trouble breathing with his coughing fits, oxy mask in place. Notes that he had an extensive discussion with pulmonology along with his family members. Later back at bedside to confirm CODE STATUS. Patient states that he does want to be full code and wants intubation with sedation. Asking about how painful it is. Review of Systems Review of Systems: All systems reviewed & are unremarkable except as noted in Subjective Physical Exam Physical Exam: General: Alert, oriented, coughing Psych: Appropriate mood and affect Neuro: No gross deficits while in bed HEENT: NC/AT CV: RRR Resp: Breath sounds without wheeze bilaterally, coughing during exam Abdomen: Soft, nontender Extremities: No edema in lower extremities bilaterally. Results & Data Results & Data Vital Signs (Past 12 Hours) Vital Signs Temp Pulse Pulse Resp BP Pulse Ox O2 Del Method 12/12/23 11:34 36.4 C L 76 20 119/65 93 Room Air 12/12/23 07:50 Oxymask 12/12/23 07:42 36.8 C 76 20 123/62 92 Nasal Cannula 12/12/23 07:32 97 H 26 H 83 L Oxymask 12/12/23 07:00 76 12/12/23 04:18 36.9 C 95 H 18 115/63 91 Oxymask 12/12/23 00:52 87 O2 Flow Rate 12/12/23 11:34 12/12/23 07:50 8 12/12/23 07:42 6.5 12/12/23 07:32 6.5 12/12/23 07:00 12/12/23 04:18 6.0 12/12/23 00:52
[2023-12-12] MEDS: PROMETHAZINE HCL 12.5 MG/10 ML UDP PO SCH (13:12)
[2023-12-12] MEDS ORDERED: hydrOXYzine HCl 25 MG TAB PO PRN (18:28)
[2023-12-12] MEDS ORDERED: ONDANSETRON INJ 2 MG/ML 2 ML VIAL IV PRN (18:29)
--- NOTE | 2023-12-12 18:43 | Communication Note ---
<Statement entered by Isabelle Lau PA-C - 12/14/23 00:54> Accidentally opened document for editing Date of Service: December 12, 2023 73-year-old male with history of metastatic renal cell carcinoma with with osseous and pulmonary hilar/mediastinal mets, HTN was seen and evaluated at bedside for acute respiratory distress upon request from my colleague Dr. Barnes. Patient was seen and examined, patient had mildly flushed appearance, reported right-sided chest pain which he can point to with finger (non reproducible on exam), reported nausea. During my exam, patient reported his nausea and chest pain are already improving, according to RN his flushed appearance is also on improving trend. EKG w/ no acute ST-T changes and QTc acceptable. Per RN, pulmonology reached out and recommended to go up on high flow oxygen. Patient is needing 35 to 40 L oxygen and saturating just above 90%. Patient does look anxious, no crackles or wheezing on auscultation. No labored breathing noted. Per patient, he was sitting up in chair on 9 L oxygen when he had some cough and he became acutely short of breath, saturation dropped at the time and high flow was increased to 15 L without much improvement. Finally it was needed to be bumped up to 35-40 L with saturation reaching just above 90%. Will get stat troponin, stat chest x-ray, Zofran for nausea, Vistaril for anxiety. Patient's current status and plan of care coordinated with patient's primary attending Dr. Barnes over the Phone, no further recommendation at the moment. Spoke w/ ICU attending, given worsening resp distress, transfer to ICU for close monitoring.
--- NOTE | 2023-12-12 19:04 | Communication Note ---
Date of Service: December 12, 2023 Notified by nursing that pt with persistent hypoxia and new chest pain. Doctor computational chemist, Dr Ravinder Alvarez was notified and he presented to bedside to further evaluate the patient. Case also discussed with backend developer Dr Lopez who recommended putting the pt on hiFlo 35L 50% and bipap if pt still having breathing difficulties. I was updated on pt's progress by Dr Alvarez who advised that pt cannot tolerate the bipap due to anxiety. This was relayed to Dr Lopez who recommended transfer to the ICU. ICU transfer orders were placed.
--- NOTE | 2023-12-12 19:29 | XRay Report ---
SINGLE VIEW CHEST CLINICAL HISTORY: Respiratory distress FINDINGS: An AP, portable, upright chest radiograph is compared to study performed earlier the same d ay 12/12/2023 and correlated with chest CT dated 12/01/2023. The heart is enlarged. There is pulmonary vascular congestion. There is diffuse interstitial thickening with associated airspace opacities, gre atest in the lower lobes. Trace pleural effusions are suspected. No pneumothorax is seen. The skeleta l structures are osteopenic. The bony thorax is grossly intact. IMPRESSION: 1. Cardiomegaly with pulmonary vascular congestion. 2. There is increasing interstitial thickening and bilateral airspace opacities as compared to today' s earlier study. The appearance favors worsening pulmonary edema. Correlate clinically for evidence o f a superimposed pneumonia and/or pulmonary hemorrhage. Radiographic follow-up to resolution is recom mended. ACT 112: Negative or not required by law. Electronically signed by: Jim Griffin M.D. 12/12/2023 7:28 PM
[2023-12-12] MEDS ORDERED: STAT IV Infusion **Titration per Protocol STA (20:15)
--- NOTE | 2023-12-12 20:32 | Communication Note ---
Date of Service: December 12, 2023 Mr. Alston is a 73YOM admitted due to Keytruda-induced pneumonitis. Pulmonology team has been on board. Patient receiving Solumedrol TID. This afternoon patient developed increasing oxygen requirement, chest pain, and anxiety. He was placed on HFNC and transferred to ICU for continuation of care. He awakens to voice, alert and oriented and in no acute distress. He appears fatigued. He is now requiring 50L/0.75 for SpO2 90% or greater. Air movement is equal in all lung durand, though diffusely diminished. No active wheezing. No other adventitious sounds. +1 pedal edema with none above ankles, likely dependent in nature. Remainder of exam is grossly unremarkable. I've discussed with patient and at bedside extensively. I do not believe that he requires emergent mechanical ventilation at this time, though he will benefit from positive pressure ventilation in the form of NIV. Given his degree of anxiety and inability to tolerate NIV in past, will start him on Precedex infusion. Avoid respiratory suppressant medications. Patient's , Yulia, states that patient is "extremely reliant" on Tylenol with codeine every 4 hours for his cough. He has an alarm set on his phone to request these medications when they are due. He was told we are holding this for now and starting the Precedex. He is now requesting it due to headache rather than the cough. I will provide IV Ofirmev now. is also asking he be started on IVF. Appears to have pulmonary edema on CXR and is currently being gently diuresed QD. He appears euvolemic at this juncture. Will hold on IVF, not indicated at this time. Plan to start Precedex. Continue HFNC and start NIV as tolerated. Patient is at high risk for intubation overnight and will be monitored closely. Full Consult to follow. Patient, family, and RN aware of plan. Addendum 0230: Despite adequate anxiolytic, patient is persistently tachypneic. He now appears to be in respiratory distress. He does awaken to voice. He has periods with low lung volumes despite BIPAP support. I doubt he would be able to maintain this breathing pattern for much longer. I do believe it is safest to protect his airway and place him on mechanical ventilation tonight. Discussed at length with patient's , Yulia, how mechanical ventilation is not a treatment itself, but a bridge to allow his body to recover. She had questions regarding how long he may be on the ventilator. I explained to her that it is difficult to say. His degree of lung injury and inflammation are significant, and he may well be on the ventilator for a minimum of multiple days. She has willingly consented to intubation. Dr. Diego from the ED has kindly agreed to be present to assist. Addendum 0400: Patient intubated without incident. See procedure note for details. He remained hypoxemic as low as 84% despite PEEP 12 and FiO2 100%. He slowly came up to 90%. Coding Level of Care Code 62774 CRITICAL CARE EA ADD 30M Time Spent (min) 20
[2023-12-12] MEDS: dexMEDEtomidine 200 MCG/50 ML BAG IV SCH (20:48)
[2023-12-12] MEDS: ACETAMINOPHEN 1,000 MG/100 ML VIAL IV STA (21:46)
[2023-12-12] MEDS ORDERED: GLUCOSE 10 TAB/TUBE PO PRN (21:50)
[2023-12-12] MEDS ORDERED: CARBOHYDRATES FOR HYPOGLYCEMIA PO PRN (21:50)
[2023-12-12] MEDS ORDERED: GLUCOSE 40% GEL 15 GM TUBE PO PRN (21:50)
[2023-12-12] MEDS ORDERED: GLUCAGON FOR INJ 1 MG VIAL SQ PRN (21:50)
--- NOTE | 2023-12-12 22:37 | Critical Care Consultation ---
Date of Consultation December 12, 2023 Assessment & Plan (1) Acute respiratory failure with hypoxia: As below (2) Pneumonitis: As below (3) Metastatic renal cell carcinoma to bone: Management per Oncology. Keytruda on hold currently. Plan Neurologic: Avoid sedating medications Precedex infusion for NIV compliance APAP PRN pain/fever Cardiovascular: MAP goal > 65mmHg Appears euvolemic, continue furosemide 20mg PO QD Extracardiac shunt on TTE Continue antihypertensives as clinically feasible Continue statin Troponin negative TTE 12/07/23 LVEF 60-65%, grade I diastolic dysfxn, moderate LVH, RV WNL Respiratory: Diffuse GGO on CT, multiple pulmonary nodules CPAP overnight to improve aeration, high risk for intubation CXR in AM Precedex to augment NIV compliance Nebs ordered Blood gas pending IS/Flutter when not on NIV Solumedrol TID Per Dr. Lopez Abx as below Gastrointestinal/Nutrition: Diet: NPO for now SUP: PPI Bowel regimen: Ordered Zofran PRN Endocrine: BG 140-180 per SCCM guidelines Methylprednisolone as ordered Infectious Disease: Continue PJP PPX Consider additional abx coverage Trend fever curve, follow culture data RVP negative Renal/Electrolytes: Repeat labs now [place] catheter, if patient insistent on standing to urinate we will place alvarez catheter DVT PPX: SQH Remainder per Dr. Lopez. Please see his addendum for details. History of Present Illness Reason for Consultation: Acute hypoxemic respiratory failure Attending Physician: Abdirizak Mcgarry MD History of Present Illness Mr. Alston is a 73YOM with a history of metastatic RCC on Keytruda, BPH s/p TURP, hypertension, dyslipidemia, anxiety who was admitted to [facility] on the afternoon of 12/06/2023 due to 2 weeks of shortness of breath and dry cough. Outpatient CT with GGO c/w pneumonitis. Started on steroids and Keytruda stopped per Oncology team. On admission patient was requiring 2L via NC. Dr. Lopez evaluated patient and increased steroid to 1mg/kg. Remained on antibiotics with atypical coverage. Subsequently requiring 5L NC. Patient being gently diuresed due to pulmonary edema on CXR. He was started on PJP prophylaxis. Hypoxia worsened throughout the day on 12/12/2023. Patient transferred to ICU for continuation of care. Per report, patient insisting on ambulating to bathroom on med/surg floor. He became persistently hypoxemic at that time. Patient states to me he cannot urinate sitting down. Seen in ICU 112. He awakens to voice. Oriented x3. Tachypneic though without acute distress. SpO2 as low as 81% on 40L/0.6. I increased this to 50L/0.75 with consistent improvement to > 90%. at bedside with multiple concerns. See my communication note for details. Allergies Allergy/AdvReac Type Severity Reaction Status Date / Time Penicillins Allergy Intermediate Rash Verified 12/06/23 17:43 Home Medications Medication Instructions Recorded Confirmed Type aspirin 81 mg chewable tablet 81 mg PO DAILY 10/27/22 12/06/23 History bupropion HCl 100 mg tablet,12 hr 100 mg PO BID 10/27/22 12/06/23 History sustained-release (Wellbutrin SR) cholecalciferol (vitamin D3) 100 100 mcg PO DAILY 10/27/22 12/06/23 History mcg (4,000 unit) tablet ferrous sulfate 325 mg (65 mg 325 mg PO Q OTHER DAY 10/27/22 12/06/23 History iron) tablet,delayed release finasteride 5 mg tablet 5 mg PO DAILY 10/27/22 12/06/23 History losartan 25 mg tablet (Cozaar) 25 mg PO DAILY 10/27/22 12/06/23 History multivitamin 1 tab PO DAILY 10/27/22 12/06/23 History simvastatin 10 mg tablet 10 mg PO DAILY 10/27/22 12/06/23 History ondansetron HCl 8 mg tablet 8 mg PO Q6H PRN Nausea And Vomiting 11/09/22 12/06/23 History prochlorperazine maleate 10 mg 10 mg PO Q6H PRN Nausea And 11/09/22 12/06/23 History tablet (Compazine) Vomiting calcium carbonate (Calcium 500) 500 mg PO BID 05/23/23 12/06/23 History mecobalamin (vitamin B12) 1,000 1,000 mcg PO BID 05/23/23 12/06/23 History mcg chewable tablet acetaminophen 300 mg-codeine 30 mg 2 tab PO Q6H PRN Pain 12/06/23 12/06/23 History tablet albuterol sulfate 90 mcg/actuation 2 puff inhalation Q6H PRN Dyspnea 12/06/23 12/06/23 History aerosol inhaler hydrochlorothiazide 12.5 mg tablet 12.5 mg PO DAILY 12/06/23 12/06/23 History levothyroxine 25 mcg tablet 25 mcg PO DAILY 12/06/23 12/06/23 History prednisone 10 mg tablet 60 mg PO DAILY 12/06/23 12/06/23 History Patient History Medical History MDD (major depressive disorder) Lyme disease Left inguinal hernia Hyperlipidemia BPH with elevated PSA Bloody stool COVID-19 Surgical History (Updated 10/27/22 @ 14:10 by Summer Escobedo RN) S/P TURP (transurethral resection of prostate) Hx of prostate biopsy H/O colonoscopy H/O hernia repair Family History (Updated 10/27/22 @ 13:23 by Summer Escobedo, RN) Mother Cancer colon and metastatic liver Father Cancer Lung Sister Cancer Lung Sister Cancer Kidney Social History (Updated 10/27/22 @ 13:25 by Summer Escobedo RN) Smoking Status: Never smoker Second Hand Exposure: Yes; Hx Alcohol Use: Yes Alcohol type: beer Alcohol Intake Frequency: 2-3 x/Week Hx Substance Use: No Preferred Language: Korean Communication Ability: Effective Visual Impairment: No Limitations Hearing Ability: Normal Entertainment & Media Correspondent Required: No Beliefs That Will Affect Care: None Current Living Situation: Spouse current occupational status: retired current occupation: IT Feels Safe at Home: Yes Diet: regular Assistive Devices: None Review of Systems Constitutional: + fatigue, + weakness and + anorexia; no fever and no chills Eyes: no problem reported Ear, Nose, Mouth, Throat: + problem reported (dry cough) Respiratory: + cough and + dyspnea Cardiovascular: no problem reported Gastrointestinal: no problem reported Genitourinary: + urinary hesitancy Musculoskeletal: no problem reported Integumentary: no problem reported Neurologic: no problem reported Psychiatric: + anxiety Endocrine: no problem reported Physical Exam Constitutional: + thin and cooperative; no acute distres s Eyes: PERRL, conjunctivae normal, anicteric sclerae ENMT: Mouth: + dry oral mucous membranes Neck: trachea midline, no thyromegaly Respiratory: + cough, + tachypneic and symmetric ches t movement; no respiratory distress Auscultation: + diminished lung sounds Cardiovascular: RRR, no murmur, no edema Extremities: + pedal edema Gastrointestinal (Abdomen): normal bowel sounds, soft, nontender, no hepatosplenomegaly Skin: no rashes, warm and dry Neurologic: moves all extremities and awake; no focal motor deficits Psychiatric: Orientation: oriented x 3 Affect: + anxious affect Results & Data Results & Data Vital Signs (Past 12 Hours) Vital Signs Temp Pulse Pulse Resp BP BP Pulse Ox 12/12/23 22:30 85 38 H 96 12/12/23 22:21 85 26 H 94 12/12/23 22:15 83 46 H 95 12/12/23 22:00 80 33 H 96 12/12/23 22:00 120/68 12/12/23 22:00 120/68 12/12/23 22:00 120/68 12/12/23 21:45 80 28 H 94 12/12/23 21:36 89 44 H 93 12/12/23 21:24 89 41 H 92 12/12/23 21:03 84 36 H 92 12/12/23 21:00 150/78 H 12/12/23 21:00 150/78 H 12/12/23 21:00 150/78 H 12/12/23 20:57 88 39 H 89 L 12/12/23 20:48 85 39 H 93 12/12/23 20:21 85 29 H 97 12/12/23 20:18 90 28 H 97 12/12/23 20:00 152/79 H 12/12/23 20:00 87 38 H 84 L 12/12/23 19:57 98 H 23 89 L 12/12/23 19:50 137/96 12/12/23 19:42 86 17 97 12/12/23 19:18 86 32 H 92 12/12/23 19:00 84 34 H 12/12/23 18:31 93 H 12/12/23 18:21 76 30 H 91 12/12/23 18:07 36.9 C 79 22 123/76 94 12/12/23 16:05 12/12/23 16:00 12/12/23 15:59 36.7 C 88 20 151/82 H 93 12/12/23 15:04 90 12/12/23 14:22 97 H 30 H 90 12/12/23 14:00 97 H 12/12/23 13:29 90 26 H 90 12/12/23 13:00 88 L 12/12/23 11:34 36.4 C L 76 20 119/65 93 Pulse Ox O2 Del Method O2 Del Method O2 Flow Rate O2 Flow Rate FiO2 12/12/23 22:30 12/12/23 22:21 12/12/23 22:15 12/12/23 22:00 12/12/23 22:00 12/12/23 22:00 12/12/23 22:00 12/12/23 21:45 12/12/23 21:36 12/12/23 21:24 12/12/23 21:03 12/12/23 21:00 12/12/23 21:00 12/12/23 21:00 12/12/23 20:57 12/12/23 20:48 12/12/23 20:21 12/12/23 20:18 12/12/23 20:00 12/12/23 20:00 12/12/23 19:57 12/12/23 19:50 12/12/23 19:42 12/12/23 19:18 12/12/23 19:00 12/12/23 18:31 12/12/23 18:21 High Flow Nasal Cannula 40 60 12/12/23 18:07 High Flow Nasal Cannula 15 12/12/23 16:05 High Flow Nasal Cannula 9 12/12/23 16:00 94 Free Flow/Blow-by 9 12/12/23 15:59 Nasal Cannula 10 12/12/23 15:04 Nasal Cannula 10 12/12/23 14:22 60 12/12/23 14:00 12/12/23 13:29 Nasal Cannula 10 12/12/23 13:00 Nasal Cannula 6 12/12/23 11:34 Nasal Cannula 6.5 Medications Administered See MAR Coding Level of Care Code 12607 CRITICAL CARE 1ST 30-74M Diagnoses Acute respiratory failure with hypoxia J96.01 Pneumonitis J98.4 Metastatic renal cell carcinoma to bone C79.51; C64.9 Time Spent (min) 42
[2023-12-12 22:41] LABS: iSTAT Allen Test Pass; iSTAT Art Bld Gas pCO2 Correct 38 mmHg (35-46); iSTAT Art Bld Gas pH Corrected 7.501 (7.35-7.45); iSTAT Arterial Blood Gas HCO3 30 meg/L (19-24); iSTAT Arterial Blood Gas pCO2 37 mmHg (35-46); iSTAT Arterial Blood Gas pH 7.51 (7.35-7.45); iSTAT Arterial Blood Gas pO2 72 mmHg (80-95); iSTAT Arterial Blood Gas pO2 C 76; iSTAT Carbon Dioxide 31 mmol/L (24-31); iSTAT Hematocrit 27 % (42-52); iSTAT Hemoglobin 9.2 g/dl (14.0-18.0); iSTAT Potassium 4.1 mmol/L (3.3-5.0); iSTAT Site R Radial; iSTAT Sodium 127 mmol/L (135-144)
[2023-12-12 23:15] LABS: BUN Creatinine Ratio 35.5 (10-20); Calcium 8.9 mg/dl (8.6-10.3); Creatinine Clr Calc Pharmacy 53.1 ml/min; Potassium 4.4 mmol/L (3.5-5.1)
[2023-12-12] MEDS: ICU Protocol for HYPERglycemia SCH (23:45)
--- NOTE | 2023-12-13 04:00 | Procedure Note ---
Procedure Note Date of Service December 13, 2023 INTUBATION PROCEDURE NOTE: APC: Isabelle Lau PA-C. Attending: Jessica Carbajal time-out was completed verifying correct patient, procedure, site, positioning. Patient was evaluated and required intubation for acute hypoxemic respiratory failure. Sedative agent used: Ketamine 100mg, Versed 2mg, Fentanyl 100mcg Paralysis agent used: Rocuronium 75mg []Verbal consent given by patient's . The patient was prepared in the appropriate fashion. Sedation was achieved utilizing Fentanyl, Ketamine, and Versed, per Dr. Diego administration. The patient was easily ventilated using [id number] to achieve adequate oxygenation. A 7.5 Indonesian endotracheal tube was placed utilizing video laryngoscopy to 24 cm at the lip. The stylette was removed and balloon was inflated with 10mL of air. Appropriate Colorimetric change was appreciated. Bilateral breath sounds were heard without air sounds in the abdomen. Airway findings: Anterior Dr. Diego was present for the entire procedure. Post Intubation Chest X-ray confirms placement without pneumothorax. Patient tolerated the procedure well and there were no immediate complications. [facility] Procedure Codes (Charges) Indication for Procedure Indication for procedure: Acute hypoxemic respiratory failure Coding Additional Codes Date of Service (PG.SURGERY)
[2023-12-13] MEDS ORDERED: PROPOFOL BOLUS FROM BAG IV PRN (04:01)
[2023-12-13] MEDS ORDERED: STAT IV Infusion **Titration per Protocol STA ×2 (04:01→16:04)
[2023-12-13] MEDS ORDERED: fentaNYL BOLUS from BAG IV PRN (04:02)
[2023-12-13] MEDS: RAPID SEQUENCE INDUCTION BAG ONE (04:03)
[2023-12-13] MEDS ORDERED: levoFLOXacin/D5W 500 MG/100 ML BAG IV SCH (04:15)
[2023-12-13 04:40] LABS: iSTAT Allen Test Pass; iSTAT Art Bld Gas pCO2 Correct 57 mmHg (35-46); iSTAT Art Bld Gas pH Corrected 7.364 (7.35-7.45); iSTAT Arterial Blood Gas HCO3 32 meg/L (19-24); iSTAT Arterial Blood Gas pCO2 51 mmHg (35-46); iSTAT Arterial Blood Gas pO2 114 mmHg (80-95); iSTAT Arterial Blood Gas pO2 C 132; iSTAT Carbon Dioxide 33 mmol/L (24-31); iSTAT FiO2 100 %; iSTAT Hematocrit 28 % (42-52); iSTAT Hemoglobin 9.5 g/dl (14.0-18.0); iSTAT Potassium 4.6 mmol/L (3.3-5.0); iSTAT Site R Radial; iSTAT Sodium 127 mmol/L (135-144)
[2023-12-13] MEDS: PROPOFOL IV EMULSION 10 MG/ML 100 ML VIAL IV ONE (04:44)
[2023-12-13] MEDS: propofoL 1,000 MG/100 ML VIAL IV SCH (04:46)
[2023-12-13] MEDS: fentaNYL citrate 2,500 MCG/250 ML BAG IV SCH (04:47)
[2023-12-13 05:23] LABS: Hematocrit (blood only) 26.9 % (42.0-52.0); Hemoglobin 8.5 g/dl (14.0-18.0); Mean Corpuscular Hemoglobin 24.5 pg (25.0-34.0); Mean Corpuscular Hgb Conc 31.6 g/dL (32.0-36.0); Mean Corpuscular Volume 77.5 fL (80.0-100.0); Mean Platelet Volume 9.5 fL (9.4-12.4); Platelet Count 415 K/uL (130-400); RDW Coefficient of Variation 18.7 % (11.5-14.5); RDW Standard Deviation 51.7 fL (36.4-46.3); Red Blood Count 3.47 M/uL (4.70-6.10); White Blood Count 18.81 K/ul (4.8-10.8)
[2023-12-13 05:24] LABS: Albumin Level 2.5 gm/dl (3.4-5.0); BUN Creatinine Ratio 43.1 (10-20); Bilirubin Direct 0.3 mg/dl (0-0.2); Bilirubin,Total 0.7 mg/dl (0.2-1.0); Creatinine Clr Calc Pharmacy 58.9 ml/min; Magnesium 2.3 mg/dl (1.7-2.4); Phosphorus 4.5 mg/dl (2.5-4.9); Potassium 4.7 mmol/L (3.5-5.1); Total Protein 5.8 gm/dl (6.0-8.3)
[2023-12-13 05:51] LABS: Basophils # (auto) 0.01 K/uL (0.00-0.20); Basophils % (auto) 0.1 %; Immature Granulocytes % (auto) 0.5 %; Lymphocytes % (auto) 0.5 %; Monocytes # (auto) 0.14 K/uL (0.11-0.59); Monocytes % (auto) 0.7 %; Neutrophils # (auto) 18.46 K/uL (1.40-6.50); Neutrophils % (auto) 98.2 %; Polychromasia 2+; Rouleaux 1+
--- NOTE | 2023-12-13 07:06 | XRay Report ---
XR chest 1V portable HISTORY: 73 years-old Male f/u acute shortness of breath COMPARISON: Chest radiograph of same day at 3:44 AM TECHNIQUE: AP view of the chest FINDINGS: Endotracheal tube overlies the midline, 4.1 cm superior to the krystal. Enteric tube courses below the diaphragm out of the field of view. Diffuse bilateral reticulonodular opacities. No pneumothorax. De creased size of the pleural effusions which are now trace. There is improved aeration of the lungs, n otably within the bases. Bones appear grossly intact. IMPRESSION: 1. Endotracheal and enteric tube positioning as above. 2. Diffuse reticulonodular opacities of the lungs redemonstrated with improved aeration of the lung b ases. 3. Trace pleural effusions. ACT 112: Negative or not required by law. The above report was generated using voice recognition software. It may contain grammatical, syntax o r spelling errors. Electronically signed by: John Jimnéez M.D. 12/13/2023 7:05 AM
[2023-12-13] MEDS ORDERED: INSULIN ASPART PER UNIT CHARGE SC SCH (07:30)
--- NOTE | 2023-12-13 07:37 | Ultrasound Report ---
ULTRASOUND RIGHT UPPER QUADRANT ABDOMEN CLINICAL HISTORY: Extracardiac shunt. COMPARISON STUDY: PET/CT dated 05/16/2023. TECHNIQUE: Real-time, grayscale, and color flow sonography of the right upper quadrant of the abdomen was performed. Images are reviewed in the transverse and longitudinal planes. FINDINGS: Liver: The liver is normal in size and echotexture. There is no intrahepatic biliary ductal dilatatio n. The main portal vein is patent. Gallbladder: The gallbladder is normal in appearance. No gallstones are identified. There is no gallb ladder wall thickening or pericholecystic fluid. A sonographic Wei's sign is reportedly absent. Th e common bile duct measures up to 0.5 cm in diameter. Pancreas: Not visualized due to overlying bowel gas. Right kidney: Survey images of the right kidney demonstrate normal size and echotexture. There is no hydronephrosis. Ascites: None. IMPRESSION: 1. No acute sonographic abnormality is identified in the right upper quadrant. No gallstones are seen . 2. Nonvisualization of the pancreas. ACT 112: Negative or not required by law. Electronically signed by: Jim Griffin M.D. 12/13/2023 7:36 AM
--- NOTE | 2023-12-13 07:41 | XRay Report ---
SINGLE VIEW CHEST CLINICAL HISTORY: Respiratory failure. Intubation FINDINGS: An AP, portable, supine chest radiograph is compared to study performed earlier the same da y 12/12/2023 and correlated with chest CT dated 12/01/2023. An endotracheal tube has been placed. The t ip projects approximately 3 cm above the krystal. An enteric tube has been placed. This projects below the diaphragm and the tip is not visualized. The heart is enlarged. There is pulmonary vascular hilda estion. There is diffuse interstitial thickening with associated airspace opacities, greatest in the lower lobes. Small pleural effusions are noted. No pneumothorax is seen. The skeletal structures are osteopenic. The bony thorax is grossly intact. IMPRESSION: 1. Endotracheal and enteric tubes have been placed as above. 2. Cardiomegaly with evidence of congestive failure. 3. Interstitial thickening and multifocal airspace opacities are similar to today's earlier examinati on. Radiographic follow-up to resolution is recommended. 4. Small pleural effusions. ACT 112: Negative or not required by law. Electronically signed by: Jim Griffin M.D. 12/13/2023 7:39 AM
[2023-12-13] MEDS: OPTIRAY 320 125ml IV ONE (08:38)
[2023-12-13] MEDS: DEXTROSE 50% 50 ML SYRINGE IV PRN (09:31)
--- NOTE | 2023-12-13 09:40 | CT Scan Report ---
CT ANGIOGRAM OF THE CHEST CLINICAL HISTORY: Dyspnea. Respiratory failure. COMPARISON STUDY: Chest x-ray dated 12/13/2023. Chest CT dated 12/01/2023. PET/CT dated 05/16/2023. TECHNIQUE: Following the IV administration of 120 cc of Optiray 320, CT angiogram of the chest was pe rformed from the upper abdomen to the thoracic inlet utilizing the pulmonary embolus protocol. Images are reviewed in the axial, sagittal, and coronal planes. 3-D MIPS images are created and assessed. I V contrast was administered without complication. A dose lowering technique was utilized adhering to the principles of ALARA. The examination is degraded by motion artifact. There is also streak artifa ct from the left arm which could not be elevated above the chest. FINDINGS: Thyroid: Imaged portions of the thyroid gland are normal in size and attenuation. Thoracic aorta: There is mild atherosclerotic calcification of the thoracic aorta, which is normal in caliber and demonstrates standard 3-vessel arch anatomy. No dissection is seen. Pulmonary vasculature: The pulmonary trunk is normal in caliber. There are no filling defects identif ied in main, lobar, or proximal segmental pulmonary branches to suggest pulmonary embolus. Heart: The heart is mildly enlarged and without pericardial effusion. Lungs and pleural spaces: Evaluation of the lung parenchyma is severely degraded by motion artifact. An endotracheal tube is in place and terminates above the krystal. Airspace consolidation is seen at t he lung bases. No pleural effusion is seen. Miliary micronodular area is suggested throughout both dario ngs with groundglass opacities and moderate lobular septal thickening. Mediastinum: Periaortic metastases in the lower mediastinum on images #51 and #54 measuring up to 1.4 cm. A periaortic metastasis on image #137 measures up to 1.6 cm. An AP window metastasis on image # 153 measures up to 1.6 cm. Sally: Clear. Axillae: There is no axillary lymphadenopathy. Upper abdomen: An enteric tube extends below the diaphragm into the stomach. The tip is not visualize d. A large left renal mass is partially visualized. This measures at least 7.5 cm in length. A left p eriaortic naldo metastasis is partially visualized on image #1 and measures up to 3.4 cm. Enlarged re trocrural metastases measure up to 1.3 cm. Skeletal structures: The skeletal structures are osteopenic. Degenerative change and hyperkyphosis is seen in the thoracic spine. Arthritic changes noted in the shoulders. There is a large osteolytic me tastasis in the right scapula seen on axial image #245. IMPRESSION: 1. Significantly streak and motion compromised examination. 2. There is no evidence of central, embolus in the main, lobar, or proximal segmental pulmonary arter ies. Evaluation of the segmental and subsegmental branches is significantly degraded by motion artifa ct. 3. Airspace consolidation is seen at both lung bases and favors pneumonia/aspiration pneumonitis. Cli nical correlation will be required and radiographic follow-up to resolution is recommended. 4. Cardiomegaly, likely with evidence of congestive failure. 5. Miliary micronodularity is seen throughout both lungs with corresponding groundglass change. This could be related to an infectious/inflammatory pneumonitis, pulmonary hemorrhage, pulmonary edema, a hypersensitivity reaction, or less likely diffuse metastatic disease. Clinical correlation will be es sential. This has significantly progressed from the 12/01/2023 PET examination. 6. Endotracheal and enteric tubes as above. 7. A large left renal mass and retroperitoneal/retrocrural lymphadenopathy is partially imaged. There is also pathologic/metastatic mediastinal lymphadenopathy. This is similar to 12/01/2023 PET examinat ion. 8. Right scapular metastasis. 9. Additional findings as above. ACT 112: Negative or not required by law. Electronically signed by: Jim Griffin M.D. 12/13/2023 9:37 AM
--- NOTE | 2023-12-13 11:00 | Hospitalist Progress Note ---
Date of Service December 13, 2023 Assessment & Plan (1) Acute respiratory failure with hypoxia: (2) Pneumonitis: (3) Acute pulmonary edema: (4) Metastatic renal cell carcinoma to bone: (5) Hypertension: Plan Pt is a 73-year-old male with history of metastatic renal cell carcinoma, with osseous and pulmonary hilar/mediastinal mets, hypertension, and other problems noted below presenting with shortness of breath and cough x 1 to 2 weeks. 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 He was started on steroid for Keytruda induced pneumonitis. His oxygen requirement gradually progressed. Patient was intubated and mechanically ventilated in the morning of 12/13/2023. CTA chest on 12/12 -no PE. Airspace consolidation is seen in both lungs in favors pneumonia/aspiration pneumonia. Cardiomegaly with evidence of congestive failure. Miliary micronodularity seen throughout the both lung with corresponding groundglass opacity. Mechanical ventilation and sedation as per ICU On IV Solu-Medrol 40 mg every 8 hours Started on Levaquin 750 mg once a day Chronic Anemia Hgb currently 8.9 AM anemia panel noting iron deficiency monitor for now Acute on Chronic Diastolic Heart failure Chest XRAY concerning for cardiomegaly with CHF and pulmonary edema BNP elevated with downtrend Received 2 doses of IV Lasix 40mg daily, transitioned to po lasix 20mg daily Cardiology consulted,. Recommended/ stated the following: -"Cardiac assessment has demonstrated normal LV systolic function on serial testing Exam not consistent pulmonary edema or congestive heart failure Trivial lower extremity edema secondary to hypoalbuminemia and acute illness Recommendations: Treat hypoxia likely require oxygen on hospital discharge Discontinue IV furosemide Add oral furosemide 20 mg/day over hydrochlorothiazide for management of mild pedal edema. Hyponatremia may improve off hydrochlorothiazide" p.o. Lasix 20 mg daily added Metastatic renal cell carcinoma with osseous and pulmonary involvement Currently Keytruda on hold as per oncologist Dr. West Hypertension Blood pressure was on the lower side Holding losartan Diet: Regular DVT prophylaxis: heparin SQ CODE STATUS:FULL CODE Dispo: critically sick, admitted to ICU Time spent evaluating patient, direct bedside care, chart review, placing orders, interpretation of diagnostic studies and family members, as well as other required patient management activities is 50 minutes Please note the above document was generated using voice recognition software. It may contain grammatical, syntax or spelling errors. Any formal questions or concerns about the content, text or information contained within the body of this dictation should be directly addressed to the provider for clarification Admission and Anticipated Discharge Date Admission Date: December 06, 2023 Subjective Patient was transferred overnight to ICU for increasing respiratory distress. He was intubated and is currently on mechanical ventilation He is requiring FiO2 of 100% Review of Systems Review of Systems: Unobtainable due to reduced consciousness Physical Exam Physical Exam: Constitutional: Mechanically ventilated and sedated. Respiratory: Bilateral mechanical breath sound Cardiovascular: RRR, no murmur, no edema Vessels: no JVD or carotid bruit Chest: normal inspection of chest Abdomen: Soft, bowel sound present. Neurologic: Sedated Results & Data Results & Data Vital Signs (Past 12 Hours) Vital Signs Pulse Pulse Resp Pulse Ox O2 Del Method FiO2 12/13/23 07:40 86 26 H 97 100 12/13/23 03:45 76 31 H 91 100 12/13/23 01:51 63 40 H 94 BiPAP 60 12/12/23 23:04 84 41 H 96 70
[2023-12-13] MEDS ORDERED: ACETAMINOPHEN SUSP 325 MG/10.15 ML UDC PO PRN (11:08)
--- NOTE | 2023-12-13 11:33 | Procedure Note ---
Procedure Note Date of Service December 13, 2023 Procedure: Arterial Line Placement Attending: Dr. Lopez APC: David Araiza PA-C Indication: Hemodynamic monitoring Anesthesia: Lidocaine 1% Emergent Consent implied in the setting of clinical deterioration and need for close hemodynamic monitoring, ABG monitoring, frequent lab draws, etc. A time-out was completed verifying correct patient, procedure, site, positioning, and implant(s) or special equipment if applicable. Angel Luis's test was performed to ensure adequate perfusion. Patient's RIGHT wrist was prepped and draped in the usual sterile fashion. Ultrasound guidance was used to aid needle placement. A 20g Arrow arterial line was introduced into the RIGHT Radial artery. Catheter was threaded, and the needle was removed with appropriate blood return. Good waveform was observed. The patient tolerated the procedure well. Confirmation of placement with ultrasound. Blood Loss: Minimal Complications: None Procedural Ultrasound Guidance: Procedure Date: 12/13/2023 Indication: Hemodynamic Monitoring, Frequent ABGs/Lab draws. Attending: Dr. Lopez APC: David Araiza PA-C Artery Identified: YES Line confirmed in Artery with ultrasound: YES Complications: NONE Patient tolerated procedure: [facility] [place] Procedure Codes (Charges) Tubes, Drains, and Vasc Access Procedure 1: Tubes, Drains, and Vasc Access: [id number] Arterial Cath/Cannulation Sampling/Monitoring/Transfusion Coding CPT Codes Tubes, Drains, and Vasc Access - Tubes, Drains, and Vasc Access: [id number] Arterial Cath/Cannulation Sampling/Monitoring/Transfusion ([id number]) Additional Codes Date of Service (PG.SURGERY)
[2023-12-13] MEDS: ACETAMINOPHEN 1,000 MG/100 ML VIAL IV PRN (11:40)
[2023-12-13] MEDS: MULTI VIT W/MINERALS LIQUID 15 ML UDC PO SCH (11:42)
[2023-12-13] MEDS: PANTOprazole 40 MG in SYRINGE BID IV SCH (11:43)
[2023-12-13] MEDS: buPROPion HCl 100 MG TABLET PO SCH (11:43)
[2023-12-13] MEDS: levoFLOXacin/D5W 750 MG/150 ML BAG IV SCH (11:43)
--- NOTE | 2023-12-13 13:58 | Critical Care Progress Note ---
Date of Service December 13, 2023 Assessment & Plan (1) Acute respiratory failure with hypoxia: Plan: As below (2) Pneumonitis: Plan: As below (3) Metastatic renal cell carcinoma to bone: Plan: Management per Oncology. Keytruda on hold currently. Plan Reason Critically Ill: 73-year-old male with a history of renal cell carcinoma with metastatic spread with lung injury likely in the setting of checkpoint inhibitor pneumonitis. Patient went into respiratory distress last evening and required endotracheal intubation. NEURO - * CAM ICU: Unable to assess secondary to sedation. * Sedation: Propofol * Pain: Fentanyl CARDIAC/VASCULAR - * Normotensive currently. * Receiving daily Lasix. Would prefer patient run on the sawdust drier side in the setting of pneumonitis possible contribution to the pulmonary aspect. * Monitor on telemetry. RESPIRATORY - -- Acute hypoxic respiratory failure Likely secondary to pneumonitis from Keytruda It will be classified as grade 3- 4 pneumonitis and it is recommended to discontinue Keytruda Negative for SARS Cov-2, influenza A/B and RSV on 12/06/2023 Procalcitonin 0.21 BNP 138 --> 44--> 60 Recommendation for grade 3-grade 4 pneumonitis is discontinuation of Keytruda and giving Solu-Medrol 1-2 mg/kg for 4-6 weeks and gradually taper it off Recommend starting down titration at 80 mg daily (can do 40 mg twice daily) and reducing by 10 mg/week until he is titrated down to off. Recommend PJP prophylaxis while on the high doses of steroids greater than 20 mg. Would require Bactrim Monday/Monday/Monday while on dose of prednisone greater than 20 mg daily. Commend adding pantoprazole as well as vitamin D on a daily basis * Currently treated with aggressive intravenous steroids as well as prophylactic Bactrim dosing. GI/NUTRITION - * Start trophic feedings. RENAL/LYTES - * No significant electrolyte derangements. * IVF: Hold on replacement IV fluid for now. - * Damico in place - Strict I&Os. ENDO - * No history of diabetes. * Will need to change levothyroxine to IV tomorrow. HEME - * Stable H&H. * WBCs trending down. ID - * Continue oxacillin and Bactrim prophylaxis * Procalcitonin slightly elevated now at 2.45 * Repeat cultures pending. Admission and Anticipated Discharge Date Admission Date: December 06, 2023 Supervising Physician Co-Signing Physician Notes I saw and evaluated the patient with David Araiza PA-C, and agree with findings and plan as documented in the note. Patient seen and examined at bedside. Patient was breathing in the 30s over the vent He was on 35 propofol and 50 of fentanyl. RASS -2, not following any commands His MAP was in the high 60s. Constitutional: No acute distress HEENT: PERRLA Respiratory system: Decreased air entry bilaterally, no wheeze, no rhonchi, positive crackles appreciated bilateral lower lobes, questionable Velcro-like CVS: S1-S2 positive, no murmurs or gallops Abdomen: Soft, nontender, nondistended, positive bowel sounds x4 Extremities: +2 pulses bilaterally radialis/ dorsalis pedis, no cyanosis, +1 pitting edema bilateral lower extremity Neuro: RASS -2, breathing over the vent Psych: Unable to assess G/U: Positive Damico --Prophylaxis VTE: Heparin GI: Pantoprazole twice daily Lines: Right radial, peripheral, positive Damico Diet: Tube feeds Plan: In/out: -482, urine output 931 Patient has been spiking fever. This could be from intubation itself CTA of the chest was repeated today which showed worsening opacities. No pulmonary emboli Plan will be to do bronchoscopy today. QTc 461. Will try to get oncology involved as well given that he has stage IV pneumonitis from Keytruda. Try to go down on FiO2 and PEEP to keep saturation around 92% Patient sister was at bedside was updated I have personally spent 45 minutes of critical care time in the direct management of this patient. This is a life/limb threatening event. This includes time spent evaluating patient, direct bedside care, chart review, placing orders, interpretation of diagnostic studies, discussion with consultants, patient, and family members, as well as other required patient management activities. This time is exclusive of all separately billable procedures, and teaching time and separate from and in addition to any other critical care service time. Thank you for allowing us to participate in the care of this patient. Please refer to my attending physician's documentation for any further recommendations. Subjective Patient seen and evaluated bedside. Intubated and sedated. Review of Systems 2 Review of Systems: Unable to obtain. Physical Exam 2 Physical Exam: VITAL SIGNS Vital signs and nursing notes were reviewed. GENERAL 73-year-old male appearing his stated age who is in no acute distress. Communicates well with provider and answers questions appropriately. LUNGS Chest wall evaluation demonstrates normal chest wall A:P diameter. Auscultation reveals weak inspiratory effort. Fine crackles. No wheezing. CARDIAC RRR with S1/S2. No murmur, rubs, or gallops appreciated. EXTREMITIES Nail clubbing not present. No peripheral cyanosis. No pretibial edema present. +3/5 radial palpated throughout. PSYCH A&Ox3 and cooperates fully with examiner. Pt is very pleasant and interacts well with examiner. Skin: no rashes, warm and dry Lymphatic: no cervical or axillary lymphadenopathy Results & Data Results & Data Vital Signs (Past 12 Hours) Vital Signs Temp Pulse Resp BP Pulse Ox O2 Del Method FiO2 12/13/23 12:00 95/61 L 12/13/23 11:57 37.8 C H 74 26 H 98 Mechanical Vent 100 12/13/23 11:30 37.8 C H 79 26 H 94 12/13/23 11:30 106/57 L 12/13/23 11:30 106/57 L 12/13/23 11:30 106/57 L 12/13/23 11:09 82 26 H 96 100 12/13/23 11:00 37.8 C H 81 26 H 98 12/13/23 10:30 97/66 L 12/13/23 10:27 37.7 C H 81 27 H 98 12/13/23 10:00 105/69 12/13/23 10:00 105/69 12/13/23 09:54 37.5 C 79 31 H 98 Mechanical Vent 12/13/23 09:36 37.6 C H 80 29 H 98 Mechanical Vent 100 12/13/23 09:00 104/62 12/13/23 09:00 104/62 12/13/23 08:56 102/65 12/13/23 08:09 88 30 H 97 Mechanical Vent 100 12/13/23 08:00 111/74 12/13/23 08:00 38.2 C H 88 34 H 97 Mechanical Vent 100 12/13/23 07:40 86 26 H 97 100 12/13/23 07:30 96/67 L 12/13/23 07:30 96/67 L 12/13/23 07:30 96/67 L 12/13/23 07:30 38.1 C H 85 32 H 97 Mechanical Vent 100 12/13/23 07:03 37.9 C H 79 30 H 96 Mechanical Vent 100 12/13/23 07:00 97/65 L 12/13/23 07:00 97/65 L 12/13/23 03:45 76 31 H 91 100 Laboratory Results 12/13/23 04:38 12/13/23 04:38 Coding Level of Care Code 52684 CRITICAL CARE 1ST 30-74M Diagnoses Acute respiratory failure with hypoxia J96.01 Pneumonitis J98.4 Metastatic renal cell carcinoma to bone C79.51; C64.9
--- NOTE | 2023-12-13 15:08 | Electrocardiogram Report ---
Test Reason : Blood Pressure : */* mmHG Vent. Rate : 82 BPM Atrial Rate : 82 BPM P-R Int : 146 ms QRS Dur : 86 ms QT Int : 378 ms P-R-T Axes : 57 8 40 degrees QTcB Int : 441 ms Normal sinus rhythm Normal ECG When compared with ECG of 06-Dec-2023 12:25, No significant change was found Confirmed by Femi Lopez ([id number]) on 12/13/2023 3:07:41 PM Referred By: Rafael West Confirmed By: Femi Lopez
[2023-12-13] MEDS: TUBE FEEDING WATER FLUSH OG SCH (15:12)
[2023-12-13] MEDS: NOREPINEPHRINE/D5W 4 MG/250 ML PLCT IV SCH (16:11)
[2023-12-13] MEDS ORDERED: ROCURONIUM BROMIDE 10 MG/ML 5 ML VIAL IV ONE (16:14)
[2023-12-13] MEDS ORDERED: KETAMINE HCL INJ 50 MG/ML 10 ML VIAL IV ONE (16:14)
[2023-12-13] MEDS ORDERED: MIDAZOLAM HCL 5 MG/ML 2ML VIAL IV ONE (16:14)
[2023-12-13] MEDS ORDERED: fentaNYL citrate PF 100 MCG/2 ML VIAL IV ONE (16:14)
--- NOTE | 2023-12-13 17:52 | Procedure Note ---
Procedure Note: Bronchoscopy Procedure PREOPERATIVE DIAGNOSIS: Hypoxic respiratory failure with multiple tree-in-bud opacities POSTOPERATIVE DIAGNOSIS: Hypoxic respiratory failure with multiple tree-in-bud opacities/pneumonitis PROCEDURE PERFORMED: Flexible fiberoptic bronchoscopy with bronchoalveolar lavage COMPLICATIONS: None. INDICATION: Rule out infection PROCEDURE: After obtaining an informed consent from patient's , the patient was already in the ICU. The patient had appropriate oxygen, blood pressure, heart rate, and respiratory rate monitoring applied and monitored continuously throughout the procedure. Supplemental oxygen via nasal cannula as per nursing records was applied to the nasopharynx with adequate saturations achieved. Topical anesthesia with nebulized 1% lidocaine was achieved. Patient was already intubated. He was on fentanyl 100 and propofol 40. PEEP was decreased to 8 and FiO2 was increased to 100%. 50 mcg of fentanyl bolus was given prior to initiation Disposable flexible bronchoscope was advanced with the ETT As soon as I passed through the ET tube significant thick grayish morales secretions were appreciated at the krystal going into the right main as well as left main. There were more concentrated in the right main. They were suctioned out. I had to remove the bronchoscope couple of times to get the thick secretions out. After the secretions were cleared out The trachea appeared normal but the mucosa was friable.The bronchoscope was then advanced through the krystal, which was sharp. The scope was then advanced into the right main stem and each segment, subsegement in the right upper lobe, right middle lobe and right lower lobe were visualized. There were no other findings including evidence of mass, anatomic distortions, or hemorrhage. The bronchoscope was subsequently withdrawn and advanced into the left mainstem. Again, each segment and subsegment was well visualized. No specific masses or other lesions were identified throughout the tracheobronchial tree on the left. The bronchoscope was then wedged in the right middle lobe and bronchoalveolar lavage samples were obtained. 100 ml of saline was instilled and 40 ml of fluid was aspirated back.The bronchoscope was withdrawn and the area was suctioned clear. The bronchoscope was then withdrawn to the mainstem. The area was suctioned clear. The bronchoscope was then withdrawn. The patient tolerated the procedure well without evidence of desaturation or complications. Bronchoalveolar lavage samples were sent for cell count, Gram stain and bacterial culture, AFB culture and smear, fungal culture and smear, beta glucan, cryptococcus, Blastomyces, Coccidioides and cytology. Recommendations: Follow-up micro and cytology Follow-up chest x-ray Please note the above document was generated using voice recognition software. It may contain grammatical, syntax or spelling errors.Any formal questions or concerns about the content, text or information contained within the body of this dictation should be directly addressed to the provider for clarification. [facility] [place] Procedure Codes (Charges) Pulmonary/Thoracic Procedure 1: Pulmonary and Thoracic: 89200 Dx bronchoscopy/BAL Procedure 2: Pulmonary and Thoracic: 63187 Bronchoscopy, clear airways
--- NOTE | 2023-12-13 18:37 | XRay Report ---
XR chest 1V portable CLINICAL HISTORY: Post Bronchoscopy TECHNIQUE: Single frontal radiograph of the chest was obtained. Comparison: Comparison is made to chest radiograph 12/13/2023 FINDINGS: Lines and tubes are stable. Cardiomegaly is noted. Multifocal airspace opacities are seen. No evidenc e of pleural effusion or pneumothorax. IMPRESSION: Multifocal airspace opacities are again seen. No evidence of pneumothorax status post biopsy. ACT 112: Negative or not required by law. Electronically signed by: Douglas Loomis M.D. 12/13/2023 6:34 PM
[2023-12-13 19:31] LABS: Fluid Mono/Macrophage 21 %; Lymphocyte Body Fluid Man 21 %; Neutrophil Body Fluid Man 58 %
[2023-12-13] MEDS: ACETYLCYSTEINE 20% INHAL SOLN 4ML ***DISPENSED BY RESP. INH SCH (20:00)
[2023-12-13] MEDS: DOCUSATE SODIUM SYRUP 100 MG/10 ML UDC PO SCH (21:14)
--- NOTE | 2023-12-14 00:41 | Communication Note ---
Date of Service: December 14, 2023 Multiple hypoglycemic episodes requiring D50 supplementation. On minimal vasopressor 0.04mcg/kg/min norepinephrine. English Teacher note reviewed - will add trickle feeds via Peptamen 1.5. Coding Level of Care Code None
[2023-12-14] MEDS ORDERED: PEPTAMEN 1.5 CAL 1,000 ML BAG OG SCH (00:45)
[2023-12-14] MEDS: SODIUM CHLORIDE 0.9% 500 ML IV ONE (01:22)
[2023-12-14] MEDS: PEPTAMEN 1.5 CAL 1,000 ML BAG OG SCH (02:07)
[2023-12-14] MEDS: MIDAZOLAM HCL 1 MG/ML 2ML VIAL IV STA (02:32)
[2023-12-14] MEDS: MIDAZOLAM HCL 1 MG/ML 2ML VIAL ONE (02:33)
--- NOTE | 2023-12-14 03:02 | Procedure Note ---
Procedure Note Date of Service December 14, 2023 INTERNAL JUGULAR CENTRAL LINE PROCEDURE NOTE: Procedure: Internal Jugular Central Line Placement Attending: Dr. Lopez APC: Isabelle Lau PA-C Indication: Central Drug Administration, Poor Venous Access, Multiple Lab Draws Necessary, etc. Anesthesia: Lidocaine 1% Emergency situation A time-out was completed verifying correct patient, procedure, site, positioning, and implants(s) or special equipment if applicable. Patients L Neck was cleansed and draped in the typical sterile fashion using Chloraprep. The Internal Jugular Vein and Carotid Artery were identified using ultrasound. The superficial tissue was anesthetized using 5 mL of 1% lidocaine without epinephrine under direct visualization with the ultrasound. After adequate anesthetization was achieved, the Internal Jugular vein was cannulated under direct ultrasound guidance using an introducer needle on a syringe. Good venous blood return was maintained prior to removal of syringe from introducer needle. Using Seldinger Technique, a guide wire was advanced through the introducer needle without resistance. The introducer needle was removed and the guide wire was visualized within the Internal Jugular Vein on 2 views. A small incision was made in penetrating fashion at the guide wire insertion site utilizing an 11 blade scalpel. The dilator was advanced to the vessel without resistance. The dilator was exchanged for the triple lumen catheter which was advanced into the vessel without resistance. The guide wire was removed intact from the catheter without issue. Claves were placed on each catheter tip with confirmation of good blood flow from each lumen. Each port was easily flushed with sterile saline. The catheter was placed at 20 cm and sutured in place. A sterile Tegaderm dressing was applied over the catheter with careful attention to sterility. Patient tolerated procedure well. No immediate complications were met. Post procedure x-ray is pending. Attending: Dr. Lopez APC: Isabelle Lau PA-C Artery AND Vein visualized: Y Compressible Vein: Y Guidewire or Short Catheter seen in vein prior to dilation: Y Line confirmed in Vein with ultrasound: Y on 2 views Coding Additional Codes Date of Service (PG.SURGERY)
[2023-12-14] MEDS ORDERED: STAT IV Infusion **Titration per Protocol STA ×2 (03:14→06:43)
[2023-12-14] MEDS: VASOPRESSIN 20 UNITS in 0.9 % SODIUM CHLORIDE 100 ML IV SCH (03:37)
[2023-12-14 03:57] LABS: Albumin Globulin Ratio 0.8 (0.9-2); Albumin Level 2.4 gm/dl (3.4-5.0); BUN Creatinine Ratio 30.2 (10-20); Bilirubin,Total 0.7 mg/dl (0.2-1.0); Calcium 8.5 mg/dl (8.6-10.3); Creatinine Clr Calc Pharmacy 25.5 ml/min; Globulin 3.2 gm/dl (2.5-4.0); Magnesium 2.6 mg/dl (1.7-2.4); Phosphorus 7.9 mg/dl (2.5-4.9); Potassium 5.1 mmol/L (3.5-5.1); Total Protein 5.6 gm/dl (6.0-8.3)
[2023-12-14 04:15] LABS: Hematocrit (blood only) 28.7 % (42.0-52.0); Hemoglobin 8.7 g/dl (14.0-18.0); Mean Corpuscular Hemoglobin 24.6 pg (25.0-34.0); Mean Corpuscular Hgb Conc 30.3 g/dL (32.0-36.0); Mean Corpuscular Volume 81.3 fL (80.0-100.0); Mean Platelet Volume 9.8 fL (9.4-12.4); Platelet Count 439 K/uL (130-400); RDW Coefficient of Variation 19.5 % (11.5-14.5); RDW Standard Deviation 57.3 fL (36.4-46.3); Red Blood Count 3.53 M/uL (4.70-6.10); White Blood Count 24.38 K/ul (4.8-10.8)
[2023-12-14 04:16] LABS: Basophils # (auto) 0.04 K/uL (0.00-0.20); Basophils % (auto) 0.2 %; Echinocytes 1+; Eosinophils # (auto) 0.01 K/uL (0.00-0.50); Immature Granulocytes # (auto) 0.16 K/uL (0.01-0.20); Immature Granulocytes % (auto) 0.7 %; Lymphocytes # (auto) 0.12 K/uL (1.20-3.40); Lymphocytes % (auto) 0.5 %; Monocytes # (auto) 0.16 K/uL (0.11-0.59); Monocytes % (auto) 0.7 %; Neutrophils # (auto) 23.89 K/uL (1.40-6.50); Neutrophils % (auto) 97.9 %; Polychromasia 1+; Toxic Vacuolation 1+
[2023-12-14 04:26] LABS: iSTAT Art Bld Gas pCO2 Correct 55 mmHg (35-46); iSTAT Art Bld Gas pH Corrected 7.271 (7.35-7.45); iSTAT Arterial Blood Gas HCO3 25 meg/L (19-24); iSTAT Arterial Blood Gas pCO2 52 mmHg (35-46); iSTAT Arterial Blood Gas pH 7.28 (7.35-7.45); iSTAT Arterial Blood Gas pO2 87 mmHg (80-95); iSTAT Arterial Blood Gas pO2 C 93; iSTAT Carbon Dioxide 26 mmol/L (24-31); iSTAT FiO2 70 %; iSTAT Hematocrit 28 % (42-52); iSTAT Hemoglobin 9.5 g/dl (14.0-18.0); iSTAT Potassium 5.1 mmol/L (3.3-5.0); iSTAT Site Art Line; iSTAT Sodium 125 mmol/L (135-144)
--- NOTE | 2023-12-14 06:45 | XRay Report ---
XR chest 1V portable CLINICAL HISTORY: [facility] CVC COMPARISON STUDY: Chest CT December 13, 2023. Chest radiograph December 14, 2023 at 1:00 AM. FINDINGS: Tip of endotracheal tube is 3.2 cm above the krystal. There is no pneumothorax following scott cement of a left internal jugular central line. Catheter tip projects over the proximal right atrium. Tip of nasogastric tube is at least within the body of the stomach. There is no pleural effusion. In terstitial thickening and bilateral airspace opacities have slightly increased. IMPRESSION: 1. No pneumothorax following placement of a left internal jugular central line. 2. Satisfactory positioning of the endotracheal and nasogastric tubes. 3. Interstitial thickening and extensive bilateral airspace opacities which have mildly progressed. ACT 112: Negative or not required by law. Electronically signed by: Jose Antonio Krause M.D. 12/14/2023 6:44 AM
[2023-12-14] MEDS: PHENYLEPHRINE/NSS 25 MG/250 ML BAG IV SCH (06:54)
--- NOTE | 2023-12-14 07:17 | XRay Report ---
SINGLE VIEW CHEST CLINICAL HISTORY: Hypotension. Respiratory failure FINDINGS: An AP, portable, semierect chest radiograph is compared to chest x-ray and chest CT dated . Endotracheal and enteric tubes are unchanged in position. The heart is enlarged. There is p ulmonary vascular congestion. There is diffuse interstitial thickening with associated reticulonodula r change and airspace opacities, greatest in the lower lobes. No large pleural effusion or pneumothor ax is seen. The skeletal structures are osteopenic. The bony thorax is grossly intact. IMPRESSION: 1. Stable lines and tubes. 2. Cardiomegaly with evidence of congestive failure. 3. Reticular nodular thickening and multifocal airspace opacities are similar to yesterday's examinat ion. Radiographic follow-up to resolution is recommended. ACT 112: Negative or not required by law. Electronically signed by: Jim Griffin M.D. 12/14/2023 7:16 AM
--- NOTE | 2023-12-14 08:28 | Critical Care Progress Note ---
Date of Service December 14, 2023 Assessment & Plan (1) Acute respiratory failure with hypoxia: (2) Pneumonitis: (3) Metastatic renal cell carcinoma to bone: (4) ALEX (acute kidney injury): (5) Shock circulatory: (6) MDD (major depressive disorder): Plan Reason Critically Ill: 73-year-old male with a history of renal cell carcinoma with metastatic spread with lung injury likely in the setting of checkpoint inhibitor pneumonitis. Patient went into respiratory distress last evening and required endotracheal intubation. NEURO - * CAM ICU: Unable to assess secondary to sedation. * Sedation: Propofol * Pain: Fentanyl CARDIAC/VASCULAR - -- Shock Multifactorial Sedation along with possible sepsis RESPIRATORY - --VDRF with acute hypoxic respiratory failure Likely secondary to pneumonitis from Keytruda It will be classified as grade 3- 4 pneumonitis and it is recommended to discontinue Keytruda Negative for SARS Cov-2, influenza A/B and RSV on 12/06/2023 Procalcitonin 0.21 BNP 138 --> 44--> 60 S/p bronchoscopy 12/13/2023. Follow-up micro and cyto- Recommendation for grade 3-grade 4 pneumonitis is discontinuation of Keytruda and giving Solu-Medrol 1-2 mg/kg for 4-6 weeks and gradually taper it off Recommend starting down titration at 80 mg daily (can do 40 mg twice daily) and reducing by 10 mg/week until he is titrated down to off. Recommend PJP prophylaxis while on the high doses of steroids greater than 20 mg. Would require Bactrim Monday/Monday/Monday while on dose of prednisone greater than 20 mg daily. Commend adding pantoprazole as well as vitamin D on a daily basis * Currently treated with aggressive intravenous steroids as well as prophylactic Bactrim dosing. GI/NUTRITION - * Start trophic feedings. RENAL/LYTES - -- ALEX Monitor BUN/creatinine Avoid nephrotoxic medications Strict ins and outs - * Damico in place - Strict I&Os. ENDO - * No history of diabetes. * Will need to change levothyroxine to IV tomorrow. HEME - * Stable H&H. * WBCs trending down. ID - * Continue oxacillin and Bactrim prophylaxis * Procalcitonin slightly elevated now at 2.45 * Repeat cultures pending. --Prophylaxis VTE: Heparin GI: Pantoprazole twice daily Lines: Right radial, left IJ, peripheral, positive Damico Diet: Tube feeds Plan: In/out: +1754, urine output 945 Overall patient's condition has deteriorated compared to yesterday. Now is requiring 3 vasopressors. Urine output has gone down and his creatinine has bumped up Hyponatremia is probably because of IV fluids as well as Bactrim Hypoglycemic episodes could be because of Bactrim as well which will be discontinued. I will add hydrocortisone to the patient's regimen given the need of 3 vasopressors even though patient is already on Solu-Medrol Overall prognosis is guarded I have personally spent 48 minutes of critical care time in the direct management of this patient. This is a life/limb threatening event. This includes time spent evaluating patient, direct bedside care, chart review, placing orders, interpretation of diagnostic studies, discussion with consultants, patient, and family members, as well as other required patient management activities. This time is exclusive of all separately billable procedures, and teaching time and separate from and in addition to any other critical care service time. Thank you for allowing us to participate in the care of this patient. Please refer to my attending physician's documentation for any further recommendations. Admission and Anticipated Discharge Date Admission Date: December 06, 2023 Subjective Patient seen and examined at bedside. No acute distress Patient was on 0.17 of Levophed, 0.04 of vasopressin and 0.7 of phenylephrine Patient did have some episodes of hypoglycemia overnight. He was on fentanyl and propofol for sedation Breathing over the vent RASS -2 Still spiking fever Review of Systems 2 Review of Systems: Unobtainable due to endotracheal tube Physical Exam 2 Physical Exam: Constitutional: No acute distress HEENT: PERRLA Respiratory system: Decreased air entry bilaterally, no wheeze, minimal rhonchi, positive crackles appreciated bilateral lower lobes, questionable Velcro-like CVS: S1-S2 positive, no murmurs or gallops Abdomen: Soft, nontender, nondistended, positive bowel sounds x4 Extremities: +2 pulses bilaterally radialis/ dorsalis pedis, no cyanosis, +1 pitting edema bilateral lower extremity, left greater than right Neuro: RASS -2, breathing over the vent Psych: Unable to assess G/U: Positive Damico Skin: no rashes, warm and dry Lymphatic: no cervical or axillary lymphadenopathy Results & Data Results & Data Vital Signs (Past 12 Hours) Vital Signs Temp Pulse Resp BP Pulse Ox FiO2 12/14/23 07:40 92 H 24 93 70 12/14/23 06:20 109/57 L 12/14/23 06:06 37.9 C H 101 H 27 H 92 12/14/23 06:02 107/57 L 12/14/23 06:02 107/57 L 12/14/23 06:00 38.0 C H 100 H 24 92 12/14/23 05:50 123/66 12/14/23 05:33 38.0 C H 101 H 26 H 93 12/14/23 05:30 132/59 L 12/14/23 05:27 38.0 C H 101 H 24 92 12/14/23 05:03 38.0 C H 101 H 24 91 12/14/23 05:00 132/60 12/14/23 04:51 38.0 C H 100 H 23 91 12/14/23 04:30 37.9 C H 100 H 22 90 12/14/23 04:30 121/60 12/14/23 04:30 121/60 12/14/23 04:30 121/60 12/14/23 04:17 103 H 24 92 70 12/14/23 04:09 37.9 C H 104 H 20 91 12/14/23 04:00 123/59 L 12/14/23 03:57 37.8 C H 105 H 20 91 12/14/23 03:00 37.7 C H 101 H 21 92 12/14/23 03:00 105/53 L 12/14/23 03:00 105/53 L 12/14/23 03:00 105/53 L 12/14/23 02:57 107/53 L 12/14/23 02:57 107/53 L 12/14/23 02:51 37.6 C H 101 H 24 89 L 12/14/23 02:30 114/54 L 12/14/23 02:30 114/54 L 12/14/23 02:24 37.6 C H 102 H 20 91 12/14/23 02:15 37.5 C 101 H 23 93 12/14/23 02:00 117/58 L 12/14/23 02:00 96 H 23 92 70 12/14/23 01:54 37.4 C 97 H 22 92 12/14/23 01:33 37.5 C 99 H 22 92 12/14/23 01:30 121/57 L 12/14/23 01:09 37.6 C H 99 H 22 91 12/14/23 01:05 116/56 L 12/14/23 01:00 112/57 L 12/14/23 00:57 118/55 L 12/14/23 00:49 115/56 L 12/14/23 00:45 37.5 C 96 H 22 92 12/14/23 00:42 100/47 L 12/14/23 00:42 100/47 L 12/14/23 00:42 100/47 L 12/14/23 00:33 37.5 C 100 H 24 94 12/14/23 00:03 37.4 C 100 H 23 92 12/13/23 23:28 94 H 12/13/23 23:28 97 H 12/13/23 23:24 37.3 C 96 H 23 93 12/13/23 23:07 97 H 23 93 70 12/13/23 22:09 37.5 C 90 25 H 92 12/13/23 21:30 37.5 C 92 H 27 H 92 12/13/23 21:30 116/59 L 12/13/23 21:12 37.5 C 91 H 25 H 93 12/13/23 20:30 118/63 Laboratory Results 12/14/23 03:22 12/14/23 03:22 Coding Level of Care Code 73414 CRITICAL CARE 1ST 30-74M Diagnoses Acute respiratory failure with hypoxia J96.01 Pneumonitis J98.4 Metastatic renal cell carcinoma to bone C79.51; C64.9 ALEX (acute kidney injury) N17.9 Shock circulatory R57.9 MDD (major depressive disorder) F32.9
[2023-12-14 10:11] LABS: Appearance Urine Cloudy (Clear); Bacteria Urine Automated None Seen (None Seen); Bilirubin Urine Negative (Negative); Blood Urine Negative (Negative); Cast Urine Automated >20 /lpf (0-2); Color Urine Dark Yellow; Glucose Urine UA Negative (Negative); Granular Casts Urine Present /lpf (None Prsent); Hyaline Casts Urine Present /lpf (None Presnt); Ketones Urine 1+ (Negative); Leukocyte Esterase Urine 1+ (Negative); Nitrite Urine Negative (Negative); Protein Urine 1+ (Negative); Specific Gravity Urine 1.034 (1.000-1.030); Urobilinogen Urine Negative (Negative); pH Urine 5.5 (4.5-7.5)
[2023-12-14] MEDS: D5W AND NSS 1,000 ML IV SCH (10:28)
[2023-12-14] MEDS: ASPIRIN 81 MG CHEW OG SCH (10:31)
[2023-12-14] MEDS: HYDROCORTISONE SOD 100 MG in SYRINGE 0 ML IV STA (11:02)
[2023-12-14 11:07] LABS: Chloride Random Urine < 15 mmol/L; Potassium Random Urine 44.7 mmol/L; Sodium Random Urine 17 mmol/L
--- NOTE | 2023-12-14 11:14 | Electrocardiogram Report ---
Test Reason : Blood Pressure : */* mmHG Vent. Rate : 76 BPM Atrial Rate : 76 BPM P-R Int : 154 ms QRS Dur : 88 ms QT Int : 410 ms P-R-T Axes : 82 66 68 degrees QTcB Int : 461 ms Normal sinus rhythm Normal ECG When compared with ECG of 12-Dec-2023 17:59, Questionable change in QRS axis Confirmed by Femi Lopez ([id number]) on 12/14/2023 11:13:47 AM Referred By: Rafael West Confirmed By: Femi Lopez
--- NOTE | 2023-12-14 11:49 | Hospitalist Progress Note ---
Date of Service December 14, 2023 Assessment & Plan (1) Acute respiratory failure with hypoxia: (2) Pneumonitis: (3) Acute pulmonary edema: (4) Metastatic renal cell carcinoma to bone: (5) Hypertension: Plan Pt is a 73-year-old male with history of metastatic renal cell carcinoma, with osseous and pulmonary hilar/mediastinal mets, hypertension, and other problems noted below presenting with shortness of breath and cough x 1 to 2 weeks. Acute respiratory failure with hypoxia, Pneumonitis,likely secondary to immunotherapy Presence of mediastinal metastatic disease Acute kidney injury Patient presented with SOB and cough for 1-2 weeks. CTA chest from 11/30 with diffuse ground glass opacities Echo with EF of 60 to 65%, grade 1 diastolic dysfunction, moderate LVH Patient was admitted to medical floor; pulmonology was consulted for comanagemen t. He was started on steroid for Keytruda induced pneumonitis. His oxygen requirement gradually progressed. Patient was intubated and mechanically ventilated in the morning of 12/13/2023. CTA chest on 12/12 -no PE. Airspace consolidation is seen in both lungs in favors pneumonia/aspiration pneumonia. Cardiomegaly with evidence of congestive failure. Miliary micronodularity seen throughout the both lung with corresponding groundglass opacity. Bronchoscopy done on 12/12-thick grayish-morales secretion appreciated at the krystal and going into the right main as well as left main. BAL obtained. Cultures from BAL pending Blood culture from 12/12no growth till date Hemodynamic support with vasopressors as per ICU Mechanical ventilation and sedation as per ICU On stress dose steroids with hydrocortisone; also for Keytruda induced pneumonitis On Levaquin 750 mg once a day Acute on Chronic Diastolic Heart failure Chest XRAY concerning for cardiomegaly with CHF and pulmonary edema BNP elevated Received 2 doses of IV Lasix 40mg daily, transitioned to po lasix 20mg daily. on hold Chronic Anemia Hb around 8 to 9. monitor for now Metastatic renal cell carcinoma with osseous and pulmonary involvement Currently Keytruda on hold as per oncologist Dr. West Hypertension hypotensive requiring vasopressors Diet: OG tube feeding DVT prophylaxis: heparin SQ CODE STATUS:FULL CODE Dispo: critically sick, admitted to ICU Time spent evaluating patient, direct bedside care, chart review, placing orders, interpretation of diagnostic studies and family members, as well as other required patient management activities is 50 minutes Please note the above document was generated using voice recognition software. It may contain grammatical, syntax or spelling errors. Any formal questions or concerns about the content, text or information contained within the body of this dictation should be directly addressed to the provider for clarification Admission and Anticipated Discharge Date Admission Date: December 06, 2023 Subjective Patient seen and examined at bedside. He is intubated, mechanically ventilated and sedated He is also on vasopressors Is requiring 70% FiO2. Review of Systems Review of Systems: Unobtainable due to reduced consciousness Physical Exam Physical Exam: Constitutional: Mechanically ventilated and sedated. Respiratory: Bilateral mechanical breath sound Cardiovascular: RRR, no murmur, no edema Vessels: no JVD or carotid bruit Chest: normal inspection of chest Abdomen: Soft, bowel sound present. Neurologic: Sedated Results & Data Results & Data Vital Signs (Past 12 Hours) Vital Signs Temp Pulse Resp BP Pulse Ox FiO2 12/14/23 11:28 96 H 31 H 94 70 12/14/23 07:40 92 H 24 93 70 12/14/23 06:20 109/57 L 12/14/23 06:06 37.9 C H 101 H 27 H 92 12/14/23 06:02 107/57 L 12/14/23 06:02 107/57 L 12/14/23 06:00 38.0 C H 100 H 24 92 12/14/23 05:50 123/66 12/14/23 05:33 38.0 C H 101 H 26 H 93 12/14/23 05:30 132/59 L 12/14/23 05:27 38.0 C H 101 H 24 92 12/14/23 05:03 38.0 C H 101 H 24 91 12/14/23 05:00 132/60 12/14/23 04:51 38.0 C H 100 H 23 91 12/14/23 04:30 37.9 C H 100 H 22 90 12/14/23 04:30 121/60 12/14/23 04:30 121/60 12/14/23 04:30 121/60 12/14/23 04:17 103 H 24 92 70 12/14/23 04:09 37.9 C H 104 H 20 91 12/14/23 04:00 123/59 L 12/14/23 03:57 37.8 C H 105 H 20 91 12/14/23 03:00 37.7 C H 101 H 21 92 12/14/23 03:00 105/53 L 12/14/23 03:00 105/53 L 12/14/23 03:00 105/53 L 12/14/23 02:57 107/53 L 12/14/23 02:57 107/53 L 12/14/23 02:51 37.6 C H 101 H 24 89 L 12/14/23 02:30 114/54 L 12/14/23 02:30 114/54 L 12/14/23 02:24 37.6 C H 102 H 20 91 12/14/23 02:15 37.5 C 101 H 23 93 12/14/23 02:00 117/58 L 12/14/23 02:00 96 H 23 92 70 12/14/23 01:54 37.4 C 97 H 22 92 12/14/23 01:33 37.5 C 99 H 22 92 12/14/23 01:30 121/57 L 12/14/23 01:09 37.6 C H 99 H 22 91 12/14/23 01:05 116/56 L 12/14/23 01:00 112/57 L 12/14/23 00:57 118/55 L 12/14/23 00:49 115/56 L 12/14/23 00:45 37.5 C 96 H 22 92 12/14/23 00:42 100/47 L 12/14/23 00:42 100/47 L 12/14/23 00:42 100/47 L 12/14/23 00:33 37.5 C 100 H 24 94 12/14/23 00:03 37.4 C 100 H 23 92
[2023-12-14 11:50] LABS: Creatinine Urine Random 55.2 mg/dl
[2023-12-14] MEDS ORDERED: methylPREDNISolone 40 MG in SYRINGE 0 ML IV SCH (12:00)
--- NOTE | 2023-12-14 12:41 | Communication Note ---
Date of Service: December 14, 2023 Critical care addendum: I was in the room with patient's , sister as well as friends. I updated them regarding the patient's current condition and the requirement of multiple medications to maintain his blood pressure. Worsening kidney function. Patient's understands. She and the patient had talked about it before that if there is no improvement or worsening in his clinical status then he would not like it to be on a ventilator for a long time. They would like to proceed and keep the patient comfortable. Comfort measures will be initiated. Patient made DNR/DNI. All questions and queries of the patient's and family were answered in depth Patient will be on fentanyl drip to keep him comfortable RN was made aware at bedside I have personally spent 34 minutes of critical care time in the direct management of this patient. This is a life/limb threatening event. This includes time spent evaluating patient, direct bedside care, chart review, placing orders, interpretation of diagnostic studies, discussion with consultants, patient, and family members, as well as other required patient management activities. This time is exclusive of all separately billable procedures, and teaching time and separate from and in addition to any other critical care service time. Please note the above document was generated using voice recognition software. It may contain grammatical, syntax or spelling errors. Coding Level of Care Code 97924 CRITICAL CARE EA ADD 30M
[2023-12-14] MEDS ORDERED: LORazepam 2 MG/1 ML VIAL IV PRN (12:54)
[2023-12-14] MEDS ORDERED: ONDANSETRON INJ 2 MG/ML 2 ML VIAL IV PRN (12:54)
[2023-12-14] MEDS ORDERED: ATROPINE SULFATE 1% OP SOLN 5 ML BTL SL PRN (12:54)
[2023-12-14] MEDS ORDERED: GLYCOPYRROLATE 0.2 MG/ML VIAL IV PRN (12:54)
[2023-12-14] MEDS: GLYCOPYRROLATE 0.2 MG/ML VIAL ONE (13:11)
--- NOTE | 2023-12-14 13:26 | Communication Note ---
Date of Service: December 14, 2023 Patient was seen and examined . Heart and lung sounds are absent. No spontaneous cardiac or respiratory activity. Patient is not responsive/nonreactive to verbal or painful stimuli. He was pronounced at 13: 17 pm on 12/14/2023
--- NOTE | 2023-12-14 13:32 | Discharge Summary ---
Date of Service December 14, 2023 Admission HPI Per Admitting Provider 73-year-old male with history of metastatic renal cell carcinoma, with osseous and pulmonary hilar/mediastinal mets, hypertension, and other problems noted below presenting with shortness of breath and cough x 1 to 2 weeks. Patient follows with [facility] oncology and [facility] in [place]. About 2 weeks ago, patient developed dry cough and shortness of breath associated with some voice hoarseness. CT chest done as an outpatient showed new bilateral micronodular infiltrates consistent with pneumonitis. Symptoms felt to be multifactorial secondary to drug-induced pneumonitis, presence of bulky mediastinal mid metastatic disease process. He was started on prednisone 60 mg p.o. daily last November 28, 2023. Due to persistence of symptoms, patient was referred to dietary pulmonary service and was seen last December 04, 2023. He was advised to continue with the prednisone 60 mg p.o. daily and HCTZ 12.5 mg daily as needed for lower EXTR edema was also started. Today, patient presented to the ER for worsening of shortness of breath and cough. Denies fevers or chills. Found to be hypoxic in the ER in the high 90s on room air, placed on 2 L of O2 by cell cannula. Chest x-ray showing possible pulmonary edema and groundglass opacities possible infectious versus inflammatory in etiology. On exam, patient seen resting in bed, comfortable on 2 L of O2. No other new symptoms. Admission Exam Per Admitting Provider General- oriented x 3, not in distress, speaks in sentences with no effort or accessory muscle use Head- atraumatic Eyes- PERRL, EOMI, anicteric ENT- oropharynx clear Neck- supple, no JVD, no adenopathy, no thyromegaly; carotids +2/2, no bruits appreciated Lungs-Positive crackles bilateral bases, no wheezing, good air entry bilaterally Heart- normal rate, regular rhythm; no murmur, no gallop, no rub appreciated Abdomen- normal bowel sounds, nondistended, soft, nontender, no masses or hepa tosplenomegaly Extremities-mild lower extremity edema, no calf tenderness; peripheral pulses intact Neuro- alert, oriented x 3; CN 2-12 grossly intact; motor 5/5 bilaterally;sensation 100% on all extremities; no other gross focal neurologic deficits Skin- warm & dry Principal Diagnosis 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 Discharge Exam Patient at 13: 17 pm on 12/14/2023 Discharge Data Allergies Allergy/AdvReac Type Severity Reaction Status Date / Time Penicillins Allergy Intermediate Rash Verified 12/06/23 17:43 Consultations 12/06/23 13:48 ED Decision to Admit Stat 12/07/23 08:28 Consult Pulmonology Routine 12/08/23 07:36 Consult Cardiology Routine 12/12/23 18:51 Consult Market Development Manager Routine Ordered Studies 12/12/23 18:45 US liver Routine 12/13/23 07:11 CT angio chest PE protocol Stat Hospital Course (1) Acute respiratory failure with hypoxia: (2) Pneumonitis: Plan Patient is a 73-year-old male with history of metastatic renal cell carcinoma, with osseous and pulmonary hilar/mediastinal mets, hypertension, presented with shortness of breath and cough x 1 to 2 weeks. CTA chest from 11/30 with diffuse ground glass opacities Patient was admitted to medical floor; pulmonology was consulted for comanagement. He was started on steroid for Keytruda induced pneumonitis. His oxygen requirement gradually progressed to high flow nasal cannula. Due to increased respiratory distress, he was transferred to ICU and was intubated and mechanically ventilated in the morning of 12/13/2023. CTA chest on 12/12 -no PE. Airspace consolidation is seen in both lungs in favors pneumonia/aspiration pneumonia. Cardiomegaly with evidence of congestive failure. Miliary micronodularity seen throughout the both lung with corresponding groundglass opacity. In the ICU, patient needed multiple vasopressors for hemodynamic support. He also developed acute kidney failure. After discussion with the family by the advertising job titles; patient was transition to comfort care and palliative extubation was done. Patient at 13:17 p.m. at 12/14/2023. Family was at bedside. Please note the above document was generated using voice recognition software. It may contain grammatical, syntax or spelling errors. Any formal questions or concerns about the content, text or information contained within the body of this dictation should be directly addressed to the provider for clarification Total Time Total Time Spent Total Time Spent (In Minutes): 36 Total Time Includes: Examination of the Patient, Discharge Planning, Medication Reconciliation, Communication With Other Providers and Other Discharge Plan Discharge Items Patient Disposition: Home - Self-Care Reason For Visit: HYPOXIA, VOLUME OVERLOAD, PNEUMONIA Activity: Per Instructions section Non-emergency contact: Primary Care Provider and Community Theater Actor Call non-emergency contact if: you have any medication questions and your symptoms worsen Follow-up/Referrals: Joe Osborn MD [Primary Care Provider] - ( ) Isael Ang MD [Outside Practitioners] - (Date & Time 12/27/2023 12:00 PM Provider Isael Ang MD Department Pulmonary Medicine, [facility] ) Diet: Regular Addtl Attending Provider Instructions: [place], You are being discharged home after you are treated for acute hypoxic respiratory failure during this admission. He was seen by the assistant toddler teacher who believes your symptoms are related to your use of Keytruda. They recommended to stop Keytruda at this time and follow-up with your oncologist. You completed a course of antibiotics while hospitalized. Pulmonology recommends discharge home with prednisone 80 mg taper. They recommend that you start taking 80 mg daily for 7 days or 1 week, then you decrease by 5 mg every week or every 7 days after that until the taper is done. Please stop taking your home prednisone until this tapered course is done. We are discharging you home with oxygen for home use. Please continue using that to help with your breathing. Your oncologist prescribed the acetaminophen/codeine medication to help with your cough. Per records it appears that this was recently picked up on December 09. Please continue taking as prescribed to help with your cough and reach out to your oncologist for any further changes. Again, please keep close follow-up with your oncologist and assistant toddler teacher after discharge. Please also keep close follow up with your primary care provider after discharge. Please do not hesitate to come back to the emergency room if your symptoms worsen or return. It was a pleasure taking care of you while you were here. Pending Studies at Discharge: No Stand-Alone Forms: My [employer], Smoking Cessation Medications and DC Order Prescriptions: Continued aspirin 81 mg tablet,chewable 81 mg PO DAILY losartan [Cozaar] 25 mg tablet 25 mg PO DAILY finasteride 5 mg tablet 5 mg PO DAILY bupropion HCl [Wellbutrin SR] 100 mg tablet sustained-release 12 hr 100 mg PO BID simvastatin 10 mg tablet 10 mg PO DAILY ferrous sulfate 325 mg (65 mg iron) tablet,delayed release (DR/EC) 325 mg PO Q OTHER DAY multivitamin Tablet 1 tab PO DAILY cholecalciferol (vitamin D3) 100 mcg (4,000 unit) tablet 100 mcg PO DAILY ondansetron HCl 8 mg tablet 8 mg PO Q6H PRN (Reason: Nausea And Vomiting) Patient Comments: one hour before oral chemo prochlorperazine maleate [Compazine] 10 mg tablet 10 mg PO Q6H PRN (Reason: Nausea And Vomiting) mecobalamin (vitamin B12) 1,000 mcg tablet,chewable 1,000 mcg PO BID calcium carbonate [Calcium 500] 500 mg calcium (1,250 mg) tablet,chewable 500 mg PO BID acetaminophen-codeine 300-30 mg tablet 2 tab PO Q6H PRN (Reason: Pain) levothyroxine 25 mcg tablet 25 mcg PO DAILY albuterol sulfate 90 mcg/actuation HFA aerosol inhaler 2 puff INHALATION Q6H PRN (Reason: Dyspnea) Held prednisone 10 mg tablet 60 mg PO DAILY Hold Instructions: until completion of taper course Discontinued hydrochlorothiazide 12.5 mg tablet 12.5 mg PO DAILY Admission Data Admit Date/Time: 12/06/23 14:22 Attending Provider: Abdirizak Mcgarry Admit Provider: Rk Sanderson Primary Care Provider: Joe Osborn Other Providers: IRB Approved Study,Aggie; Randy Lopez; Rk Sanderson; Cedrick Faulkner
[2023-12-14] MEDS ORDERED: HYDROCORTISONE SOD 50 MG in SYRINGE 0 ML IV SCH (16:00)
[2023-12-15] MEDS ORDERED: levoFLOXacin/D5W 750 MG/150 ML BAG IV SCH (09:00)
[2023-12-18] MEDS ORDERED: LEVOTHYROXINE SODIUM 12.5 MCG in SYRINGE 0 ML IV SCH (09:00)
== END 2023-12-14 15:28 | disposition expired | DRG 208 ==
LOC: ED 12:01 → SUATTDRO 14:22 → 2N 14:22 → 2W 12-07 11:13 → 2E 12-12 16:00 → 1E 12-12 19:49